=== PATIENT | female | born 2000 | race Caucasian/White ===

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

== ENCOUNTER 2018-06-10 15:15 | Emergency (ER) | payer OTHER, SELFPAY ==
[2018-06-10 15:15] VITALS: BP 123/67; PULSE 62; RESP 18; TEMP 36.6; O2SAT 98; BMI 26.4
--- NOTE | 2018-06-10 15:47 | ED.VISSUMM ---
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 she believes she strained her back at work. She indicates she has pain to the lumbar back that is worse when she moves turns twists or tries to tie her shoes. She denies bowel or bladder complaints she does report history of sciatica that is been stable she had no direct trauma to her back, she is on Mirena control she denies being she has had no fever no cough again no bowel or bladder incontinence or symptoms or paresthesias in the area. She is taking ninx-yiz-ofxxyod meds with minimal improvement she is try to avoid the work activity but went to work recently and exacerbated things. She did Physical Examination: [] She is resting in the bed in no distress blood pressure is 123/67 head neck chest unremarkable abdomen soft nontender upper lower extremities unremarkable abdomen soft and nontender she complains of vague pain to the low lumbar back there is no pain to palpation to the T-spine lumbar spine really more over the SI joint she is able to stand and walk without difficulty she can toe raise heel raise knee bend and walk with no abnormalities there is no neurologic findings and she denies perineal anesthesia no signs of cauda equina and no trauma Test Results: [] Emergency Department Course and Treatment: [] Have a long conversation with her she agreed and imaging is deferred she will be started on nonsteroidals Flexeril off work and she will follow with her family doctor the next few days return for change in symptoms we offered her IM Toradol and she declined it Treatment Plan: [] Disposition: [] Home stable Impression: [] Acute lumbar back pain strain This note was generated with [employer] dictation software. It may contain incorrect words, spelling, and punctuation that were not noted in review of the chart prior to signing ED Disposition - Plan for ED Patient: Chief Complaint: Back Referrals: Ewelina Jarvis MD [Primary Care Provider] -
--- NOTE | 2018-06-10 15:50 | ED.DCSUM_ITS ---
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 she believes she strained her back at work. She indicates she has pain to the lumbar back that is worse when she moves turns twists or tries to tie her shoes. She denies bowel or bladder complaints she does report history of sciatica that is been stable she had no direct trauma to her back, she is on Mirena control she denies being she has had no fever no cough again no bowel or bladder incontinence or symptoms or paresthesias in the area. She is taking aquz-dkr-pjnhtyy meds with minimal improvement she is try to avoid the work activity but went to work recently and exacerbated things. She did Physical Examination: [] She is resting in the bed in no distress blood pressure is 123/67 head neck chest unremarkable abdomen soft nontender upper lower extremities unremarkable abdomen soft and nontender she complains of vague pain to the low lumbar back there is no pain to palpation to the T-spine lumbar spine really more over the SI joint she is able to stand and walk without difficulty she can toe raise heel raise knee bend and walk with no abnormalities there is no neurologic findings and she denies perineal anesthesia no signs of cauda equina and no trauma Test Results: [] Emergency Department Course and Treatment: [] Have a long conversation with her she agreed and imaging is deferred she will be started on nonsteroidals Flexeril off work and she will follow with her family doctor the next few days return for change in symptoms we offered her IM Toradol and she declined it Treatment Plan: [] Disposition: [] Home stable Impression: [] Acute lumbar back pain strain This note was generated with [employer] dictation software. It may contain incorrect words, spelling, and punctuation that were not noted in review of the chart prior to signing ED Disposition - Plan for ED Patient: Chief Complaint: Back Referrals: Ewelina Jarvis MD [Primary Care Provider] -
--- NOTE | 2018-06-10 15:50 | ED.DEP ---
ED Disposition - Plan for ED Patient: Chief Complaint: Back Instructions: ED Spasm Back No Trauma Prescriptions: Naproxen [Naprosyn] 500 mg PO BID PRN #20 tab Cyclobenzaprine [Flexeril] 10 mg PO TID PRN #10 tab PRN Reason: Muscle Spasm Referrals: Ewelina Jarvis MD [Primary Care Provider] -
--- NOTE | 2018-06-10 16:05 | ED.RN ---
DISCHARGE INSTRUCTIONS GIVEN TO AND REVIEWED WITH PATIENT, PATIENT DENIES QUESTIONS OR CONCERNS AND VOICES UNDERSTANDING OF DISCHARGE INSTRUCTIONS. PT AMBULATES OUT OF ROOM WITH STEADY GAIT.
== END 2018-06-10 16:05 | disposition home or self-care (01) ==
LOC: ED 15:41
PROVIDERS: Emergency Provider Emergency Medicine; Family Provider Pediatrics; PCP Pediatrics
DX: S39.012A Strain of muscle, fascia and tendon of lower back, initial encounter (principal); X50.1XXA Overexertion from prolonged static or awkward postures, initial encounter; Y93.89 Activity, other specified; Y92.511 Restaurant or cafe as the place of occurrence of the external cause; Y99.0 Civilian activity done for income or pay
CPT/HCPCS: 99282

== ENCOUNTER → 2018-09-15 11:50 | Outpatient (CLI) | payer OTHER, SELFPAY ==
[2018-06-27 13:32] VITALS: BMI 26.4
--- NOTE | 2018-09-15 11:54 | RAD_ITS ---
STUDY: X-RAY CHEST REASON FOR EXAM: Female, 18 years old. One-month history of cough. TECHNIQUE: PA and lateral views of the chest. COMPARISON: Comparison is made with prior study dated February 11, 2016. FINDINGS: The lungs are clear and expanded. There is no demonstrated pleural abnormality. Normal size heart. Normal mediastinum and irwin. Normal visualized pulmonary arteries. Normal visualized aortic arch and descending thoracic aorta. Normal visualized thoracic spine. Normal visualized ribs, clavicles, and shoulders. There is no demonstrated abnormality of the visualized soft tissue structures of the upper abdomen. RAD/Chest PA and Lateral IMPRESSION: Normal x-ray examination of the chest. Electronically Signed: Jan Polanco MD at 12:46 EST , Service support ,
== END ==
LOC: MTRAD 11:53
PROVIDERS: Family Provider Pediatrics; PCP Pediatrics; Referring Provider Pediatrics; Visit Provider Pediatrics
DX: R05 Cough (principal)
CPT/HCPCS: 71046

== ENCOUNTER → 2018-10-09 13:15 | Outpatient (CLI) | payer OTHER, SELFPAY ==
[2018-10-04 13:35] VITALS: BMI 26.4
--- NOTE | 2018-10-09 13:19 | US_ITS ---
STUDY: ULTRASOUND TRANSVAGINAL CLINICAL: Female, 18 years old. Pelvic pain one month, IUD check. TECHNIQUE: Transvaginal (Transvaginal imaging erformed for enhanced visualization of uterus and endometrium, and posterior adnexal structures). COMPARISON: None. FINDINGS: Anteverted uterus 6.7 x 4.8 x 3.1 cm with normal myometrial echotexture. Endometrium 5 mm, normal echotexture. Intrauterine device positioned within the endometrial canal of the fundus, appropriate positioning without evidence of abnormal migration. Normal cervix. There is no cul-de-sac or adnexal free fluid. The right ovary measures 35 x 35 x 26 mm and the left ovary 28 x 31 x 16 mm. It exhibits appropriate vascularity. The left ovary contains several small physiologic follicles. The right ovary contains multiple follicles the largest measuring approximate 16 mm and 13 mm respectively. Some of the follicles are aligned in each ovary in a string of pearls pattern along the periphery of the ovary suggesting the possibility of polycystic ovary syndrome. There is no adnexal mass or suspicious cyst. US/Transvaginal Non- IMPRESSION: Appropriate position of the IUD. Multi-follicular appearance of the ovaries bilaterally greater on the right. Correlate clinically for any symptoms at its manifestation of polycystic ovary syndrome. Electronically Signed: Tom Clark MD at 17:36 EDT Tel , Service support ,
--- NOTE | 2018-10-09 13:19 | US_ITS ---
STUDY: ULTRASOUND TRANSVAGINAL CLINICAL: Female, 18 years old. Pelvic pain one month, IUD check. TECHNIQUE: Transvaginal (Transvaginal imaging erformed for enhanced visualization of uterus and endometrium, and posterior adnexal structures). COMPARISON: None. FINDINGS: Anteverted uterus 6.7 x 4.8 x 3.1 cm with normal myometrial echotexture. Endometrium 5 mm, normal echotexture. Intrauterine device positioned within the endometrial canal of the fundus, appropriate positioning without evidence of abnormal migration. Normal cervix. There is no cul-de-sac or adnexal free fluid. The right ovary measures 35 x 35 x 26 mm and the left ovary 28 x 31 x 16 mm. It exhibits appropriate vascularity. The left ovary contains several small physiologic follicles. The right ovary contains multiple follicles the largest measuring approximate 16 mm and 13 mm respectively. Some of the follicles are aligned in each ovary in a string of pearls pattern along the periphery of the ovary suggesting the possibility of polycystic ovary syndrome. There is no adnexal mass or suspicious cyst. US/Pelvic (Non ) IMPRESSION: Appropriate position of the IUD. Multi-follicular appearance of the ovaries bilaterally greater on the right. Correlate clinically for any symptoms at its manifestation of polycystic ovary syndrome. Electronically Signed: Tom Clark MD at 17:36 EDT Tel , Service support ,
== END ==
PROVIDERS: Family Provider Pediatrics; PCP Pediatrics; Referring Provider Nurse Practitioner Women's Health; Visit Provider Nurse Practitioner Women's Health
DX: R10.2 Pelvic and perineal pain (principal); Z30.431 Encounter for routine checking of intrauterine contraceptive device
CPT/HCPCS: 76830; 76856; 93976

== ENCOUNTER → 2019-11-22 | Outpatient (CLI) | payer OTHER, SELFPAY ==
[2019-11-22 09:53] VITALS: BMI 26.4
== END | disposition home or self-care (01) ==
LOC: LABSPEC 13:03
PROVIDERS: Referring Provider Nurse Practitioner Women's Health; Visit Provider Nurse Practitioner Women's Health
DX: N39.0 Urinary tract infection, site not specified (principal); N76.0 Acute vaginitis
CPT/HCPCS: 87070; 87077; 87086; 87205

== ENCOUNTER → 2021-01-29 16:21 | Outpatient (CLI) | payer OTHER, SELFPAY ==
[2020-02-13 09:17] VITALS: BMI 26.4
--- NOTE | 2021-01-29 16:23 | CT_ITS ---
STUDY: CTA CHEST REASON FOR EXAM: Female, 20 years old. CHEST PAIN RADIATION DOSAGE (If Supplied By Facility): CTDIvol = ( 3.98 ) mGy, DLP = ( 113.98 ) mGycm TECHNIQUE: The examination was performed with the intravenous administration of IV 100mL Isovue-370. Post-processing of the angiographic images was performed, with multiplanar reformation and 3D reconstruction. Individualized dose optimization techniques were used for this CT. COMPARISON: None. FINDINGS: Normal enhancement of the main pulmonary artery and right and left pulmonary arteries. Normal enhancement of the bilateral peripheral pulmonary arteries. There is no demonstrated pulmonary embolism. Normal thoracic aorta and visualized great vessels. There is no demonstrated aortic dissection. Normal heart and pericardium. Normal mediastinum. Normal hilar regions. Normal visualized trachea and bronchi. The lungs are well expanded. Normal pulmonary parenchyma. Normal pleura. Normal chest wall structures. Normal osseous structures. Normal visualized upper abdomen. CT/CTA Chest W/WO Contrast IMPRESSION: Normal CTA chest examination, without a demonstrated pulmonary embolism or arterial dissection. Electronically Signed: Tom Cherry MD at 17:17 EDT Tel , Service support ,
== END ==
PROVIDERS: PCP Nurse Practitioner; Referring Provider Nurse Practitioner; Visit Provider Nurse Practitioner
DX: R07.9 Chest pain, unspecified (principal)
CPT/HCPCS: 71275; Q9967

== ENCOUNTER 2023-06-13 10:58 | Emergency (ER) | payer OTHER, SELFPAY ==
[2023-06-13 10:59] VITALS: BP 121/106; PULSE 70; RESP 18; TEMP 36.4; O2SAT 96; BMI 23.6
--- NOTE | 2023-06-13 11:28 | CT_ITS ---
STUDY: CT ABDOMEN AND PELVIS WITH CONTRAST REASON FOR EXAM: Female, 23 years old. rlq pain with nausea and vomiting. RADIATION DOSAGE (If Supplied By Facility): CTDIvol = ( 13.08 ) mGy, DLP = ( 440.32 ) mGycm TECHNIQUE: Transaxial images were obtained from the dome of the diaphragm to the symphysis pubis without oral contrast. IV 100mL Isovue-370 was administered. Sagittal and coronal images were reconstructed. Individualized dose optimization techniques were used for this CT. COMPARISON: None. FINDINGS: The visualized lung bases are unremarkable. The visualized portions of the heart are within normal limits. Mild degree of the periportal edematous changes in the liver. Normal gallbladder and extrahepatic biliary system. Normal spleen. Normal pancreas. Normal bilateral adrenal glands. Normal right kidney. There is a 6.9 mm x 5 mm cyst in the lower pole of the left kidney. Normal visualized stomach. Normal small intestine. Normal colon. The appendix is visualized and appears normal. Normal abdominal aorta. Normal inferior vena cava. Normal retroperitoneum. Normal urinary bladder. There is a 3.3 cm x 2.3 some persistent the right ovary. Follicles are seen in the left ovary. Normal abdominal wall. Normal osseous structures. CT/Abdomen/Pelvis W IV Cont ONLY IMPRESSION: Mild degree of periportal edema in the liver. Small right ovarian cyst. Follicles are seen in the left ovary. Electronically Signed: Jan Polanco MD at 13:01 EST ,
--- NOTE | 2023-06-13 11:29 | EDS_ITS ---
HPI <EM Bautista - Last Filed: 06/13/23 14:05> History of Present Illness Chief Complaint: Nausea/Vomiting/Diarrhea Narrative Narrative: 23-year-old female with past medical history of PCOS developed upper abdominal pain and nausea and vomiting yesterday at 5 AM. Pain moved to the right upper and lower quadrant area. She feels nauseous with decreased appetite today but no vomiting. No fever or chills. No urinary symptoms. She has bowel movements every few days and states they were watery yesterday. No melena or hematochezia. She takes no medications and has no abdominal surgical history. PFSH <EM Bautista - Last Filed: 06/13/23 14:05> [facility] Medical History (Updated 06/13/23 @ 13:12 by EM Bautista) Depression with anxiety Physical exam, pre-employment Vasovagal syncope Home Medications norelgestromin 150 mcg-e.estradiol 35 mcg/24 hr weekly transderm patch (Xulane) 1 patch transdermal QWEEK #3 ea 10/19/21 [Rx Last Taken Unknown] naproxen 500 mg tablet (Naprosyn) 500 mg PO BID PRN pain #20 tabs 06/13/23 [Rx Last Taken Unknown] ondansetron 4 mg disintegrating tablet 4 mg PO Q8H PRN PRN Nausea #10 tabs 06/13/23 [Rx Last Taken Unknown] Allergy/AdvReac Type Severity Reaction Status Date / Time amoxicillin [Amoxicillin] Allergy Unknown Verified 06/13/23 10:59 Family History Grandfather Lung cancer Hypertension Heart disease Father Multiple sclerosis Prostate cancer Grandfather Parkinsons disease Other Cancer Social History Smoking Status: Current every day smoker tobacco type: e-cigarettes alcohol intake: current details: occasionally substance use type: does not use caffeine: Yes what type of physical activity do you participate in: running frequency: 1-2 times per week seatbelt use: never do you feel safe at home: Yes additional social history: Single ROS <EM Bautista - Last Filed: 06/13/23 14:05> ROS ED ROS Narrative Constitutional: Negative for fever, chills, malaise. CVS: Negative for palpitations, chest pain. Respiratory: Negative for shortness of breath, cough. GI: Positive for abdominal pain, nausea, vomiting, diarrhea. Negative for melena, hematochezia. : Negative for dysuria, hematuria or frequency. EXAM <ME Bautista - Last Filed: 06/13/23 14:05> Physical Exam Narrative Exam Narrative: CONST: Patient sitting in no acute distress. EYES: Normal inspection. NECK: Normal inspection. RESP: No respiratory distress, CTAB. CVS: Regular rate and rhythm, no murmur, no gallop. ABD: Soft with generalized tenderness maximal in RLQ, no guarding or rebound, nondistended, no hepatosplenomegaly. SKIN: Color normal, no rash, warm, dry, intact. EXTREMITIES: Normal appearance, no pedal edema. NEURO: Oriented x4. PSYCH: Normal affect. Const Vital Signs: 06/13/23 10:59 06/13/23 13:20 Temperature 97.6 F L 97.6 F L Temperature Source Temporal Pulse Rate 70 64 Respiratory Rate 18 14 Blood Pressure 121/106 H Blood Pressure Mean 111 Pulse Ox 96 Oxygen Delivery Method Room Air <Dr. Jacques Woodall MD - Last Filed: 06/13/23 11:36> Physical Exam Const Vital Signs: 06/13/23 10:59 06/13/23 13:20 Temperature 97.6 F L 97.6 F L Temperature Source Temporal Pulse Rate 70 64 Respiratory Rate 18 14 Blood Pressure 121/106 H Blood Pressure Mean 111 Pulse Ox 96 Oxygen Delivery Method Room Air MDM <EM Bautista - Last Filed: 06/13/23 14:05> [facility] Narrative Medical decision making narrative: Patient has nausea and vomiting and abdominal pain. Initially started higher now settled in right lower quadrant. She appears well nontoxic. Afebrile with normal vital signs. Normal cardiopulmonary exam. She has generalized tenderness maximal in the right lower quadrant with no peritoneal signs. Differential includes appendicitis, ovarian etiology, gastritis. CBC is within normal limits with white count of 7.5. CMP unremarkable. Urine test negative. CT was obtained and shows small right ovarian cyst. No evidence of appendicitis. Patient feels improved after analgesia and antiemetics. I do not suspect torsion or think she needs an emergent ultrasound. I prescribed naproxen and Zofran and recommended follow-up with her TERMITE CONTROL REPRESENTATIVE. She was discharged in stable condition. I have personally performed a face to face assessment of the patient and have reviewed the DORA Note. I performed a substantive portion of the visit including all aspects of the following. My parada findings include: History is a 23-year-old female history of PCOS. No prior history of abdominal surgery. Yesterday started having nausea and vomiting and diffuse abdominal pain that is now localized to her right lower quadrant. Denies any fever. No dysuria. Exam is [well-appearing 23-year-old female. Vital signs stable afebrile. HEENT exam unremarkable. Neck nontender no JVD. Lungs clear to auscultation bilaterally. Heart regular rhythm no murmur rate about 70. Abdomen soft nondistended normal bowel sounds. Tender in the right lower quadrant. Mild guarding. No rigidity. No distention. Right upper and both left upper and left lower quadrants are unremarkable. No hernia or mass. Extremities unremarkable. Back nontender. She is awake and alert.] Medical Decision Making [3-year-old female that I am seeing with our PA. We will out appendicitis versus viral illness versus polycystic ovarian syndrome versus other etiologies.] Other additions or changes: [None] Lab Data Labs: Laboratory Results - last 24 hr 06/13/23 06/13/23 11:40 12:04 WBC 7.5 RBC 4.24 Hgb 13.3 Hct 41.1 MCV 96.9 MCH 31.4 MCHC 32.4 RDW Std Deviation 41.7 RDW Coeff of Dell 11.8 Plt Count 340 MPV 9.5 Immature Gran % (Auto) 0.300 Neut % (Auto) 56.3 Lymph % (Auto) 33.3 [place] % (Auto) 8.3 Eos % (Auto) 1.1 Baso % (Auto) 0.7 Absolute Neuts (auto) 4.2 Absolute Lymphs (auto) 2.50 Nucleated RBC % 0 Sodium 140 Potassium 3.6 Chloride 105 Carbon Dioxide 25.0 Anion Gap 10 BUN 8 Creatinine 0.72 Estim Creat Clear Calc 85.80 Est GFR (MDRD) Af Amer 127 Est GFR (MDRD) Non-Af 105 BUN/Creatinine Ratio 11.1 Glucose 86 Calcium 9.1 Total Bilirubin 0.60 AST 8 L ALT 16 Alkaline Phosphatase 51 Total Protein 8.1 Albumin 4.5 Globulin 3.6 Albumin/Globulin Ratio 1.2 Serum , Qual NEGATIVE Radiography Diagnostic Testing: Clinical Impression(s) from Imaging Studies Abdomen/Pelvis CT 06/13/23 11:28 IMPRESSION: Mild degree of periportal edema in the liver. Small right ovarian cyst. Follicles are seen in the left ovary. Electronically Signed: Jan Polanco MD at 13:01 EST , <Dr. Jacques Woodall MD - Last Filed: 06/13/23 11:36> MDM MDM Narrative Medical decision making narrative: I have personally performed a face to face assessment of the patient and have reviewed the DORA Note. I performed a substantive portion of the visit including all aspects of the following. My parada findings include: History is a 23-year-old female history of PCOS. No prior history of abdominal surgery. Yesterday started having nausea and vomiting and diffuse abdominal pain that is now localized to her right lower quadrant. Denies any fever. No dysuria. Exam is [well-appearing 23-year-old female. Vital signs stable afebrile. HEENT exam unremarkable. Neck nontender no JVD. Lungs clear to auscultation bilaterally. Heart regular rhythm no murmur rate about 70. Abdomen soft nondistended normal bowel sounds. Tender in the right lower quadrant. Mild guarding. No rigidity. No distention. Right upper and both left upper and left lower quadrants are unremarkable. No hernia or mass. Extremities unremarkable. Back nontender. She is awake and alert.] Medical Decision Making [3-year-old female that I am seeing with our PA. We will out appendicitis versus viral illness versus polycystic ovarian syndrome versus other etiologies.] Other additions or changes: [None] History & Record Review Discussion w/independent historian: Patient and Family Additional record(s) reviewed:: Prior inpatient record, Prior outpatient record and Prior ED visit Lab Data Labs: Laboratory Results - last 24 hr 06/13/23 06/13/23 11:40 12:04 WBC 7.5 RBC 4.24 Hgb 13.3 Hct 41.1 MCV 96.9 MCH 31.4 MCHC 32.4 RDW Std Deviation 41.7 RDW Coeff of Dell 11.8 Plt Count 340 MPV 9.5 Immature Gran % (Auto) 0.300 Neut % (Auto) 56.3 Lymph % (Auto) 33.3 [place] % (Auto) 8.3 Eos % (Auto) 1.1 Baso % (Auto) 0.7 Absolute Neuts (auto) 4.2 Absolute Lymphs (auto) 2.50 Nucleated RBC % 0 Sodium 140 Potassium 3.6 Chloride 105 Carbon Dioxide 25.0 Anion Gap 10 BUN 8 Creatinine 0.72 Estim Creat Clear Calc 85.80 Est GFR (MDRD) Af Amer 127 Est GFR (MDRD) Non-Af 105 BUN/Creatinine Ratio 11.1 Glucose 86 Calcium 9.1 Total Bilirubin 0.60 AST 8 L ALT 16 Alkaline Phosphatase 51 Total Protein 8.1 Albumin 4.5 Globulin 3.6 Albumin/Globulin Ratio 1.2 Serum , Qual NEGATIVE Radiography Diagnostic Testing: Clinical Impression(s) from Imaging Studies Abdomen/Pelvis CT 06/13/23 11:28 IMPRESSION: Mild degree of periportal edema in the liver. Small right ovarian cyst. Follicles are seen in the left ovary. Electronically Signed: Jan Polanco MD at 13:01 EST , Discharge Plan Triage Chief Complaint: Nausea/Vomiting/Diarrhea ED Midlevel Provider: Ary Lewis ED Provider: Jacques Woodall Dx/Rx/DC Orders Clinical Impression: Ovarian cyst, right Instructions: ED Ovarian Cyst Prescriptions: New naproxen [Naprosyn] 500 mg tablet 500 mg PO BID PRN (Reason: pain) Qty: 20 0RF ondansetron 4 mg tablet,disintegrating 4 mg PO Q8H PRN PRN (Reason: Nausea) Qty: 10 0RF No Action Xulane 150-35 mcg/24 hr patch weekly 1 patch transdermal QWEEK Qty: 3 7RF Rx Instructions: apply once weekly for 3 weeks of a 4-week cycle Primary Care Provider: Claire Jeffries NP Referrals: Claire Jeffries BINITROTOLUENE OPERATOR, BINITROTOLUENE OPERATOR-C [Primary Care Provider] - Activity Restrictions/Additional Instructions: In addition to the prescribed medications you can take Tylenol 1000 mg every 6 hours. Follow-up with [facility]MITE CONTROL REPRESENTATIVE Disposition Disposition: Home, Self Care Discharge Date/Time: 06/13/23 13:21
[2023-06-13] MEDS: 0.9% Normal Saline (1000mL) 1,000 ML 999 ML IV (11:42)
[2023-06-13] MEDS: Morphine 4 MG/ML Syringe IV (11:43)
[2023-06-13] MEDS: Ondansetron 4 MG/2 ML Vial IV (11:43)
[2023-06-13 11:46] LABS: Absolute Neutrophil Count 4.2 X10^3/uL (2.0-7.7); Basophil# 0.05 X10^3/uL; Basophil% 0.7 % (0-1); Eosinophil# 0.08 X10^3/uL; Eosinophils% 1.1 % (0-5); Hematocrit 41.1 % (37-47); Hemoglobin 13.3 g/dL (12.0-15.0); Lymphocyte % 33.3 % (19-41); Mean Corp Hgb Conc 32.4 g/dL (32-36); Mean Corpuscular Hgb 31.4 pg (27.0-32.0); Mean Corpuscular Volume 96.9 fL (81-99); Mean Platelet Vol. 9.5 fl (6.2-12.0); Monocyte# 0.62 X10^3/uL; Monocyte% 8.3 % (0-10); NRBC Flagged by Analyzer 0 % (0-5); Neutrophil # 4.24 X10^3/uL (2.7-7.7); Neutrophil % 56.3 % (47-70); Platelet Count 340 K/mm3 (150-450); RBC Distribution Width CV 11.8 % (11.6-14.6); RBC Distribution Width SD 41.7 fl (35.1-43.9); Red Blood Count 4.24 M/mm3 (4.2-5.4); White Blood Count 7.5 K/mm3 (4.4-11.0)
[2023-06-13] MEDS: DiphenhydrAMINE 50 MG/ML Syringe 25 MG IV (11:59)
[2023-06-13 12:01] LABS: ALB/GLOB Ratio 1.2 RATIO (0.9-2.4); AST(SGOT) 8 U/L (15-37); Alanine Aminotransfer ALT/SGPT 16 U/L (13-56); Albumin, Serum 4.5 g/dL (3.2-5.0); Alkaline Phosphatase 51 U/L (45-117); Anion Gap 10 (5-15); BUN 8 mg/dL (7-18); BUN/Creat Ratio 11.1 RATIO (10-20); Calcium,Total 9.1 mg/dL (8.5-10.1); Chloride 105 mmol/L (98-107); Creatinine, Serum 0.72 mg/dL (0.55-1.02); EST Glomerular Filtration Rate 105 mL/min (>60); Est Glom Filt Rate - Afr Amer 127 mL/min (>60); Globulin 3.6 g/dL (2.2-4.2); Glucose 86 mg/dL (74-106); Potassium 3.6 mmol/L (3.5-5.1); Protein, Total 8.1 g/dL (6.4-8.2); Sodium Level 140 mmol/L (136-145)
[2023-06-13 13:02] LABS: Pregnancy, Serum, hCG Quali. NEGATIVE Negative (0-9 Nonpreg)
[2023-06-13] MEDS: proMETHazine 25 MG Tablet 12.5 MG PO (13:16)
[2023-06-13] MEDS: Ketorolac 15 MG/ML Vial IV (13:16)
[2023-06-13 13:20] VITALS: PULSE 64; RESP 14; TEMP 36.4
[2023-06-13 14:02] LABS: Internal QC Validated? YES +Cl - CLEAR BKGD
== END 2023-06-13 13:21 | disposition home or self-care (01) ==
PROVIDERS: Physician Assistant; Emergency Provider Emergency Medicine; PCP Nurse Practitioner; Visit Provider Emergency Medicine
DX: N83.201 Unspecified ovarian cyst, right side (principal); F17.290 Nicotine dependence, other tobacco product, uncomplicated
CPT/HCPCS: 74177; 80053; 84703; 85025; 96374; 96375; 99283; J7030; Q9967; A4216; J2405

== ENCOUNTER → 2023-11-29 | Outpatient (CLI) | payer OTHER, SELFPAY ==
[2023-11-29 18:20] LABS: Vitamin B12 276 pg/mL (211-911)
[2023-11-29 18:53] LABS: Thyroid Stim Hormone (TSH) 0.95 uIU/mL (0.358-3.74)
[2023-12-01 15:09] LABS: Endomysial Antibody IgA Negative (Negative); HEPATITIS B SURFACE AG Negative (Negative); Hep C Antibodies Non Reactive (Non Reactive); Hepatitis A IgM Antibody Negative (Negative); Hepatitis B Core AB IgM Negative (Negative); Immunoglobulin A 192 mg/dL (87-352); t-Transglutaminase IgA <2 U/mL (0-3)
== END | disposition home or self-care (01) ==
PROVIDERS: PCP Internal Medicine; Referring Provider Nurse Practitioner Family; Visit Provider Nurse Practitioner Family
DX: Z11.59 Encounter for screening for other viral diseases (principal); F41.9 Anxiety disorder, unspecified; E55.9 Vitamin D deficiency, unspecified; R10.84 Generalized abdominal pain
CPT/HCPCS: 36415; 80074; 82306; 82607; 82746; 82784; 83516; 84443; 86255

== ENCOUNTER → 2024-05-23 | Outpatient (CLI) | payer OTHER, SELFPAY ==
--- OUTSIDE RECORDS SUMMARY | 2024-05-23 19:21 | XMS RPT_ITS | CCD ---
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 Service: \plain\f0\fs20\hich\f0 \dbch\f0\loch\f0\cf4\f s20 \emdash\plain\f0\fs20\ hich\f0\dbch\f0\loch\f 0\fs20\cell \X0A\pard\intbl\sspar aaux0\s0\li80\ri80\sl2 4\ql\keepn\plain\f0\fs 24\plain\f0\fs20\hich\ f0\dbch\f0\loch\f0\cf3 \fs20 Author Type: \plain\f0\fs20\hich\f0 \dbch\f0\loch\f0\cf4\f s20 Registered Nurse\plain\f0\fs20\hi ch\f0\dbch\f0\loch\f0\ fs20\cell \X0A\intbl\row \X0A\pard\intbl\sspar aaux0\s0\sl24\ql\keepn \plain\f0\fs24\plain\f 0\fs20\hich\f0\dbch\f0 \loch\f0\fs20\cell \X0A\pard\intbl\sspar aaux0\s0\li80\ri80\sl2 4\ql\keepn\plain\f0\fs 24\plain\f0\fs20\hich\ f0\dbch\f0\loch\f0\cf3 \fs20 Filed: \plain\f0\fs20\hich\f0 \dbch\f0\loch\f0\cf4\f s20 05/31/2022 4:02 PM\plain\f0\fs20\hich\ f0\dbch\f0\loch\f0\fs2 0\cell \X0A\pard\intbl\sspar aaux0\s0\li80\ri80\sl2 4\ql\keepn\plain\f0\fs 24\earl (more content not included)... Normal [facility] .Auto Diffon 09-24-2021 Basophil, Absolute 0.10 10 3/mcL Normal 0.00-0.19 [facility] ([place]) Comment on above: Performed By: #### C BC, ADIFF, ANEU, LIP, CMP, GFR #### [address] [address] Basophils/100 WBC (Bld) 1.1 % Normal 0.0-2.5 [facility] ([place]) Comment on above: Performed By: #### C BC, ADIFF, ANEU, LIP, CMP, GFR #### [address] [address] Eosinophil, Absolute 0.10 10 3/mcL Normal 0.00-0.40 [facility] ([place]) Comment on above: Performed By: #### C BC, ADIFF, ANEU, LIP, CMP, GFR #### [address] [address] Eosinophils/100 WBC (Bld) 0.8 % Normal 0.0-7.0 [facility] ([place]) Comment on above: Performed By: #### C BC, ADIFF, ANEU, LIP, CMP, GFR #### [address] [place] [address] Lymphocyte, Absolute 3.50 10 3/mcL Normal 0.77-3.85 [facility] ([place]) Comment on above: Performed By: #### C BC, ADIFF, ANEU, LIP, CMP, GFR #### [address] [address] Lymphocytes/100 WBC (Bld) 34.2 % Normal 10.0-50.0 [facility] ([place]) Comment on above: Performed By: #### C BC, ADIFF, ANEU, LIP, CMP, GFR #### [address] [address] Monocyte, Absolute 1.00 10 3/mcL Normal 0.15-1.00 [facility] ([place]) Comment on above: Performed By: #### C BC, ADIFF, ANEU, LIP, CMP, GFR #### [address] [address] Monocytes/100 WBC (Bld) 9.6 % Normal 1.7-13.0 [facility] ([place]) Comment on above: Performed By: #### C BC, ADIFF, ANEU, LIP, CMP, GFR #### [address] [address] Neutrophils/100 WBC (Bld) 54.3 % Normal 37.0-80.0 [facility] ([place]) Comment on above: Performed By: #### C BC, ADIFF, ANEU, LIP, CMP, GFR #### [address] [address] .GFRon 09-24-2021 GFR 109 ml/min/1.73sqm Normal [facility] ([place]) Comment on above: Result Comment: GFR Population mean for , Non- Americans Ages 20-29 = 116 mL/min/1.73 sq.m. Ages 30-39 = 107 mL/min/1.73 sq.m. Ages 40-49 = 99 mL/min/1.73 sq.m. Ages 50-59 = 93 mL/min/1.73 sq.m. Ages 60-69 = 85 mL/min/1.73 sq.m. Ages 70+ = 75 mL/min/1.73 sq.m. Chronic Kidney Disease: Less than 60 mL/min/1.73 square meters End Stage Renal Disease: Less than 15 mL/min/1.73 square meters Performed By: #### C BC, ADIFF, ANEU, LIP, CMP, GFR #### [address] [address] GFR Non- 90 ml/min/1.73sqm Normal [facility] ([place]) Comment on above: Result Comment: GFR Population mean for , Non- Americans Ages 20-29 = 116 mL/min/1.73 sq.m. Ages 30-39 = 107 mL/min/1.73 sq.m. Ages 40-49 = 99 mL/min/1.73 sq.m. Ages 50-59 = 93 mL/min/1.73 sq.m. Ages 60-69 = 85 mL/min/1.73 sq.m. Ages 70+ = 75 mL/min/1.73 sq.m. Chronic Kidney Disease: Less than 60 mL/min/1.73 square meters End Stage Renal Disease: Less than 15 mL/min/1.73 square meters Performed By: #### C BC, ADIFF, ANEU, LIP, CMP, GFR #### [address] [address] .NEUABSon 09-24-2021 Neutrophil, Absolute 5.60 10 3/mcL Normal 2.85-6.16 [facility] ([place]) Comment on above: Performed By: #### C BC, ADIFF, ANEU, LIP, CMP, GFR #### [address] [address] CBCon 09-24-2021 Erythrocyte distribution width (RBC) [Ratio] 11.9 % Normal 11.5-14.5 [facility] ([place]) Comment on above: Performed By: #### C BC, ADIFF, ANEU, LIP, CMP, GFR #### [address] [address] Hematocrit (Bld) [Volume fraction] 36.9 % Low 37.0-47.0 [facility] ([place]) Comment on above: Performed By: #### C BC, ADIFF, ANEU, LIP, CMP, GFR #### [address] [address] Hgb 12.2 G/dL Normal 12.0-16.0 [facility] ([place]) Comment on above: Performed By: #### C BC, ADIFF, ANEU, LIP, CMP, GFR #### [address] [address] MCH (RBC) [Entitic mass] 31.7 pg High 27.0-31.2 [facility] ([place]) Comment on above: Performed By: #### C BC, ADIFF, ANEU, LIP, CMP, GFR #### [address] [address] MCHC 33.1 G/dL Normal 33.0-37.0 [facility] ([place]) Comment on above: Performed By: #### C BC, ADIFF, ANEU, LIP, CMP, GFR #### [address] [address] MCV (RBC) [Entitic vol] 95.7 fL High 80.0-94.0 [facility] ([place]) Comment on above: Performed By: #### C BC, ADIFF, ANEU, LIP, CMP, GFR #### [address] [address] Platelet 342 10 3/mcL Normal 130-400 [facility] ([place]) Comment on above: Performed By: #### C BC, ADIFF, ANEU, LIP, CMP, GFR #### [address] [address] Platelet mean volume (Bld) [Entitic vol] 7.9 fL Normal 7.4-10.4 [facility] ([place]) Comment on above: Performed By: #### C BC, ADIFF, ANEU, LIP, CMP, GFR #### [address] [address] RBC 3.86 10 6/mcL Low 4.20-5.40 [facility] ([place]) Comment on above: Performed By: #### C BC, ADIFF, ANEU, LIP, CMP, GFR #### [address] [address] WBC 10.30 10 3/mcL Normal 4.60-10.80 [facility] ([place]) Comment on above: Performed By: #### C BC, ADIFF, ANEU, LIP, CMP, GFR #### [address] [address] CMPon 09-24-2021 Albumin Level 4.2 G/dL Normal 3.5-5.0 [facility] ([place]) Comment on above: Performed By: #### C BC, ADIFF, ANEU, LIP, CMP, GFR #### [address] [address] Albumin/Globulin [Mass ratio] 1.8 {ratio} Normal 1.1-2.5 [facility] ([place]) Comment on above: Performed By: #### C BC, ADIFF, ANEU, LIP, CMP, GFR #### [address] [address] ALP [Catalytic activity/Vol] 46 U/L Normal 40-135 [facility] ([place]) Comment on above: Performed By: #### C BC, ADIFF, ANEU, LIP, CMP, GFR #### [address] [address] ALT [Catalytic activity/Vol] 16 U/L Normal 14-59 [facility] ([place]) Comment on above: Performed By: #### C BC, ADIFF, ANEU, LIP, CMP, GFR #### [address] [address] AST [Catalytic activity/Vol] 12 U/L Normal 10-40 [facility] ([place]) Comment on above: Performed By: #### C BC, ADIFF, ANEU, LIP, CMP, GFR #### [address] [address] Bili Total 0.7 mg/dL Normal 0.2-1.0 [facility] ([place]) Comment on above: Result Comment: Use of this assay is not recommended for patients undergoing treatment with eltrombopag due to the potential for falsely elevated results. Performed By: #### C BC, ADIFF, ANEU, LIP, CMP, GFR #### [address] [address] BUN/Creatinine Ratio 15 ratio Normal 7-27 [facility] ([place]) Comment on above: Performed By: #### C BC, ADIFF, ANEU, LIP, CMP, GFR #### [address] [address] Calcium [Mass/Vol] 8.5 mg/dL Normal 8.4-10.2 [facility] ([place]) Comment on above: Performed By: #### C BC, ADIFF, ANEU, LIP, CMP, GFR #### [address] [address] Chloride [Moles/Vol] 105 mmol/L Normal 98-107 [facility] ([place]) Comment on above: Performed By: #### C BC, ADIFF, ANEU, LIP, CMP, GFR #### [address] [address] CO2 [Moles/Vol] 24 mmol/L Normal 22-29 [facility] ([place]) Comment on above: Performed By: #### C BC, ADIFF, ANEU, LIP, CMP, GFR #### [address] [address] Creatinine [Mass/Vol] 0.79 mg/dL Normal 0.55-1.02 [facility] ([place]) Comment on above: Performed By: #### C BC, ADIFF, ANEU, LIP, CMP, GFR #### [address] [address] Electrolyte Balance 12.0 mEq/L Normal 4.0-15.0 [facility] ([place]) Comment on above: Performed By: #### C BC, ADIFF, ANEU, LIP, CMP, GFR #### [address] [address] Globulin 2.4 G/dL Normal [facility] ([place]) Comment on above: Performed By: #### C BC, ADIFF, ANEU, LIP, CMP, GFR #### [address] [address] Glucose [Mass/Vol] 93 mg/dL Normal 70-105 [facility] ([place]) Comment on above: Performed By: #### C BC, ADIFF, ANEU, LIP, CMP, GFR #### [address] [address] Potassium [Moles/Vol] 3.5 mmol/L Normal 3.5-5.1 [facility] ([place]) Comment on above: Performed By: #### C BC, ADIFF, ANEU, LIP, CMP, GFR #### [address] [address] Sodium [Moles/Vol] 141 mmol/L Normal 136-145 [facility] ([place]) Comment on above: Performed By: #### C BC, ADIFF, ANEU, LIP, CMP, GFR #### [address] [address] Total Protein 6.6 G/dL Normal 6.4-8.2 [facility]) Comment on above: Performed By: #### C BC, ADIFF, ANEU, LIP, CMP, GFR #### [address] [address] Urea nitrogen [Mass/Vol] 12 mg/dL Normal 7-18 [facility]) Comment on above: Performed By: #### C BC, ADIFF, ANEU, LIP, CMP, GFR #### [address] [address] [place] 09-24-2021 [facility] ANYI JENK[facility] ([id number]) 2000 F Date Time Provider Department 09/24/21 KASSIE CARMONA During your visit today, we recorded the following information about you: Lupe Annelise 09/24/2021 1:10 PM Signed ----- Message from Kassie Carmona APRN.BENCH PRESS OPERATOR sent at 09/24/2021 12:27 PM EST ----- Urine culture was normal. BV, yeast, and trichomonas test was negative. RY Conley 09/24/2021 1:11 PM Signed Patient given results and verbalized understanding of instructions given. Lupe Osborne Allergies As of Date: 09/24/2021 Noted Allergy Reaction AMOXICILLIN 02/12/2013 2 - Rash Date Reviewed: 09/22/2021 Reviewed by: Minh Durand APRN.BENCH PRESS OPERATOR - Fully Assessed Reason for Visit: Results [95] Prescriptions as of 09/24/2021 - benzonatate (TESSALON PERLE) 100 mg capsule Take 2 capsules by mouth three times daily as needed. - ondansetron orally disintegrating (ZOFRAN ODT) 4 mg disintegrating tablet Take 1 tablet by mouth every 6 hours as needed for Nausea/Vomiting. - albuterol HFA (PROAIR HFA) 90 mcg/actuation inhaler Inhale 2 Puffs as instructed every 4 hours as needed. Problem List As Of Date: 09/24/2021 (None) Encounter Status:Closed by LUPE OSBORNE on 09/24/21 Normal [facility] CT ABD/PELVIS W/ IV CONTRAST ONLYon 09-24-2021 CT ABD/PELVIS W/ IV CONTRAST ONLY ORIGINAL EXAMINATION: CT OF THE ABDOMEN AND PELVIS WITH CONTRAST 09/24/2021 8:15 am TECHNIQUE: CT of the abdomen and pelvis was performed with the administration of intravenous contrast. Multiplanar reformatted images are provided for review. Dose modulation, iterative reconstruction, and/or weight based adjustment of the mA/kV was utilized to reduce the radiation dose to as low as reasonably achievable. COMPARISON: None. HISTORY: ORDERING SYSTEM PROVIDED HISTORY: Reason for Exam: abdominal pain/flank pain Left flank pain FINDINGS: Lower Chest: Lung bases demonstrate mild atelectasis. Organs: Liver demonstrates patchy peripheral irregular enhancement and prominent distension of the intrahepatic portal veins. This appears as a edematous appearance adjacent to the patent vasculature. The spleen is mildly heterogeneous otherwise within normal limits. The adrenal glands and gallbladder appear within normal limits. The pancreas appears within limits. Left kidney demonstrates a subcentimeter hypodensity which is too small to accurately characterize statistically likely to represent cysts otherwise, the kidneys are within normal limits. GI/Bowel: Under distension of the stomach noted. The appendix is visualized in the right lower quadrant and appears within normal limits. No obstructive change of the bowel. Pelvis: Urinary bladder is mildly enlarged and otherwise within normal limits. Uterus is present with an IUD. Ovaries are present. Peritoneum/Retroperito neum: No free air or enlarged lymphadenopathy in the abdomen or pelvis. Trace free fluid in pelvis is likely physiologic. Bones/Soft Tissues: No acute or aggressive osseous abnormality. IMPRESSION: Mildly heterogeneous appearance of liver enhancement and prominent periportal edema. These findings are nonspecific but can be seen the setting of over-hydration or alternatively etiology such as hepatitis. Recommend correlation with flu status as well as laboratory values. Given fullness of the IVC, fluid status is considered slightly more likely. Interpreted by: Mal Lee Preliminary Report By: Mal Lee Electronically signed By Mal Lee Dictated Date: 09/24/2021 8:21:08 AM Prelim Date: 09/24/2021 8:28:26 AM Sign Date: 09/24/2021 8:28:26 AM Ordering Provider: ANDRE KING [facility]) HEPACon 09-24-2021 Hep A IgM Ab Non-Reactive Normal Non-Reactive [facility] ([place]) Comment on above: Performed By: #### H EPAC #### [address] [address] Hep A IgM Ab Int [facility] ([place]) Comment on above: Result Comment: No s erological evidence of a current Hepatitis A infection. See Interp Performed By: #### H EPAC #### [address] [address] Hep B Core IgM Ab Non-Reactive Normal Non-Reactive [facility]) Comment on above: Performed By: #### H EPAC #### [address] [address] Hep B Core IgM Ab Int Normal [facility] ([place]) Comment on above: Result Comment: Samp les with a value < 0.80 Index are considered nonreactive (negative) for IgM antibodies to hepatitis B core antigen. See Interp Performed By: #### H EPAC #### [place] [address] Hep B Surf Ag Non-Reactive Normal Non-Reactive [facility] ([place]) Comment on above: Performed By: #### H EPAC #### [place] [id number] Hep C Ab Non-Reactive Normal Non-Reactive [facility] ([place]) Comment on above: Performed By: #### H EPAC #### [place] [address] Hep C Ab Int [facility] ([place]) Comment on above: Result Comment: Nonr eactive: Samples with a value < 0.80 are considered nonreactive (negative) for antibodies to HCV. A negative test result does not exclude the possibility of exposure to or infection with HCV. HCV antibodies may be undetectable in some stages of the infection and in some clinical conditions. See Interp Performed By: #### H EPAC #### [address] [address] LIPon 09-24-2021 Lipase Level 75 U/L Normal 73-393 [facility] ([place]) Comment on above: Performed By: #### C BC, ADIFF, ANEU, LIP, CMP, GFR #### [place]te[address] [address] PREGUon 09-24-2021 HCG ( test) Ql (U) Negative Normal [facility] ([place]) Comment on above: Performed By: #### P REGU, UA #### [place] [address] [place], [place] [address] test (u) int Not detected Invalid Interpretation Code [facility] ([place]) Comment on above: Performed By: #### P REGU, UA #### [address] [address] UAon 09-24-2021 Color (U) Yellow Normal [facility] ([place]) Comment on above: Performed By: #### P REGU, UA #### [place] [address] Glucose (U) [Mass/Vol] Negative Normal Negative [facility] ([place]) Comment on above: Performed By: #### P REGU, UA #### [place] [address] Ketones Ql (U) Negative Normal Negative [facility] ([place]) Comment on above: Performed By: #### P REGU, UA #### [place] [address] UA Appear Clear Normal Clear [facility] ([place]) Comment on above: Performed By: #### P REGU, UA #### [place] [address] UA Blood Negative Normal Negative [facility] ([place]) Comment on above: Performed By: #### P REGU, UA #### [place] [address] UA Leuk Est Negative Normal Negative [facility] ([place]) Comment on above: Performed By: #### P REGU, UA #### [place] [id number] UA Nitrite Negative Normal Negative [facility] ([place]) Comment on above: Performed By: #### P REGU, UA #### [address] [address] UA pH 6.0 Normal 5.0 - 8.0 [facility] ([place]) Comment on above: Performed By: #### P REGU, UA #### [place] [id number] UA Protein Negative Normal Negative [facility] ([place]) Comment on above: Performed By: #### P REGU, UA #### [place] [address] UA Spec Grav 1.010 Abnormal 1.015-1.025 [facility] ([place]) Comment on above: Performed By: #### P REGU, UA #### [place] [address] [place], [place] [address] UA Specimen Type Clean Catch Normal [facility] ([place]) Comment on above: Performed By: #### P REGU, UA #### [place] [address] [place], [place] [address] UA Urobilinogen 0.2 E.U./dL Normal 0.2-1.0 [facility] ([place]) Comment on above: Performed By: #### P REGU, UA #### [place] [address] [place], [place] [address] Urobilinogen (U) [Mass/Vol] Negative Normal Negative [facility] ([place]) Comment on above: Performed By: #### P REGU, UA #### [address] [address] Bact Vag Amplificationon Bact Vag Amplification Negative Normal Negative for bacterial vaginosis [facility] Comment on above: Performed By: #### B VAMP #### [facility] [address] [place], [place] [address] CNOVon 09-22-2021 CNOV Office Visit ([facility] ) ANYI JENKINS ([id number]) 2000 F Date Time Provider Department 09/22/21 6:45 PM MINH DURAND [facility] During your visit today, we recorded the following information about you: Temperature Pulse Respiration Blood pressure 98.2 degrees 62/minute 16/minute 110/82 Weight 56.6 kg Minh Durand APRN.BENCH PRESS OPERATOR 09/22/2021 7:11 PM Signed Subjective HPI A nontoxic appearing female presents to urgent care with chief complaint of possible UTI. Duration of symptoms 4 days. Associated symptoms dysuria, frequency, and urgency. Patient has history of UTIs in past with similar signs and symptoms. Patient denies the use of any [id number] medications or home remedies for symptom management. Patient states pain is a 3/10. Patient denies any fevers, flank pain, abdominal pain, nausea, vomiting, vaginal discharge, chance of STDs, chance of , or urological abnormalities. Past medical history prescription medication use allergies reviewed. .Patient presents with: UTI: low back pain, pain with urination No past medical history on file. No past surgical history on file. ALLERGIES Amoxicillin MEDICATIONS benzonatate (TESSALON PERLE) 100 mg capsule Take 2 capsules by mouth three times daily as needed. ondansetron orally disintegrating (ZOFRAN ODT) 4 mg disintegrating tablet Take 1 tablet by mouth every 6 hours as needed for Nausea/Vomiting. albuterol HFA (PROAIR HFA) 90 mcg/actuation inhaler Inhale 2 Puffs as instructed every 4 hours as needed. No family history on file. Social History Tobacco Use - Smoking status: Never Smoker - Smokeless tobacco: Never Used Substance Use Topics - Alcohol use: Not on file - Drug use: Not on file BP 110/82 Pulse 62 Temp 36.8 ?C (98.2 ?F) Resp 16 Wt 56.6 kg (124 lb 12.8 oz) LMP 02/27/2016 SpO2 98% Review of Systems Constitutional: Negative for chills, fever and malaise/fatigue. HENT: Negative for congestion, ear discharge, ear pain, sinus pain and sore throat. Eyes: Negative for blurred vision, pain, discharge and redness. Respiratory: Negative for cough, hemoptysis, sputum production, shortness of breath, wheezing and stridor. Cardiovascular: Negative for chest pain. Gastrointestinal: Negative for abdominal pain, diarrhea, nausea and vomiting. Genitourinary: Positive for dysuria, frequency and urgency. Negative for flank pain and hematuria. Musculoskeletal: Negative for myalgias. Skin: Negative for itching and rash. Neurological: Negative for dizziness and headaches. Objective Physical Exam Constitutional: General: She is not in acute distress. Appearance: She is not diaphoretic. HENT: Head: Normocephalic. Mouth/Throat: Mouth: Mucous membranes are moist. Pharynx: Oropharynx is clear. No oropharyngeal exudate or posterior oropharyngeal erythema. Eyes: Conjunctiva/sclera: Conjunctivae normal. Pupils: Pupils are equal, round, and reactive to light. Cardiovascular: Rate and Rhythm: Normal rate and regular rhythm. Heart sounds: Normal heart sounds. Pulmonary: Effort: Pulmonary effort is normal. No tachypnea, accessory muscle usage or respiratory distress. Breath sounds: Normal breath sounds. No stridor. Abdominal: General: Bowel sounds are normal. Palpations: Abdomen is soft. Tenderness: There is no abdominal tenderness. There is no right CVA tenderness or left CVA tenderness. Musculoskeletal: Cervical back: Normal range of motion and neck supple. No rigidity or tenderness. Lymphadenopathy: Cervical: No cervical adenopathy. Skin: General: Skin is warm and dry. Neurological: Mental Status: She is alert and oriented to person, place, and time. ASSESSMENT/PLAN: 1. Pain with urination - ICD9: 788.1, ICD10: R30.9 - UA DIP, URINE (POC) - URINE CULTURE - KAROLINE / TRICHOMONAS AMPLIFICATION - BACTERIAL VAGINOSIS AMPLIFICATION Urine negative. Will not treat with antibiotics at this time. Urine culture pending. Will treat accordingly. Vaginal swabs obtained by patient. We will treat accordingly when reviewed. Patient was educated on supportive therapies. Patient will follow up with MEDICAL ASSISTANT in 2 to 3 days for reevaluation. Patient was instructed to immediately proceed to emergency room for any new, worsening, or symptoms lasting longer than anticipated. The patient's clinical presentation is otherwise unremarkable at this time. Based on exam and clinical finding, the patient is stable for discharge. Plan of care was discussed with patient. Patient verbalizes understanding and agrees to plan of care. This note was generated using Press-sense software. It may contain errors in wording, punctuation, or spelling. Minh Durand, BLAIR.BENCH PRESS OPERATOR Referring Provider: SELF [[id number]] Allergies As of Date: 09/22/2021 Noted Allergy Reaction AMOXICILLIN 02/12/2013 2 - Rash Date Reviewe (more content not included)... Normal [facility] Karoline Trich Amplon 022 Karoline glabrata RNA Negative Normal Negative [facility] Comment on above: Performed By: #### C MTV #### [facility] [address] [place] [address] Karoline sp group RNA Negative Normal Negative [facility] Comment on above: Performed By: #### C VTV #### [place] [id number] [place] [address] Trichomonas RNA Negative Normal [facility] Comment on above: Performed By: #### C VTV #### [place] [id number] [place] [address] Urine Cultureon 09-22-2021 Bacteria identified Cx Nom (U) Sp. Request/Comment: - Specimen received in preservative Culture Result - 10,000 - <50,000 CFU/ml Normal urogenital mathew Normal [facility] Comment on above: Performed By: #### U RCUL #### [facility] [address] [place] [address] CNOVon 06-17-2021 [facility] ANYI JENKINS ([id number]) 2000 F Date Time Provider Department 06/17/21 4:45 PM MINH DURAND [facility] During your visit today, we recorded the following information about you: Temperature Pulse Respiration Blood pressure 99 degrees 67/minute 16/minute 108/82 Weight 56.5 kg Minh Durand APRN.BENCH PRESS OPERATOR 06/18/2021 3:38 PM Signed Subjective HPI Nontoxic-appearing female presents to urgent care chief complaint abdominal pain. Duration of symptoms 1 week. Associated symptoms nausea vomiting abdominal pain fatigue bilateral lower back pain. Denies any known sick contacts. States she is feeling better than she did previously. Denies any significant discomfort currently. Denies any recent vomiting. There is no blood in vomit. No OTC medication use today. Denies any fever body aches chills cough chest pain shortness of breath pleuritic pain lateral anesthesia incontinence change in bowel or bladder habits. Past medical history prescription medication use allergies reviewed. .Patient presents with: Abdominal Pain: vomiting, fatigue, low back pain x1 week History reviewed. No pertinent past medical history. History reviewed. No pertinent surgical history. ALLERGIES Amoxicillin MEDICATIONS benzonatate (TESSALON PERLE) 100 mg capsule Take 2 capsules by mouth three times daily as needed. ondansetron orally disintegrating (ZOFRAN ODT) 4 mg disintegrating tablet Take 1 tablet by mouth every 6 hours as needed for Nausea/Vomiting. albuterol HFA (PROAIR HFA) 90 mcg/actuation inhaler Inhale 2 Puffs as instructed every 4 hours as needed. History reviewed. No pertinent family history. Social History Tobacco Use - Smoking status: Never Smoker - Smokeless tobacco: Never Used Substance Use Topics - Alcohol use: Not on file - Drug use: Not on file BP 108/82 Pulse 67 Temp 37.2 ?C (99 ?F) Resp 16 Wt 56.5 kg (124 lb 9.6 oz) LMP 02/27/2016 SpO2 99% Review of Systems Constitutional: Negative for chills, fever and malaise/fatigue. HENT: Negative for congestion, ear discharge, ear pain, sinus pain and sore throat. Eyes: Negative for blurred vision, pain, discharge and redness. Respiratory: Negative for cough, hemoptysis, sputum production, shortness of breath, wheezing and stridor. Cardiovascular: Negative for chest pain. Gastrointestinal: Positive for abdominal pain, nausea and vomiting. Negative for diarrhea. Genitourinary: Negative for dysuria, flank pain, frequency, hematuria and urgency. Musculoskeletal: Negative for myalgias. Skin: Negative for itching and rash. Neurological: Negative for dizziness and headaches. Objective Physical Exam Constitutional: General: She is not in acute distress. Appearance: She is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 JOSUE 03/05/2020 15:42 Technologist: YADI [facility] XR Pelvis 1-2 Viewson 2019 XR Pelvis 1 or 2 views EXAM: XR Pelvis 1-2 Views, XR Chest 1 View. DATE OF EXAM: 03/05/2020 2:43 PM. HISTORY: Trauma. COMPARISON: None. FINDINGS: Chest: Cardiomediastinal contours are within normal limits. Lungs are clear. Lung volumes normal. No pneumothorax or pleural effusion. Osseous structures appear intact. Pelvis: IUD projects over the pelvis. No acute fracture or dislocation. Hip joints and sacroiliac joints appear normal. Visualized bowel gas pattern is unremarkable. IMPRESSION: Chest: Negative for traumatic abnormality. Pelvis: Negative for traumatic abnormality. IUD in place. [place] thanks you for the opportunity to care for your patient. Workstation ID: [id number] - [id number] FINAL REPORT Dictated By: Amber Alvarez MD 03/05/2020 14:52 Assigned Physician: Amber Alvarez MD Reviewed and Electronically Signed By: Amber Alvarez MD 03/05/2020 14:54 Transcribed by: JOSUE 03/05/2020 14:52 Technologist: ,YADI [facility] C-Reactive Protein ([id number])Or dered By: Community Relations Specialist on 12-12-2019 CRP [Mass/Vol] 1 mg/L Normal 0-10 [facility] Work Phone: Comment on above: PATIENT NOT FASTINGP ERFORMED BY: PRIYANKA [facility] Exbqem09[address] RoadDublin [place] [id number] CALCIFEDIOL ([id number])Ordered B y: Community Relations Specialist on 12-12-2019 25-Hydroxyvitamin D2+25-Hydroxyvitami n D3 [Mass/Vol] 23.4 ng/mL Abnormal 30.0-100.0 [facility] Work Phone: Comment on above: Vitamin D deficiency has been defined by the [place] of[place] and an Endocrine Society practice guideline as alevel of serum 25-OH vitamin D less than 20 ng/mL (1,2).The Endocrine Society went on to further define vitamin Dinsufficiency as a level between 21 and 29 ng/mL (2).1. IOM ([place] of [employer]). 2010. Dietary reference intakes for calcium and D. [place]: The National Academies Press.2. Hailey MF, Ghanshyam NC, Nakul DOWNING, et al. Evaluation, treatment, and prevention of vitamin D deficiency: an Endocrine Society clinical practice guideline. JCEM. 2010; 96(7):1911-30. PATIENT NOT FASTINGP ERFORMED BY: PRIYANKA [facility] Eouptv81[address] RoadDublin [place] [id number]; REVIEW AT APPT CBC, Platelets & Auto Diff ( [id number])Ordered By: Community Relations Specialist on 12-12-2019 Basophils (Bld) [#/Vol] 0.0 {x10E3/uL} Normal 0.0-0.2 [facility] Work Phone: Comment on above: PATIENT NOT FASTINGP ERFORMED BY: CB [facility] Xrczel7[address]Dublin [place] [id number] Basophils (Bld) [#/Vol] 0.0 10*3/uL Normal 0.0-0.2 [facility]; [facility] Work Phone: Comment on above: PATIENT NOT FASTINGP ERFORMED BY: CB [facility] Eklknz4[address]Dublin [place] [id number] Basophils/100 WBC (Bld) 1 % Normal [facility] Work Phone: Comment on above: PATIENT NOT FASTINGP ERFORMED BY: CB [facility] Wagofs65[address]Dublin [place] [id number] Eosinophils (Bld) [#/Vol] 0.1 {x10E3/uL} Normal 0.0-0.4 [facility] Work Phone: Comment on above: PATIENT NOT FASTINGP ERFORMED BY: CB [facility] Dxfxpb4684 [address] RoadDublin [place] [id number] Eosinophils (Bld) [#/Vol] 0.1 10*3/uL Normal 0.0-0.4 [facility]; [facility] Work Phone: Comment on above: PATIENT NOT FASTINGP ERFORMED BY: CB [facility] Uovxbo[address] RoadFormerly [facility]in [place] [id number] Eosinophils/100 WBC (Bld) 2 % Normal [facility] Work Phone: Comment on above: PATIENT NOT FASTINGP ERFORMED BY: CB [facility] Lfwjen[address] [facility]in [place] [id number] Erythrocyte distribution width (RBC) [Ratio] 12.1 % Normal 11.7-15.4 [facility] Work Phone: Comment on above: PATIENT NOT FASTINGP ERFORMED BY: CB [facility] Msrolj8[address] RoadFormerly [facility]in [place] [id number] Hematocrit (Bld) [Volume fraction] 43.2 % Normal 34.0-46.6 [facility] Work Phone: Comment on above: PATIENT NOT FASTINGP ERFORMED BY: CB [facility] Lmhxnv[address] RoadFormerly [facility]in [place] [id number] Hemoglobin (Bld) [Mass/Vol] 13.9 g/dL Normal 11.1-15.9 [facility] Work Phone: Comment on above: PATIENT NOT FASTINGP ERFORMED BY: CB [facility] Ljclfi3790 [address] RoadDublin [place] [id number] Immature granulocytes (Bld) [#/Vol] 0.0 {x10E3/uL} Normal 0.0-0.1 [facility] Work Phone: Comment on above: PATIENT NOT FASTINGP ERFORMED BY: CB [facility] Sdcmcm7914 [address] RoadDublin [place] [id number] Immature granulocytes (Bld) [#/Vol] 0.0 10*3/uL Normal 0.0-0.1 [facility]; [facility] Work Phone: Comment on above: PATIENT NOT FASTINGP ERFORMED BY: CB [facility] Uwclhx27[address] RoadDublin [place] [id number] Immature granulocytes/100 WBC (Bld) 0 % Normal [facility] Work Phone: Comment on above: PATIENT NOT FASTINGP ERFORMED BY: CB [facility] Xnxsoz9039 [address] RoadD[address] [place] [id number] Lymphocytes (Bld) [#/Vol] 2.6 {x10E3/uL} Normal 0.7-3.1 [facility] Work Phone: Comment on above: PATIENT NOT FASTINGP ERFORMED BY: CB [facility] Bihuvl6036 [address] RoadDublin [place] [id number] Lymphocytes (Bld) [#/Vol] 2.6 10*3/uL Normal 0.7-3.1 [facility]; [facility] Work Phone: Comment on above: PATIENT NOT FASTINGP ERFORMED BY: CB [facility] Sotlsq81[address] [place] [id number] Lymphocytes/100 WBC (Bld) 42 % Normal [facility] Work Phone: Comment on above: PATIENT NOT FASTINGP ERFORMED BY: CB [facility] Snfgbh110[address] [place] [id number] MCH (RBC) [Entitic mass] 32.7 pg Normal 26.6-33.0 [facility] Work Phone: Comment on above: PATIENT NOT FASTINGP ERFORMED BY: CB [facility] Rfwhwu3026 [address] RoadD[address] [place] [id number] MCHC (RBC) [Mass/Vol] 32.2 g/dL Normal 31.5-35.7 [facility] Work Phone: Comment on above: PATIENT NOT FASTINGP ERFORMED BY: CB [facility] Rhrkko7[address] RoadDublin [place] [id number] MCV (RBC) [Entitic vol] 102 fL Abnormal 79-97 [facility] Work Phone: Comment on above: PATIENT NOT FASTINGP ERFORMED BY: CB [facility] Xunotq0466 [address] RoadDublin [place] [id number] Monocytes (Bld) [#/Vol] 0.4 {x10E3/uL} Normal 0.1-0.9 [facility] Work Phone: Comment on above: PATIENT NOT FASTINGP ERFORMED BY: CB [facility] Egcylo3952 [address] RoadD[address] [place] [id number] Monocytes (Bld) [#/Vol] 0.4 10*3/uL Normal 0.1-0.9 [facility]; [facility] Work Phone: Comment on above: PATIENT NOT FASTINGP ERFORMED BY: CB [facility] Swboht86[address] [place] [id number] Monocytes/100 WBC (Bld) 7 % Normal [facility] Work Phone: Comment on above: PATIENT NOT FASTINGP ERFORMED BY: CB [facility] Snzdti7097 [address] RoadDublin [place] [id number] Neutrophils (Bld) [#/Vol] 3.0 {x10E3/uL} Normal 1.4-7.0 [facility] Work Phone: Comment on above: PATIENT NOT FASTINGP ERFORMED BY: CB [facility] Ohafvw5362 [address] RoadD[address] [place] [id number] Neutrophils (Bld) [#/Vol] 3.0 10*3/uL Normal 1.4-7.0 [facility]; [facility] Work Phone: Comment on above: PATIENT NOT FASTINGP ERFORMED BY: CB [facility] Ujdpdy1463 [address] RoadD[address] [place] [id number] Neutrophils/100 WBC (Bld) 48 % Normal [facility] Work Phone: Comment on above: PATIENT NOT FASTINGP ERFORMED BY: CB [facility] Bkfvoj0676 [address] [place] [id number] Platelets (Bld) [#/Vol] 371 {x10E3/uL} Normal 150-450 [facility] Work Phone: Comment on above: PATIENT NOT FASTINGP ERFORMED BY: CB [facility] Xpwrrg3246 [address] RoadD[address] [place] [id number] Platelets (Bld) [#/Vol] 371 10*3/uL Normal 150-450 [facility]; [facility] Work Phone: Comment on above: PATIENT NOT FASTINGP ERFORMED BY: CB [facility] Dnhjix7502 [address] RoadD[address] [place] [id number] RBC (Bld) [#/Vol] 4.25 {x10E6/uL} Normal 3.77-5.28 [facility] Work Phone: Comment on above: PATIENT NOT FASTINGP ERFORMED BY: CB [facility] Pqrpsf1359 [address] RoadD[address] [place] [id number] RBC (Bld) [#/Vol] 4.25 10*6/uL Normal 3.77-5.28 [facility]; [facility] Work Phone: Comment on above: PATIENT NOT FASTINGP ERFORMED BY: CB [facility] Frofzf5433 [address] RoadDublin [place] [id number] WBC (Bld) [#/Vol] 6.2 {x10E3/uL} Normal 3.4-10.8 [facility] Internal [facility] Work Phone: Comment on above: PATIENT NOT FASTINGP ERFORMED BY: CB [facility] Xbvyxz7692 [address] RoadDublin [place] [id number] WBC (Bld) [#/Vol] 6.2 10*3/uL Normal 3.4-10.8 [facility]; [facility] Work Phone: Comment on above: PATIENT NOT FASTINGP ERFORMED BY: CB [facility] Tmjkov9323 [address] RoadD[address] [place] [id number] Metabolic Panel, Comprehensi ve ([id number])Ordered By: Community Relations Specialist on 12-12-2019 Albumin [Mass/Vol] 5.0 g/dL Normal 3.9-5.0 [facility] Work Phone: Comment on above: PATIENT NOT FASTINGP ERFORMED BY: CB [facility] Yoxoba4953 [address] RoadD[address] [place] [id number] Albumin/Globulin [Mass ratio] 2.2 {ratio} Normal 1.2-2.2 [facility] Work Phone: Comment on above: PATIENT NOT FASTINGP ERFORMED BY: CB [facility] Rmrkir7037 [address] RoadDublin [place] [id number] ALP [Catalytic activity/Vol] 54 [iU]/L Normal 39-117 [facility] Work Phone: Comment on above: PATIENT NOT FASTINGP ERFORMED BY: PRIYANKA [facility] Jcpewq1380 [address] RoadD[address] [place] [id number] ALP [Catalytic activity/Vol] 54 U/L Normal 39-117 [facility]; [facility] Work Phone: Comment on above: PATIENT NOT FASTINGP ERFORMED BY: PRIYANKA [facility] Dglvzu4785 [address] RoadD[address] [place] [id number] ALT [Catalytic activity/Vol] 13 [iU]/L Normal 0-32 [facility] Work Phone: Comment on above: PATIENT NOT FASTINGP ERFORMED BY: CB [facility] Oiwzlk5313 [address] RoadD[address] [place] [id number] ALT [Catalytic activity/Vol] 13 U/L Normal 0-32 [facility]; [facility] Work Phone: Comment on above: PATIENT NOT FASTINGP ERFORMED BY: CB [facility] Edibdy5854 [address] RoadD[address] [place] [id number] AST [Catalytic activity/Vol] 13 [iU]/L Normal 0-40 [facility] Work Phone: Comment on above: PATIENT NOT FASTINGP ERFORMED BY: CB [facility] Eoranr2926 [address] [place] [id number] AST [Catalytic activity/Vol] 13 U/L Normal 0-40 [facility]; [facility] Work Phone: Comment on above: PATIENT NOT FASTINGP ERFORMED BY: CB [facility] Oalxct7754 [address] [place] [id number] Bilirubin [Mass/Vol] 0.4 mg/dL Normal 0.0-1.2 [facility] Internal Medicine Work Phone: Comment on above: PATIENT NOT FASTINGP ERFORMED BY: CB [facility] Lttbui5560 [address] RoadD[address] [place] [id number] Calcium [Mass/Vol] 9.4 mg/dL Normal 8.7-10.2 [facility] Work Phone: Comment on above: PATIENT NOT FASTINGP ERFORMED BY: CB [facility] Wjwqlt0451 [address] RoadD[address] [place] [id number] Chloride [Moles/Vol] 102 mmol/L Normal 96-106 [facility] Work Phone: Comment on above: PATIENT NOT FASTINGP ERFORMED BY: CB [facility] Bvybsz2852 [address] [place] [id number] CO2 [Moles/Vol] 22 mmol/L Normal 20-29 [facility] Internal Medicine Work Phone: Comment on above: PATIENT NOT FASTINGP ERFORMED BY: CB [facility] Zzurbi8380 [address] [place] [id number] Creatinine [Mass/Vol] 0.74 mg/dL Normal 0.57-1.00 [facility] Internal Medicine Work Phone: Comment on above: PATIENT NOT FASTINGP ERFORMED BY: CB [facility] Ccfqtr2012 [address] [place] [id number] GFR/1.73 sq M predicted among blacks CKD-EPI (S/P/Bld) [Vol rate/Area] 134 mL/min/1.73 Normal [facility] Work Phone: Comment on above: PATIENT NOT FASTINGP ERFORMED BY: CB [facility] Qmjlgf3437 [address] RoadD[address] [place] [id number] GFR/1.73 sq M predicted among non-blacks CKD-EPI (S/P/Bld) [Vol rate/Area] 116 mL/min/1.73 Normal [facility] Work Phone: Comment on above: PATIENT NOT FASTINGP ERFORMED BY: CB [facility] Ybnejg7875 [address] RoadD[address] [place] [id number] Globulin (S) [Mass/Vol] 2.3 g/dL Normal 1.5-4.5 [facility] Work Phone: Comment on above: PATIENT NOT FASTINGP ERFORMED BY: CB [facility] Rfcyii0548 [address] RoadD[address] [place] [id number] Glucose [Mass/Vol] 89 mg/dL Normal 65-99 [facility] Internal Medicine Work Phone: Comment on above: PATIENT NOT FASTINGP ERFORMED BY: PRIYANKA [facility] Ubdekm3815 [address] [place] [id number] Potassium [Moles/Vol] 4.3 mmol/L Normal 3.5-5.2 [facility] Work Phone: Comment on above: PATIENT NOT FASTINGP ERFORMED BY: CB [facility] Otjguz3496 [address] [place] [id number] Protein [Mass/Vol] 7.3 g/dL Normal 6.0-8.5 [facility] Work Phone: Comment on above: PATIENT NOT FASTINGP ERFORMED BY: CB [facility] Qvzluk0098 [address] [place] [id number] Sodium [Moles/Vol] 139 mmol/L Normal 134-144 [facility] Internal [facility] Work Phone: Comment on above: PATIENT NOT FASTINGP ERFORMED BY: CB [facility] Xbtrqu1227 [address] [place] [id number] Urea nitrogen [Mass/Vol] 10 mg/dL Normal 6-20 [facility] Work Phone: Comment on above: PATIENT NOT FASTINGP ERFORMED BY: CB [facility] Uulvpu8551 [address] [place] [id number] Urea nitrogen/Creatinine [Mass ratio] 14 mg/mg Normal 9-23 [facility] Work Phone: Comment on above: PATIENT NOT FASTINGP ERFORMED BY: CB [facility] Zqfilw1679 [address] [place] [id number] RPR (RAPID PLASMA REAGIN) ([id number])Ordered By: Community Relations Specialist on 12-12-2019 Reagin Ab RPR Ql (S) Non Reactive Normal [facility] Work Phone: Comment on above: PATIENT NOT FASTINGP ERFORMED BY: CB [facility] Yesjcc5801 [address] [place] [id number] Reagin Ab RPR Ql (S) Non-Reactive Normal [facility]; [facility] Work Phone: Comment on above: PATIENT NOT FASTINGP ERFORMED BY: CB [facility] Hdavjw6757 [address] RoadDublin [place] [id number] SED RATE ERYTHROCYTE ([id number]) Ordered By: Community Relations Specialist on 12-12-2019 ESR (Bld) [Velocity] 2 mm/h Normal 0-32 [facility] Work Phone: Comment on above: PATIENT NOT FASTINGP ERFORMED BY: CB [facility] Zmnaeg5378 [address] RoadD[address] [place] [id number] TSH (THYROID STIMULATING HOR NATY) ([id number])Ordered By: Community Relations Specialist on 12-12-2019 TSH Qn 1.440 {uIU/mL} Normal 0.450-4.500 [facility] Internal [facility] Work Phone: Comment on above: PATIENT NOT FASTINGP ERFORMED BY: [facility] Hvoxtv1581 [address] RoadD[address] [place] [id number]; NOTHING URGENT __ REVIEW ALL AT NOVEMBER APPT Progress Noteon 11-21-2018 Systems Integration Manager Authentication Interface Message Text Patient ID: Anyi Jenkins is a 18 y.o. female. Her chief complaint(s) include: Abdominal Pain (bloating, has had pain since Tuesday) Assessment 1. Bilateral back pain, unspecified back location, unspecified chronicity 2. Urinary tract infection without hematuria, site unspecified 3. Constipation, unspecified constipation type Plan Anyi was seen today for abdominal pain. Diagnoses and all orders for this visit: Bilateral back pain, unspecified back location, unspecified chronicity - POCT urinalysis dipstick Urinary tract infection without hematuria, site unspecified - Urine culture (Clinic Collect) - Cephalexin (KEFLEX) 500 MG tablet; Take 2 Tabs (1,000 mg) by mouth 2 times daily for 10 days Constipation, unspecified constipation type Suggested Miralax 1 cap q day Return if symptoms worsen or fail to improve. Subjective HPI Comments: SA started 5 days ago, got worse the next day, but then improved some Tuesday Feels boated. Reports firmer stools last week, today looser thin stools. Abdominal Pain The onset has been acute. The duration has been 5 days. The course is improving. The location of the pain is in the right upper quadrant and entire abdomen. The pain radiates to the back, left flank and right flank. Associated symptoms include bloating and nausea. Associated symptoms do not include fever. (Early satiation ). The patient's diet consists of adequate fluid intake and a well balanced diet. She cannot remember last (has an implant, no menses) menstrual period. The patient has a significant other. Typically, she uses implant as her current contraceptive method. There have been no previous evaluations.. She is unaccompanied. Primary Care Review of Systems Objective Vital Signs 11/21/18 1051 Temp: 36.5 C (97.7 F) TempSrc: Temporal Weight: 61.1 kg There is no height or weight on file to calculate BMI. Physical Exam Constitutional: She appears well. She is active. No distress. HENT: Head: Atraumatic. Right Ear: Tympanic membrane normal. Left Ear: Tympanic membrane normal. Mouth/Throat: Mucous membranes are moist. Eyes: Conjunctivae are normal. Cardiovascular: Normal rate and regular rhythm. Heart murmur not heard. Pulmonary/Chest: Breath sounds normal. There is normal air entry. Abdominal: Soft. Bowel sounds are decreased. There is tenderness in the suprapubic area and left upper quadrant. There is right sided CVA tenderness and left sided CVA tenderness. Neurological: She is alert. Vitals reviewed: Temperature 36.5 C (97.7 F), temperature source Temporal, weight 61.1 kg, last menstrual period 09/01/2018. Last Result POCT urinalysis dipstick Collection Time: 11/21/18 11:31 AM Result Value Ref Range POCT, Leukocytes, Urine 2+ (Moderate) (A) Negative POCT Nitrite, Urine Negative Negative POCT Protein, Urine Negative Negative - Trace mg/dl POCT Urine pH 7.0 5.0 - 7.5 pH POCT Blood, Urine Moderate Non-Hemolyzed (A) Negative POCT Urine Specific Dovray 1.010 (A) 1.030 - 1.035 POCT Ketones, Urine Negative Negative mg/dl POCT Glucose, Urine Negative Negative mg/dl Normal [facility] Urine Cultureon 11-21-2018 Bacteria identified Cx Nom (U) Is this specimen being sent to an external lab?->No Urine Culture: Beta hemolytic Strep Group B Source: URNBL Collected: 11/21/18 11:42 Site: Urine Received : 11/21/18 23:15 Urine Culture FINAL 11/23/18 08:54 10,000 - 50,000 CFU/ml of Normal Skin/urogenital mathew present <10,000 CFU/ml Beta hemolytic Strep Group B For further workup, call Microbiology within three days. Normal [facility] Comment on above: Performed By: #### U RINE #### [place] [address] Bordetella pertussis/paraper tussis PCRon 09-15-2018 Bordetella pertussis/parapertu ssis PCR Is this specimen being sent to an external lab?->No Bordetella pertussis/parapertussi s PCR: - Source: NPH Collected: 09/15/18 11:49 Site: Nose Received : 09/15/18 16:41 Bordetella pertussis/parapertussi s PFINAL 09/16/18 12:48 - NEGATIVE: B. pertussis target nucleic acid is NOT DETECTED. NEGATIVE: B. parapertussis target nuc. acid is NOT DETECTED. - Method: Real-time polymerase chain reaction (PCR) based qualitative in-vitro diagnostic test for the direct detection and identification of the promoter toxin gene (ptxA) for Bordetella pertussis and the insertion sequence [id number] of Bordetella parapertussis on the MARY analyzer. Normal [facility] Comment on above: Performed By: #### B PPT #### [place] [address] Progress Noteon 09-15-2018 Systems Integration Manager Authentication Interface Message Text Patient ID: Anyi Jenkins is a 18 y.o. female. Her chief complaint(s) include: Upper Respiratory Infection ( diagnosed with bronchitis 2 weeks ago, not better) Assessment 1. Cough Plan Anyi was seen today for upper respiratory infection. Diagnoses and all orders for this visit: Cough - Pertussis PCR (Clinic Collect) - albuterol 108 (90 Base) MCG/ACT inhaler; Inhale 2 Puffs into the lungs every 4 hours as needed for Wheezing or Cough Use with spacer. The CXR was neg. Pertussis test pending. Will try the alb MDI, q4h, over the weekend. No follow-ups on file. Subjective HPI Comments: Here for cough for a month. Has EIA. Has not tried an MDI. Took Zmax, did not help much; 2 weeks ago. She is unaccompanied. Upper Respiratory Infection The duration has been 1 month. The patient's symptoms have included fatigue (tired sometimes), congestion (lots of D/C), rhinorrhea, cough (bad; day and night; ; prod), nausea and vomiting (from the cougha few times). The patient's symptoms have included no fever. (Dizzy with spells of cough; sweating alot). The patient has been exposed to no sick contacts Primary Care Review of Systems Objective Vital Signs 09/15/18 1057 Temp: 36.6 C (97.8 F) TempSrc: Temporal Weight: 58.7 kg There is no height or weight on file to calculate BMI. Physical Exam Constitutional: She is active. No distress. HENT: Head: Atraumatic. Right Ear: Tympanic membrane normal. Left Ear: Tympanic membrane normal. Nose: No nasal discharge. Mouth/Throat: Mucous membranes are moist. No pharynx erythema. Oropharynx is clear. Eyes: Conjunctivae are normal. Neck: No neck adenopathy. Cardiovascular: Normal rate and regular rhythm. Heart murmur not heard. Pulmonary/Chest: There is normal air entry. No respiratory distress. She has no wheezes. She has rhonchi (mild, on the right side, fromt and back, ). She has no rales. Exhibits no retraction. occ coughing in the office Neurological: She is alert. Normal [facility] Progress Noteon 08-31-2018 Systems Integration Manager Authentication Interface Message Text Patient ID: Anyi Jenkins is a 18 y.o. female. Her chief complaint(s) include: Cold Symptoms (runny nose, congestion, cough, fatique, fevers off & on, abdominal pain x 2 weeks) Assessment 1. Bronchitis Plan Anyi was seen today for cold symptoms. Diagnoses and all orders for this visit: Bronchitis - azithromycin (ZITHROMAX) 250 MG tablet; Take 2 tabs (500 mg) by mouth day 1, then 1 tab (250 mg) days 2-5 No follow-ups on file. Subjective HPI Comments: Has been on tessalon, and not helping much. She is unaccompanied. Cold Symptoms The onset has been gradual. The duration has been 2 weeks. The patient's symptoms have included malaise, fever (low grade, off and on), congestion, rhinorrhea, sore throat (for a few days), cough (more in the evening; waking her too; productive), headaches (mild), nausea and diarrhea (mild). (Neck pain for a few days). The patient has been exposed to sick contacts with similar symptoms at home (Several members) Primary Care Review of Systems Objective Vital Signs 08/31/18 1056 Temp: 36.4 C (97.5 F) TempSrc: Temporal Weight: 61.4 kg There is no height or weight on file to calculate BMI. Physical Exam Constitutional: She appears well. She is active. No distress. HENT: Head: Atraumatic. Right Ear: Tympanic membrane normal. Left Ear: Tympanic membrane normal. Nose: No nasal discharge. Mouth/Throat: Mucous membranes are moist. No pharynx erythema. Eyes: Conjunctivae are normal. Neck: No neck adenopathy. Cardiovascular: Normal rate and regular rhythm. Heart murmur not heard. Pulmonary/Chest: Breath sounds normal. There is normal air entry. She has no wheezes. She has no rhonchi. She has no rales. Harsh productive cough several times in the office Neurological: She is alert. Normal [facility] Vital Signs Date Time Vital Sign Value Performing Clinician Facility 12-21-2022 10:17040 Body temperature 98.01 [degF] Krislyn Aberegg PA Work Phone: [facility] 12-21-2022 10:170400 Body weight 57.06 kg Krislyn Aberegg PA Work Phone: [facility] 12-21-2022 10:17-0400 Diastolic blood pressure 74 mm[Hg] Krislyn Aberegg PA Work Phone: [facility] 12-21-2022 10:170400 Heart rate 70 /min Krislyn Aberegg PA Work Phone: [facility] 12-21-2022 10:17040 Respiratory rate 18 /min Krislyn Aberegg PA Work Phone: [facility] 12-21-2022 10:170400 SaO2% (BldA) [Mass fraction] 98 % Krislyn Aberegg PA Work Phone: [facility] 12-21-2022 10:170400 Systolic blood pressure 104 mm[Hg] Krislyn Aberegg PA Work Phone: [facility] 11-01-2022 11:12-0400 Body height 153.03 cm Cassidy Slarb [facility]AL [facility] Work Phone: 11-01-2022 11:12-0400 Body mass index (BMI) [Ratio] 23.82 kg/m2 Cassidy Slarb [employer] PATTERN[employer] [facility] Work Phone: 11-01-2022 11:12-0400 Body surface area Derived from formula 1.52 m2 Cassidy Slarb [employer]AL PATTERNMA[employer] [facility] Work Phone: 11-01-2022 11:12-0400 Body temperature 98.3 [degF] Cassidy Slarb [employer] PATTERN[employer] [facility] Work Phone: Comment on above: Method: Temporal 11-01-2022 11:12-0400 Body weight 55.79 kg Cassidy Slarb [employer] PAT[employer] [facility] Work Phone: 11-01-2022 11:12-0400 Diastolic blood pressure 68 mm[Hg] Cassidy Slarb [employer]AL PATTERNMA[employer] [facility] Work Phone: Comment on above: Patient Position: Sitting; Cuff Location : Left Arm; Cuff Size: Standard 11-01-2022 11:12-0400 Heart rate 65 /min Cassidy Slarb [employer]AL PATTERN[employer] [facility] Work Phone: Comment on above: Pattern: Regular 11-01-2022 11:12-0400 Respiratory rate 17 /min Cassidy Slarb [employer] PATTERN[employer] [facility] Work Phone: Comment on above: Pattern: Unlabored 11-01-2022 11:12-0400 SaO2% (BldA) [Mass fraction] 99 % Cassidy Slarb [employer]AL PATTERN[employer] [facility] Work Phone: Comment on above: Room air 11-01-2022 11:12-0400 Systolic blood pressure 122 mm[Hg] Cassidy Slarb [employer]AL PATTERNMA[employer] [facility] Work Phone: Comment on above: Patient Position: Sitting; Cuff Location : Left Arm; Cuff Size: Standard 09-28-2022 11:17-0500 Body height 153.03 cm Cassidy Slarb [employer]AL PATTERN[employer] [facility] Work Phone: 09-28-2022 11:17-0500 Body mass index (BMI) [Ratio] 23.44 kg/m2 Cassidy Slarb [employer] PATTERN[employer] [facility] Work Phone: 09-28-2022 11:17-0500 Body surface area Derived from formula 1.51 m2 Cassidy Slarb [employer]AL PATTERN[employer] [facility] Work Phone: 09-28-2022 11:17-0500 Body temperature 98.3 [degF] Cassidy Slarb [employer]AL PATTERNMAK[employer] [facility] Work Phone: Comment on above: Method: Temporal 09-28-2022 11:17-0500 Body weight 54.89 kg Cassidy Slarb [employer]AL PATTERN[employer] [facility] Work Phone: 09-28-2022 11:17-0500 Diastolic blood pressure 62 mm[Hg] Cassidy Slarb [employer]AL PATTERNMAK[employer] [facility] Work Phone: Comment on above: Patient Position: Sitting; Cuff Location : Left Arm; Cuff Size: Standard 09-28-2022 11:17-0500 Heart rate 65 /min Cassidy Slarb [employer]AL PATTERNMAK[employer] [facility] Work Phone: Comment on above: Pattern: Regular 09-28-2022 11:17-0500 Respiratory rate 16 /min Cassidy Slarb [employer]AL PATTERNMAK[employer] [facility] Work Phone: Comment on above: Pattern: Unlabored 09-28-2022 11:17-0500 SaO2% (BldA) [Mass fraction] 99 % Cassidy Slarb [employer]AL PATTERNMAK[employer] [facility] Work Phone: Comment on above: Room air 09-28-2022 11:17-0500 Systolic blood pressure 114 mm[Hg] Cassidy Slarb METAL PATTERNMAK[employer] [facility] Work Phone: Comment on above: Patient Position: Sitting; Cuff Location : Left Arm; Cuff Size: Standard 01-27-2022 09:20-0400 Body height 153.03 cm Cassidy Slarb [employer]AL PATTERNMAK[employer] [facility] Work Phone: 01-27-2022 09:20-0400 Body mass index (BMI) [Ratio] 22.85 kg/m2 Cassidy Slarb [employer]AL PATTERN[employer] [facility] Work Phone: 01-27-2022 09:20-0400 Body surface area Derived from formula 1.5 m2 Cassidy Slarb [employer]AL PATTERNMAK[employer] [facility] Work Phone: 01-27-2022 09:20-0400 Body temperature 97.1 [degF] Cassidy Slarb METAL PATTERNMAK[employer] [facility] Work Phone: 01-27-2022 09:20-0400 Body weight 53.52 kg Cassidy Slarb [employer]AL PATTERNMA[employer] [facility] Work Phone: 01-27-2022 09:20-0400 Diastolic blood pressure 72 mm[Hg] Cassidy Slarb [employer]AL PATTERNMAK[employer] [facility] Work Phone: Comment on above: Patient Position: Sitting; Cuff Location : Left Arm; Cuff Size: Standard 01-27-2022 09:20-0400 Heart rate 71 /min Cassidy Slarb [employer]AL PATTERNMAK[employer] [facility] Work Phone: Comment on above: Pattern: Regular 01-27-2022 09:20-0400 Respiratory rate 16 /min Cassidy Slarb [employer]AL PATTERNMA[employer] [facility] Work Phone: Comment on above: Pattern: Unlabored 01-27-2022 09:20-0400 SaO2% (BldA) [Mass fraction] 99 % Cassidy Slarb [employer]AL PATTERNMAK[employer] [facility] Work Phone: Comment on above: Room air 01-27-2022 09:20-0400 Systolic blood pressure 116 mm[Hg] Cassidy Slarb METAL PATTERNMAK[employer] [facility] Work Phone: Comment on above: Patient Position: Sitting; Cuff Location : Left Arm; Cuff Size: Standard 01-29-2021 14:13-0400 Body height 153.03 cm Casi Birdon DO Work Phone: [facility] Work Phone: 01-29-2021 14:13-0400 Body mass index (BMI) [Ratio] 23.06 kg/m2 Casi Laly DO Work Phone: [facility] Work Phone: 01-29-2021 14:13-0400 Body surface area Derived from formula 1.5 m2 Casi Laly DO Work Phone: [facility] Work Phone: 01-29-2021 14:13-0400 Body temperature 97.3 [degF] Casi Laly DO Work Phone: [facility]; [facility] Work Phone: Comment on above: Method: Infrared 01-29-2021 14:13-0400 Body weight 54 kg Casi Laly DO Work Phone: [facility] Work Phone: 01-29-2021 14:13-0400 Diastolic blood pressure 70 mm[Hg] Casi Laly DO Work Phone: [facility]; [facility] Work Phone: Comment on above: Patient Position: Sitting; Cuff Location : Left Arm; Cuff Size: Standard 01-29-2021 14:13-0400 Heart rate 57 /min Casi Laly DO Work Phone: [facility]; [facility] Work Phone: Comment on above: Pattern: Regular 01-29-2021 14:13-0400 Respiratory rate 18 /min Casi Laly DO Work Phone: [facility]; [facility] Work Phone: Comment on above: Pattern: Unlabored 01-29-2021 14:13-0400 SaO2% (BldA) [Mass fraction] 94 % Casi Laly DO Work Phone: [facility]; [facility] Work Phone: Comment on above: Room air 01-29-2021 14:13-0400 Systolic blood pressure 122 mm[Hg] Casi Laly DO Work Phone: [facility]; [facility] Work Phone: Comment on above: Patient Position: Sitting; Cuff Location : Left Arm; Cuff Size: Standard 03-18-2020 08:20-0400 BMI (Body Mass Index) 26.15 kg/m2 Claire Anhtellonadeen [facility] Work Phone: 03-18-2020 08:20-0400 Body weight 61.25 kg Claire Jeffries [facility] Work Phone: 03-18-2020 08:20-0400 BSA (Body Surface Area) 1.58 m2 Claire Jeffries [facility] Work Phone: 03-18-2020 08:20-0400 Height 153.03 cm Claire Jeffries [facility] Work Phone: 03-14-2020 07:29-0400 BMI (Body Mass Index) 26.15 kg/m2 Nimo Narvaez [facility] Work Phone: 03-14-2020 07:29-0400 Body Temperature 97.1 [degF] Nimo Narvaez CMA [facility] Work Phone: Comment on above: Method: Temporal 03-14-2020 07:29-0400 Body weight 61.25 kg Nimo Narvaez [facility] Work Phone: 03-14-2020 07:29-0400 BP Diastolic 68 mm[Hg] Nimo Narvaez [facility] Work Phone: Comment on above: Patient Position: Sitting; Cuff Location : Left Arm; Cuff Size: Standard 03-14-2020 07:29-0400 BP Systolic 107 mm[Hg] Nimo Narvaez [facility] Work Phone: Comment on above: Patient Position: Sitting; Cuff Location : Left Arm; Cuff Size: Standard 03-14-2020 07:29-0400 BSA (Body Surface Area) 1.58 m2 Nimo Narvaez [facility] Work Phone: 03-14-2020 07:29-0400 Height 153.03 cm Nimo Narvaez [facility] Work Phone: 03-14-2020 07:29-0400 Pulse (Heart Rate) 66 /min Nimo Narvaez CMA Comprehens [facility] Work Phone: Comment on above: Pattern: Regular 03-14-2020 07:29-0400 Pulse Oximetry 99 % Claire Jeffries [facility] Work Phone: Comment on above: Room air 03-14-2020 07:29-0400 Respiratory Rate 16 /min Nimo Narvaez [facility] Work Phone: Comment on above: Pattern: Unlabored 03-14-2020 07:29-0400 SaO2% (BldA) [Mass fraction] 99 % Nimo Narvaez [facility] Work Phone: Comment on above: Room air 12-18-2019 08:42-0400 BMI (Body Mass Index) 26.15 kg/m2 Eber Enriquez LPN [facility] Work Phone: 12-18-2019 08:42-0400 Body Temperature 97.3 [degF] Eber Enriquez LPN [facility] Work Phone: Comment on above: Method: Temporal 12-18-2019 08:42-0400 Body weight 61.25 kg Eber Enriquez LPN [facility] Work Phone: 12-18-2019 08:42-0400 BP Diastolic 82 mm[Hg] Eber Enriquez LPN [facility] Work Phone: Comment on above: Patient Position: Sitting; Cuff Location : Left Arm; Cuff Size: Standard 12-18-2019 08:42-0400 BP Systolic 110 mm[Hg] Eber Enriquez LPN [facility] Work Phone: Comment on above: Patient Position: Sitting; Cuff Location : Left Arm; Cuff Size: Standard 12-18-2019 08:42-0400 BSA (Body Surface Area) 1.58 m2 Eber Enriquez LPN [facility] Work Phone: 12-18-2019 08:42-0400 Height 153.03 cm Eber Enriquez LPN [facility] Work Phone: 12-18-2019 08:42-0400 Pulse (Heart Rate) 73 /min Eber Enriquez LPN [facility] Work Phone: Comment on above: Pattern: Regular 12-18-2019 08:42-0400 Pulse Oximetry 98 % Claire Jeffries [facility] Work Phone: Comment on above: Room air 12-18-2019 08:42-0400 Respiratory Rate 16 /min Eber Enriquez LPN [facility] Work Phone: Comment on above: Pattern: Unlabored 12-18-2019 08:42-0400 SaO2% (BldA) [Mass fraction] 98 % Eber Enriquez LPN [facility] Work Phone: Comment on above: Room air 12-12-2019 09:31-0400 BMI (Body Mass Index) 25.19 kg/m2 Eber Enriquez LPN [facility] Work Phone: 12-12-2019 09:31-0400 Body Temperature 97.6 [degF] Eber Enriquez LPN [facility] Work Phone: Comment on above: Method: Temporal 12-12-2019 09:31-0400 Body weight 58.99 kg Eber Enriquez LPN [facility] Work Phone: 12-12-2019 09:31-0400 BP Diastolic 82 mm[Hg] Eber Enriquez LPN [facility] Work Phone: Comment on above: Patient Position: Sitting; Cuff Location : Left Arm; Cuff Size: Standard 12-12-2019 09:31-0400 BP Systolic 110 mm[Hg] Eber Enriquez LPN [facility] Work Phone: Comment on above: Patient Position: Sitting; Cuff Location : Left Arm; Cuff Size: Standard 12-12-2019 09:31-0400 BSA (Body Surface Area) 1.56 m2 Eber Enriquez LPN [facility] Work Phone: 12-12-2019 09:31-0400 Height 153.03 cm Eber Enriquez LPN [facility] Work Phone: 12-12-2019 09:31-0400 Pulse (Heart Rate) 99 /min Eber Enriquez LPN [facility] Work Phone: Comment on above: Pattern: Regular 12-12-2019 09:31-0400 Pulse Oximetry 98 % Claire Jeffries [facility] Work Phone: Comment on above: Room air 12-12-2019 09:31-0400 Respiratory Rate 16 /min Eber Enriquez LPN [facility] Work Phone: Comment on above: Pattern: Unlabored 12-12-2019 09:31-0400 SaO2% (BldA) [Mass fraction] 98 % Eber Enriquez LPN [facility] Work Phone: Comment on above: Room air Encounters Encounter Date Encounter Type Care Provider Facility Start: 12-21-2022 End: 12-21-2022 Patient encounter procedure Joe STRICKLAND Work Phone: [facility] Comment on above: Acute conjunctivitis of both eyes, unspecified acute conjunctivitis type (Primary Dx) Start: 11-01-2022 ambulatory Radha Stoddard CNP [facility] Start: 11-01-2022 End: 11-08-2022 Office outpatient visit 15 minutes Radha Stoddard CNP Work Phone: [facility] Start: 11-01-2022 Review Radha Stoddard CNP Work Phone: [facility] Start: 10-19-2022 End: 10-19-2022 ambulatory [facility] Start: 10-12-2022 End: 10-12-2022 Annotation/Addendum Radha Stoddard CNP Work Phone: [facility] Start: 10-04-2022 Telephone encounter Chris oquendo MD Work Phone: [facility] Comment on above: Missed Appointment ( R/s 09/21) Start: 09-28-2022 End: 09-28-2022 Office outpatient visit 15 minutes Radha Stoddard CNP Work Phone: [facility] Start: 09-28-2022 Review Radha Stoddard CNP Work Phone: [facility] Start: 06-15-2022 End: 06-15-2022 ambulatory [facility] Start: 06-09-2022 End: 06-09-2022 ambulatory LAUREL PIERCE [facility] Start: 06-04-2022 End: 06-04-2022 ambulatory [facility] Start: 05-31-2022 End: 06-01-2022 ambulatory CHRIS BRADY [facility] Start: 01-27-2022 End: 01-27-2022 Office outpatient visit 10 minutes Claire Espinoza [facility] Start: 01-29-2021 End: 01-29-2021 Office outpatient visit 25 minutes Claire Jeffries [employer] Work Phone: [facility] Start: 03-18-2020 Review Claire pascual [facility] Start: 03-14-2020 End: 03-14-2020 Phone Encounter Claire Espinoza Mechanical Cad Designer al [facility] Start: 03-14-2020 End: 03-14-2020 Office outpatient visit 15 minutes Claire Espinoza [facility] Start: 12-18-2019 End: 12-18-2019 Office outpatient visit 25 minutes Claire Espinoza [facility] Start: 12-12-2019 End: 12-12-2019 Office outpatient new 45 minutes Claire Espinoza [facility] Start: 11-21-2018 End: 11-21-2018 Patient encounter procedure KARLI YOUSSEF [facility] Start: 09-15-2018 End: 09-15-2018 Patient encounter procedure [facility] Start: 08-31-2018 End: 08-31-2018 Patient encounter procedure [facility] Procedures Date Procedure Procedure Detail Performing Clinician Start: 10-19-2022 Follow-up visit Follow-up CHRIS BRADY Start: 10-19-2021 End: 10-19-2021 Clothes Separator Office Visit Report Comments: See Note; NOTES: [facility] [address] [place] [address] OFFICE VISIT Date of Service: 10/19/21 MR#: [id number] Acct: [id number] Name: ANYI JENKINS Rep #: [id number] : 2000 Provider: MELVA rain Age/Sex: 21/F Location: [facility] Status: Signed Intake Vital Signs 10/19/21 13:21 Height 5 ft Weight: 119 lb 4 oz BMI 23.3 BP 100/60 Intake Visit Reasons: IUD REMOVAL Allergies amoxicillin [Amoxicillin] Allergy (Verified 10/19/21 13:21) Unknown Medications norelgestromin 150 mcg-e.estradiol 35 mcg/24 hr weekly transderm patch 1 patch TRANSDERMAL QWEEK #3 ea 10/19/21 [Rx Confirmed 10/19/21] Is last menstrual period known: No Nurse's Note: pt had lower abdominal/back pain earlier this month. was to [facility], testing showed no concerns PFSH PFSH Medical History (Updated 10/19/21 @ 13:41 by Roma Sullivan CHIEF POWER DISPATCHER, CHIEF POWER DISPATCHER-C) Depression with anxiety Vasovagal syncope Family History Grandfather Lung cancer Hypertension Heart disease Father Multiple sclerosis Prostate cancer Grandfather Parkinsons disease Other Cancer Social History Smoking Status: Current every day smoker alcohol intake: current details: occasionally substance use type: does not use caffeine: Yes what type of physical activity do you participate in: running frequency: 1-2 times per week seatbelt use: never do you feel safe at home: Yes additional social history: Single Pregancy History 0 Elective abortions Hx Para Spontaneous abortions Hx # Term Pregnancies Ectopic pregnancies Hx # Pregnancies Multiple births # of living children HPI IUD REMOVAL Details: ANYI JENKINS is a 21 year old who presents for IUD removal due to pain. Wants to try another contraception. Has had mirena since 2018. and denies STD concerns ROS Const Constitutional: Denies fatigue, weight gain or weight loss Cardio Card: Denies chest pain Resp Resp: Denies cough or dyspnea on exertion GI GI: Denies abdominal pain, bloating, change in stool character, constipation or vomiting : Reports as per HPI; Denies difficulty voiding, pelvic pain, urinary frequency, urinary incontinence, urinary urgency, vaginal discharge or vaginal pruritus Exam Const General: cooperative and no acute distress Nutritional Appearance: well nourished Orientation: oriented x3 General: bladder normal to palpation External Female Exam: normal external appearance and normal appearance of the urethra Urethra: normal appearance of the urethra Speculum Exam - Vagina: normal appearance of the vagina, normal vaginal discharge, no lesions and nontender Speculum Exam - Cervix: normal appearance of the cervix and other (smooth, nonfriable) Bimanual Exam- Vagina Uterus: normal bimanual exam, uterine size normal, bladder normal to palpation, uterine shape normal, uterine mobility normal and non-tender Bimanual Exam- Adnexa, other: normal adnexae, no masses and non-tender Office Procedures IUD Removal IUD Removal Details: Sign out documentation: Completed Procedure: Speculum placed in vagina, IUD string visualized and grasped with ring forceps. IUD easily removed in its entirety and patient tolerated well. Coding Level of Care Code Attention Gene Diagnoses Pelvic pain R10.2 Encounter for IUD removal Z30.432 Assessment and Plan Assessment and Plan (1) Pelvic pain: Status: Acute (2) Encounter for IUD removal: Orders: Orders: IUD Removal Today Z30.432 Plan - Roma Sullivan NP, CHIEF POWER DISPATCHER-C: Discussed use, benefits, risks and side effects of xulane patch. Does not think she will remember to take pill daily and declines other contraceptive options. Condom use reviewed. Written i nformation given. RTO 3 month med check and annual pap exam Plan Details Other Medications: New: norelgestromin-ethin.estra diol 150-35 mcg/24 hr (Xulane) apply once weekly for 3 weeks of a 4-week cycle 1 patch transdermal QWEEK 3 ea 7RF 10/19/21 1343 <Electronically signed by Roma Sullivan NP CHIEF POWER DISPATCHER-C> Date Roma Sullivan NP CHIEF POWER DISPATCHER-C Cosigner Signature: Date (if applicable) CC: Claire Jeffries Start: 05-19-2021 End: 05-27-2021 Clothes Separator Office Visit Report Comments: See Note; NOTES: [facility] [address] [place], [place] [address]. [address] [place] [address] OFFICE VISIT Date of Service: 05/19/21 MR#: [id number] Acct: [id number] Name: ANYI JENKINS Rep #: [id number] : 2000 Provider: MELVA rain Age/Sex: 21/F Location: [facility] [place] Status: Signed Intake Vital Signs 05/19/21 13:18 Height 5 ft Weight: 125 lb 8 oz BMI 24.5 BP 100/60 Intake Visit Reasons: discuss heavy/painful periods Allergies amoxicillin [Amoxicillin] Allergy (Verified 05/19/21 13:17) Unknown Medications levonorgestrel 20 mcg/24 hours (6 yrs) 52 mg intrauterine device 1 insert INTRAUTERINE ONCE 06/27/18 [History Confirmed 05/19/21] Is last menstrual period known: Yes Last Menstral Period: 05/12/21 Nurse's Note: heavy, painful menses x past 2, nausea and lightheaded. wants to check mirena placement PFS Medical History (Updated 05/19/21 @ 13:31 by Roma Sullivan NP, MARYC) Depression with anxiety Vasovagal syncope Family History (Updated 05/19/21 @ 13:18 by Bharati Tse) Grandfather Lung cancer Hypertension Heart disease Father Multiple sclerosis Prostate cancer Grandfather Parkinsons disease Other Cancer Social History Smoking Status: Current every day smoker alcohol intake: current details: occasionally substance use type: does not use caffeine: Yes what type of physical activity do you participate in: running frequency: 1-2 times per week seatbelt use: never do you feel safe at home: Yes additional social history: Single HPI discuss heavy/painful periods Details: ANYI JENKINS is a 21 year old who presents for noting menses are occurring every month last couple of months, dark in color and noting more off and on cramping. Wants to confirm IUD inplace. in March. Declines STD evaluation Female Reproductive History Last Menstral Period: 05/12/21 Pregancy History 0 Elective abortions Hx Para Spontaneous abortions Hx # Term Pregnancies Ectopic pregnancies Hx # Pregnancies Multiple births # of living children ROS Const Constitutional: Reports system reviewed and no additional complaints, except as documented Eyes Eyes: Reports system reviewed and no additional complaints, except as documented GI GI: Denies abdominal pain or change in bowel habits : Reports as per HPI Exam Const General: cooperative and no acute distress Nutritional Appearance: well nourished Orientation: oriented x3 General: bladder normal to palpation External Female Exam: normal external appearance and normal appearance of the urethra Urethra: normal appearance of the urethra Speculum Exam - Vagina: normal appearance of the vagina, normal vaginal discharge, no lesions and nontender Speculum Exam - Cervix: normal appearance of the cervix (strings at os) and other (smooth, nonfriable) Bimanual Exam- Vagina Uterus: normal bimanual exam, uterine size normal, bladder normal to palpation, uterine shape normal, uterine mobility normal and non-tender Bimanual Exam- Adnexa, other: normal adnexae, no masses and non-tender Coding Level of Care Code Off vis,est,level 3 Diagnoses Pelvic pain R10.2 IUD check up Z30.431 Assessment and Plan Assessment and Plan (1) Pelvic pain: Status: Acute Comment: US ordered (2) IUD check up: Plan - Roma Sullivan NP, CHIEF POWER DISPATCHER-C: Ultrasound to check IUD placement Considering change in contraception. 05/19/21 1332 <Electronically signed by Roma Sullivan NP CHIEF POWER DISPATCHER-C> Date Roma Sullivan NP CHIEF POWER DISPATCHER-C Cosigner Signature: Date (if applicable) CC: Claire Jeffries BENCH PRESS OPERATOR Work Phone: Start: 01-29-2021 End: 01-29-2021 CTA Chest W/WO Contrast Comments: See Note; NOTES: [facility] Imaging Services [address] [place] [address] CTA Chest W/WO Contrast MR#: [id number] Acct: [id number] Name: ANYI JENKINS Rep #: [id number] : 2000 F 20 From: Tom Cherry MD PCP: Claire Ciesa, CHIEF POWER DISPATCHER-C Status: REG CLI Study: CTA Chest W/WO Contrast Date of Exam: 01/29/21 Exam# [id number] Ordering Dr: Claire Jeffries NP CHIEF POWER DISPATCHER-C STUDY: CTA CHEST REASON FOR EXAM: Female, 20 years old. CHEST PAIN RADIATION DOSAGE (If Supplied By Facility): CTDIvol = ( 3.98 ) mGy, DLP = ( 113.98 ) mGycm TECHNIQUE: The examination was performed with the intravenous administration of IV 100mL Isovue-370. Post-processing of the angiographic images was performed, with multiplanar reformation and 3D reconstruction. Individualized dose optimization techniques were used for this CT. COMPARISON: None. FINDINGS: Normal enhancement of the main pulmonary artery and right and left pulmonary arteries. Normal enhancement of the bilateral peripheral pulmonary arteries. There is no demonstrated pulmonary embolism. Normal thoracic aorta and visualized great vessels. There is no demonstrated aortic dissection. Normal heart and pericardium. Normal mediastinum. Normal hilar regions. Normal visualized trachea and bronchi. The lungs are well expanded. Normal pulmonary parenchyma. Normal pleura. Normal chest wall structures. Normal osseous structures. Normal visualized upper abdomen. CT/CTA Chest W/WO Contrast IMPRESSION: Normal CTA chest examination, without a demonstrated pulmonary embolism or arterial dissection. Electronically Signed: Tom Cherry MD at 17:17 EDT Tel , Service support , CC: CHIEF POWER DISPATCHER-C Claire Jeffries Plug Sorter: Signed Claire Jeffries BENCH PRESS OPERATOR Work Phone: Start: 02-13-2020 End: 02-13-2020 Clothes Separator Office Visit Report Comments: See Note; NOTES: [facility] 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 Required: No Accompanied by: Self Is patient in pain?: Yes (L breast) Pain scale (1-10): 4 Allergies amoxicillin [Amoxicillin] Allergy (Verified 02/13/20 09:02) Unknown Medications levonorgestrel 20 mcg/24 hours (5 yrs) 52 mg intrauterine device 1 insert INTRAUTERINE ONCE 06/27/18 [History Confirmed 02/13/20] Is last menstrual period known: Yes Last Menstral Period: 01/17/20 Post menopausal: No Patient : No : No PFSH Medical History Depression with anxiety (Acute) Vasovagal syncope (Acute) Family History Grandfather Lung cancer Hypertension Heart disease Father Multiple sclerosis Grandfather Parkinsons disease Other Cancer Social History (Updated 02/13/20 @ 09:20 by MELVA Pozo) Smoking Status: Current every day smoker alcohol intake: current details: occasionally substance use type: does not use caffeine: Yes what type of physical activity do you participate in: running frequency: 1-2 times per week seatbelt use: never do you feel safe at home: Yes additional social history: Single HPI Lump on left breast : Details: ANYI JENKINS is a 19 year old who presents for left breast lump X 3 months that has enlarged and now more painful. Supportive bra is helpful in reducing discomfort. Denies daily caffeine intake Female Reproductive History Last Menstral Period: 01/17/20 Pregancy History 0 Elective abortions Hx Para Spontaneous abortions Hx # Term Pregnancies Ectopic pregnancies Hx # Pregnancies Multiple births # of living children ROS Const Constitutional: Reports system reviewed and no additional complaints, except as docu GI GI: Denies abdominal pain or change in bowel habits Skin Skin/Breast: Reports as per HPI Exam Const General: cooperative, no acute distress Nutritional Appearance: well nourished Orientation: oriented x3 Chest Breast inspection: normal inspection of the breasts Breast palpation: normal palpation of the breasts (right), abnormal palpation of the breast (left breast-soft mobile mass, ropelike, cystic) Assessment Plan Problems 1. Left breast mass N63.20 ultrasound Plan Ultrasound Supportive bra, rotate Vit E oral Avoid caffeine. Orders Orders: Breast Complete Unilateral Today N63.20 Coding Level of Care Code Off vis,est,level 3 Diagnoses Left breast mass N63.20 02/13/20 0920 <Electronically signed by Roma FRYE> Date Roma FRYE Cosigner Signature: Date (if applicable) CC: Claire Jeffries Start: 12-12-2019 End: 12-12-2019 No Known Past Surgical History Nimo Narvaez Plan of Treatment Date Care Activity Detail Author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 oriented to person, place, and time. ASSESSMENT/PLAN: 1. Abdominal pain, unspecified abdominal location - ICD9: 789.00, ICD10: R10.9 - HCG QUAL UR B/O - UA DIP, URINE (POC) - CBC + DIFF - COMP METABOLIC PANEL - C-REACTIVE PROTEIN (CRP) test negative. Large amount of blood noted on urinalysis. Patient states started menstrual cycle today. Patient states symptoms are gradually improving. Symptoms were worse on Tuesday. Have improved since Tuesday. Lab tests obtained. Results pending. Alternative diagnosis discussed. Will follow up with PCP 2 to 3 days if symptoms are not improving. Red flags for in person evaluation discussed with patient. Patient was educated on supportive therapies. Patient was instructed to immediately proceed to emergency room for any new, worsening, or symptoms lasting longer than anticipated. The patient's clinical presentation is otherwise unremarkable at this time. Based on exam and clinical finding, the patient is stable for discharge. Plan of care was discussed with patient. Patient verbalizes understanding and agrees to plan of care. This not (more content not included)... [facility] 04-08-2021 Note HNO ID: [id number] Author: Minh Durand APRN.BENCH PRESS OPERATOR Service: ? Author Type: Nurse Practitioner Type: Progress Notes Filed: 04/08/2021 3:47 PM Note Text: Subjective HPI A nontoxic appearing female presents to urgent care with chief complaint of possible UTI. Duration of symptoms 3 days. Associated symptoms dysuria, frequency, and urgency. Patient states she has noticed increased vaginal discharge and itching. Patient has history of UTIs in past with similar signs and symptoms. Patient denies the use of any rkli-bqf-srfeijg medications or home remedies for symptom management. Patient states pain is a 4/10. Patient denies any fevers, flank pain, abdominal pain, nausea, vomiting, chance of STDs, chance of , or urological abnormalities. Past medical history prescription medication use allergies reviewed. .Patient presents with: Urinary Urgency: urgency, burning and back pain x 3 days History reviewed. No pertinent past medical history. History reviewed. No pertinent surgical history. ALLERGIES Amoxicillin MEDICATIONS albuterol HFA (PROAIR HFA) 90 mcg/actuation inhaler Inhale 2 Puffs as instructed every 4 hours as needed. benzonatate (TESSALON PERLE) 100 mg capsule Take 2 capsules by mouth three times daily as needed. ondansetron orally disintegrating (ZOFRAN ODT) 4 mg disintegrating tablet Take 1 tablet by mouth every 6 hours as needed for Nausea/Vomiting. History reviewed. No pertinent family history. Social History Tobacco Use - Smoking status: Never Smoker - Smokeless tobacco: Never Used Substance Use Topics - Alcohol use: Not on file - Drug use: Not on file BP 118/78 Pulse 69 Temp 36.6 ?C (97.8 ?F) (Tympanic) Resp 18 Wt 56.9 kg (125 lb 6.4 oz) LMP 02/27/2016 SpO2 99% Review of Systems Constitutional: Negative for chills, fever and malaise/fatigue. HENT: Negative for congestion, ear discharge, ear pain, sinus pain and sore throat. Eyes: Negative for blurred vision, pain, discharge and redness. Respiratory: Negative for cough, sputum production, shortness of breath, wheezing and stridor. Cardiovascular: Negative for chest pain. Gastrointestinal: Negative for abdominal pain, diarrhea, nausea and vomiting. Genitourinary: Positive for dysuria, frequency and urgency. Negative for flank pain and hematuria. Musculoskeletal: Negative for myalgias. Skin: Negative for itching and rash. Neurological: Negative for headaches. Objective Physical Exam Constitutional: General: She is not in acute distress. Appearance: She is not diaphoretic. HENT: Head: Normocephalic. Mouth/Throat: Mouth: Mucous membranes are moist. Pharynx: Oropharynx is clear. No oropharyngeal exudate or posterior oropharyngeal erythema. Eyes: Conjunctiva/sclera: Conjunctivae normal. Pupils: Pupils are equal, round, and reactive to light. Cardiovascular: Rate and Rhythm: Normal rate and regular rhythm. Heart sounds: Normal heart sounds. Pulmonary: Effort: Pulmonary effort is normal. No tachypnea, accessory muscle usage or respiratory distress. Breath sounds: Normal breath sounds. Abdominal: General: Bowel sounds are normal. Palpations: Abdomen is soft. Tenderness: There is abdominal tenderness in the suprapubic area. There is no right CVA tenderness or left CVA tenderness. Musculoskeletal: Cervical back: Normal range of motion and neck supple. Skin: General: Skin is warm and dry. Neurological: Mental Status: She is alert and oriented to person, place, and time. ASSESSMENT/PLAN: 1. Urgency of urination - ICD9: 788.63, ICD10: R39.15 - UA DIP, URINE (POC) - URINE CULTURE - VAGINAL PATHOGENS DNA PROBES Trace amount of leukocytes and and blood noted on urinalysis. With patient's suprapubic tenderness patient will be started on Macrobid. With patient's vaginal discharge and itching self vaginal swab will be obtained. Patient is not concerned about STDs. Patient was educated on supportive therapies. Patient will follow up with primary care provider as needed. Patient was instructed to immediately proceed to emergency room for any new, worsening, or symptoms lasting longer than anticipated. The patient's clinical presentation is otherwise unremarkable at this time. Based on exam and clinical finding, the patient is stable for discharge. Plan of care was discussed with patient. Patient verbalizes understanding and agrees to plan of care. This note was generated using Press-sense software. It may contain errors in wording, punctuation, or spelling. Minh Durand APRN.BENCH PRESS OPERATOR [facility] Evaluation note Diagnosis Acute conjunctivitis of both eyes, unspecified acute conjunctivitis type- [facility] Name Dates Details Patient Instructions Indication:BMI 23.0-23.9, adult Start:29-Jan-2021 Instruction Type:Provider Instructions for Treatment How to Access Health Informa tion Online using Patient Portal and 3rd [employer] Apps Indication:BMI 23.0-23.9, adult Start:29-Jan-2021 Instruction Type:Patient Education How to access health informa tion online Indication:Smoker Start:14-Mar-2020 Instruction Type:Patient Education How to access health informa tion online - Detail Indication:Smoker Start:14-Mar-2020 Instruction Type:Patient Education Patient Instructions Indication:Smoker Start:14-Mar-2020 Instruction Type:Provider Instructions for Treatment How to access health informa tion online Indication:BMI 26.0-26.9,adult Start:18-Dec-2019 Instruction Type:Patient Education How to access health informa tion online - Detail Indication:BMI 26.0-26.9,adult Start:18-Dec-2019 Instruction Type:Patient Education Patient Instructions Indication:BMI 26.0-26.9,adult Start:18-Dec-2019 Instruction Type:Provider Instructions for Treatment How to access health informa tion online Indication:Anxiety and depression Start:12-Dec-2019 Instruction Type:Patient Education How to access health informa tion online - Detail Indication:Anxiety and depression Start:12-Dec-2019 Instruction Type:Patient Education Patient Instructions Indication:Anxiety and depression Start:12-Dec-2019 Instruction Type:Provider Instructions for Treatment [facility]; [facility] Work Phone: Instructions* Name Dates Details How to Access Health Informa tion Online using Patient Portal and 3rd [employer] Apps Indication:Smoker Start:27-Jan-2022 Instruction Type:Patient Education Patient Instructions Indication:Smoker Start:27-Jan-2022 Instruction Type:Provider Instructions for Treatment Patient Instructions Indication:BMI 23.0-23.9, adult Start:29-Jan-2021 Instruction Type:Provider Instructions for Treatment How to Access Health Informa tion Online using Patient Portal and 3rd [employer] Apps Indication:BMI 23.0-23.9, adult Start:29-Jan-2021 Instruction Type:Patient Education How to access health informa tion online Indication:Smoker Start:14-Mar-2020 Instruction Type:Patient Education How to access health informa tion online - Detail Indication:Smoker Start:14-Mar-2020 Instruction Type:Patient Education Patient Instructions Indication:Smoker Start:14-Mar-2020 Instruction Type:Provider Instructions for Treatment How to access health informa tion online Indication:BMI 26.0-26.9,adult Start:18-Dec-2019 Instruction Type:Patient Education How to access health informa tion online - Detail Indication:BMI 26.0-26.9,adult Start:18-Dec-2019 Instruction Type:Patient Education Patient Instructions Indication:BMI 26.0-26.9,adult Start:18-Dec-2019 Instruction Type:Provider Instructions for Treatment How to access health informa tion online Indication:Anxiety and depression Start:12-Dec-2019 Instruction Type:Patient Education How to access health informa tion online - Detail Indication:Anxiety and depression Start:12-Dec-2019 Instruction Type:Patient Education Patient Instructions Indication:Anxiety and depression Start:12-Dec-2019 Instruction Type:Provider Instructions for Treatment [facility]; [facility] Work Phone: Instructions* Name Dates Details Patient Instructions Indication:Smoker Start:28-Sep-2022 Instruction Type:Provider Instructions for Treatment How to Access Health Informa tion Online using Patient Portal and 3rd [employer] Apps Indication:Smoker Start:28-Sep-2022 Instruction Type:Patient Education How to Access Health Informa tion Online using Patient Portal and 3rd [employer] Apps Indication:Smoker Start:27-Jan-2022 Instruction Type:Patient Education Patient Instructions Indication:Smoker Start:27-Jan-2022 Instruction Type:Provider Instructions for Treatment Patient Instructions Indication:BMI 23.0-23.9, adult Start:29-Jan-2021 Instruction Type:Provider Instructions for Treatment How to Access Health Informa tion Online using Patient Portal and 3rd [employer] Apps Indication:BMI 23.0-23.9, adult Start:29-Jan-2021 Instruction Type:Patient Education How to access health informa tion online Indication:Smoker Start:14-Mar-2020 Instruction Type:Patient Education How to access health informa tion online - Detail Indication:Smoker Start:14-Mar-2020 Instruction Type:Patient Education Patient Instructions Indication:Smoker Start:14-Mar-2020 Instruction Type:Provider Instructions for Treatment How to access health informa tion online Indication:BMI 26.0-26.9,adult Start:18-Dec-2019 Instruction Type:Patient Education How to access health informa tion online - Detail Indication:BMI 26.0-26.9,adult Start:18-Dec-2019 Instruction Type:Patient Education Patient Instructions Indication:BMI 26.0-26.9,adult Start:18-Dec-2019 Instruction Type:Provider Instructions for Treatment How to access health informa tion online Indication:Anxiety and depression Start:12-Dec-2019 Instruction Type:Patient Education How to access health informa tion online - Detail Indication:Anxiety and depression Start:12-Dec-2019 Instruction Type:Patient Education Patient Instructions Indication:Anxiety and depression Start:12-Dec-2019 Instruction Type:Provider Instructions for Treatment [facility]; [facility] Work Phone: [facility]* Name Dates Details Patient Instructions Indication:Smoker Start:28-Sep-2022 Instruction Type:Provider Instructions for Treatment How to Access Health Informa tion Online using Patient Portal and 3rd [employer] Apps Indication:Smoker Start:28-Sep-2022 Instruction Type:Patient Education How to Access Health Informa tion Online using Patient Portal and 3rd [employer] Apps Indication:Smoker Start:27-Jan-2022 Instruction Type:Patient Education Patient Instructions Indication:Smoker Start:27-Jan-2022 Instruction Type:Provider Instructions for Treatment Patient Instructions Indication:BMI 23.0-23.9, adult Start:29-Jan-2021 Instruction Type:Provider Instructions for Treatment How to Access Health Informa tion Online using Patient Portal and 3rd [employer] Apps Indication:BMI 23.0-23.9, adult Start:29-Jan-2021 Instruction Type:Patient Education How to access health informa tion online Indication:Smoker Start:14-Mar-2020 Instruction Type:Patient Education How to access health informa tion online - Detail Indication:Smoker Start:14-Mar-2020 Instruction Type:Patient Education Patient Instructions Indication:Smoker Start:14-Mar-2020 Instruction Type:Provider Instructions for Treatment How to access health informa tion online Indication:BMI 26.0-26.9,adult Start:18-Dec-2019 Instruction Type:Patient Education How to access health informa tion online - Detail Indication:BMI 26.0-26.9,adult Start:18-Dec-2019 Instruction Type:Patient Education Patient Instructions Indication:BMI 26.0-26.9,adult Start:18-Dec-2019 Instruction Type:Provider Instructions for Treatment How to access health informa tion online Indication:Anxiety and depression Start:12-Dec-2019 Instruction Type:Patient Education How to access health informa tion online - Detail Indication:Anxiety and depression Start:12-Dec-2019 Instruction Type:Patient Education Patient Instructions Indication:Anxiety and depression Start:12-Dec-2019 Instruction Type:Provider Instructions for Treatment [facility]; [facility] Work Phone: Instructions* Name Dates Details Patient Instructions Indication:Smoker Start:28-Sep-2022 Instruction Type:Provider Instructions for Treatment How to Access Health Informa tion Online using Patient Portal and 3rd [employer] Apps Indication:Smoker Start:28-Sep-2022 Instruction Type:Patient Education How to Access Health Informa tion Online using Patient Portal and 3rd [employer] Apps Indication:Smoker Start:27-Jan-2022 Instruction Type:Patient Education Patient Instructions Indication:Smoker Start:27-Jan-2022 Instruction Type:Provider Instructions for Treatment Patient Instructions Indication:BMI 23.0-23.9, adult Start:29-Jan-2021 Instruction Type:Provider Instructions for Treatment How to Access Health Informa tion Online using Patient Portal and 3rd [employer] Apps Indication:BMI 23.0-23.9, adult Start:29-Jan-2021 Instruction Type:Patient Education How to access health informa tion online Indication:Smoker Start:14-Mar-2020 Instruction Type:Patient Education How to access health informa tion online - Detail Indication:Smoker Start:14-Mar-2020 Instruction Type:Patient Education Patient Instructions Indication:Smoker Start:14-Mar-2020 Instruction Type:Provider Instructions for Treatment How to access health informa tion online Indication:BMI 26.0-26.9,adult Start:18-Dec-2019 Instruction Type:Patient Education How to access health informa tion online - Detail Indication:BMI 26.0-26.9,adult Start:18-Dec-2019 Instruction Type:Patient Education Patient Instructions Indication:BMI 26.0-26.9,adult Start:18-Dec-2019 Instruction Type:Provider Instructions for Treatment How to access health informa tion online Indication:Anxiety and depression Start:12-Dec-2019 Instruction Type:Patient Education How to access health informa tion online - Detail Indication:Anxiety and depression Start:12-Dec-2019 Instruction Type:Patient Education Patient Instructions Indication:Anxiety and depression Start:12-Dec-2019 Instruction Type:Provider Instructions for Treatment [facility] Work Phone: Instructions* Name Dates Details Patient Instructions Indication:Anxiety and depression Start:01-Nov-2022 Instruction Type:Provider Instructions for Treatment How to Access Health Informa tion Online using Patient Portal and 3rd [employer] Apps Indication:Anxiety and depression Start:01-Nov-2022 Instruction Type:Patient Education Patient Instructions Indication:Smoker Start:28-Sep-2022 Instruction Type:Provider Instructions for Treatment How to Access Health Informa tion Online using Patient Portal and 3rd [employer] Apps Indication:Smoker Start:28-Sep-2022 Instruction Type:Patient Education How to Access Health Informa tion Online using Patient Portal and 3rd [employer] Apps Indication:Smoker Start:27-Jan-2022 Instruction Type:Patient Education Patient Instructions Indication:Smoker Start:27-Jan-2022 Instruction Type:Provider Instructions for Treatment Patient Instructions Indication:BMI 23.0-23.9, adult Start:29-Jan-2021 Instruction Type:Provider Instructions for Treatment How to Access Health Informa tion Online using Patient Portal and 3rd [employer] Apps Indication:BMI 23.0-23.9, adult Start:29-Jan-2021 Instruction Type:Patient Education How to access health informa tion online Indication:Smoker Start:14-Mar-2020 Instruction Type:Patient Education How to access health informa tion online - Detail Indication:Smoker Start:14-Mar-2020 Instruction Type:Patient Education Patient Instructions Indication:Smoker Start:14-Mar-2020 Instruction Type:Provider Instructions for Treatment How to access health informa tion online Indication:BMI 26.0-26.9,adult Start:18-Dec-2019 Instruction Type:Patient Education How to access health informa tion online - Detail Indication:BMI 26.0-26.9,adult Start:18-Dec-2019 Instruction Type:Patient Education Patient Instructions Indication:BMI 26.0-26.9,adult Start:18-Dec-2019 Instruction Type:Provider Instructions for Treatment How to access health informa tion online Indication:Anxiety and depression Start:12-Dec-2019 Instruction Type:Patient Education How to access health informa tion online - Detail Indication:Anxiety and depression Start:12-Dec-2019 Instruction Type:Patient Education Patient Instructions Indication:Anxiety and depression Start:12-Dec-2019 Instruction Type:Provider Instructions for Treatment [facility] Work Phone: Instructions* Name Dates Details Patient Instructions Indication:Anxiety and depression Start:01-Nov-2022 Instruction Type:Provider Instructions for Treatment How to Access Health Informa tion Online using Patient Portal and [employer]rd [employer] Apps Indication:Anxiety and depression Start:01-Nov-2022 Instruction Type:Patient Education Patient Instructions Indication:Smoker Start:28-Sep-2022 Instruction Type:Provider Instructions for Treatment How to Access Health Informa tion Online using Patient Portal and [employer]rd [employer] Apps Indication:Smoker Start:28-Sep-2022 Instruction Type:Patient Education How to Access Health Informa tion Online using Patient Portal and [employer]rd [employer] Apps Indication:Smoker Start:27-Jan-2022 Instruction Type:Patient Education Patient Instructions Indication:Smoker Start:27-Jan-2022 Instruction Type:Provider Instructions for Treatment Patient Instructions Indication:BMI 23.0-23.9, adult Start:29-Jan-2021 Instruction Type:Provider Instructions for Treatment How to Access Health Informa tion Online using Patient Portal and 3rd [employer] Apps Indication:BMI 23.0-23.9, adult Start:29-Jan-2021 Instruction Type:Patient Education How to access health informa tion online Indication:Smoker Start:14-Mar-2020 Instruction Type:Patient Education How to access health informa tion online - Detail Indication:Smoker Start:14-Mar-2020 Instruction Type:Patient Education Patient Instructions Indication:Smoker Start:14-Mar-2020 Instruction Type:Provider Instructions for Treatment How to access health informa tion online Indication:BMI 26.0-26.9,adult Start:18-Dec-2019 Instruction Type:Patient Education How to access health informa tion online - Detail Indication:BMI 26.0-26.9,adult Start:18-Dec-2019 Instruction Type:Patient Education Patient Instructions Indication:BMI 26.0-26.9,adult Start:18-Dec-2019 Instruction Type:Provider Instructions for Treatment How to access health informa tion online Indication:Anxiety and depression Start:12-Dec-2019 Instruction Type:Patient Education How to access health informa tion online - Detail Indication:Anxiety and depression Start:12-Dec-2019 Instruction Type:Patient Education Patient Instructions Indication:Anxiety and depression Start:12-Dec-2019 Instruction Type:Provider Instructions for Treatment [facility] Work Phone: Instructions* Name Dates Details Patient Instructions Indication:Anxiety and depression Start:01-Nov-2022 Instruction Type:Provider Instructions for Treatment How to Access Health Informa tion Online using Patient Portal and [employer]rd [employer] Apps Indication:Anxiety and depression Start:01-Nov-2022 Instruction Type:Patient Education Patient Instructions Indication:Smoker Start:28-Sep-2022 Instruction Type:Provider Instructions for Treatment How to Access Health Informa tion Online using Patient Portal and 3rd [employer] Apps Indication:Smoker Start:28-Sep-2022 Instruction Type:Patient Education How to Access Health Informa tion Online using Patient Portal and [employer]rd [employer] Apps Indication:Smoker Start:27-Jan-2022 Instruction Type:Patient Education Patient Instructions Indication:Smoker Start:27-Jan-2022 Instruction Type:Provider Instructions for Treatment Patient Instructions Indication:BMI 23.0-23.9, adult Start:29-Jan-2021 Instruction Type:Provider Instructions for Treatment How to Access Health Informa tion Online using Patient Portal and 3rd [employer] Apps Indication:BMI 23.0-23.9, adult Start:29-Jan-2021 Instruction Type:Patient Education How to access health informa tion online Indication:Smoker Start:14-Mar-2020 Instruction Type:Patient Education How to access health informa tion online - Detail Indication:Smoker Start:14-Mar-2020 Instruction Type:Patient Education Patient Instructions Indication:Smoker Start:14-Mar-2020 Instruction Type:Provider Instructions for Treatment How to access health informa tion online Indication:BMI 26.0-26.9,adult Start:18-Dec-2019 Instruction Type:Patient Education How to access health informa tion online - Detail Indication:BMI 26.0-26.9,adult Start:18-Dec-2019 Instruction Type:Patient Education Patient Instructions Indication:BMI 26.0-26.9,adult Start:18-Dec-2019 Instruction Type:Provider Instructions for Treatment How to access health informa tion online Indication:Anxiety and depression Start:12-Dec-2019 Instruction Type:Patient Education How to access health informa tion online - Detail Indication:Anxiety and depression Start:12-Dec-2019 Instruction Type:Patient Education Patient Instructions Indication:Anxiety and depression Start:12-Dec-2019 Instruction Type:Provider Instructions for Treatment [facility] Work Phone: Summary Purpose Family History Unknown Family Member Name Dates Details Father Comments:MS Status:Active Maternal Grandfather Comments:Parkinsonism. HTN, cancer thinks lung Status:Active Maternal Grandmother Comments:HTN Status:Active Unknown Family Member Name Dates Details Father Comments:MS Status:Active Maternal Grandfather Comments:Parkinsonism. HTN, cancer thinks lung Status:Active Maternal Grandmother Comments:HTN Status:Active Unknown Family Member Name Dates Details Father Comments:MS Status:Active Maternal Grandfather Comments:Parkinsonism. HTN, cancer thinks lung Status:Active Maternal Grandmother Comments:HTN Status:Active Unknown Family Member Name Dates Details Father Comments:MS Status:Active Maternal Grandfather Comments:Parkinsonism. HTN, cancer thinks lung Status:Active Maternal Grandmother Comments:HTN Status:Active Unknown Family Member Name Dates Details Father Comments:MS Status:Active Maternal Grandfather Comments:Parkinsonism. HTN, cancer thinks lung Status:Active Maternal Grandmother Comments:HTN Status:Active Unknown Family Member Name Dates Details Father Comments:MS Status:Active Maternal Grandfather Comments:Parkinsonism. HTN, cancer thinks lung Status:Active Maternal Grandmother Comments:HTN Status:Active Unknown Family Member Name Dates Details Father Comments:MS Status:Active Maternal Grandfather Comments:Parkinsonism. HTN, cancer thinks lung Status:Active Maternal Grandmother Comments:HTN Status:Active Unknown Family Member Name Dates Details Father Comments:MS Status:Active Maternal Grandfather Comments:Parkinsonism. HTN, cancer thinks lung Status:Active Maternal Grandmother Comments:HTN Status:Active Unknown Family Member Name Dates Details Father Comments:MS Status:Active Maternal Grandfather Comments:Parkinsonism. HTN, cancer thinks lung Status:Active Maternal Grandmother Comments:HTN Status:Active Unknown Family Member Name Dates Details Father Comments:MS Status:Active Maternal Grandfather Comments:Parkinsonism. HTN, cancer thinks lung Status:Active Maternal Grandmother Comments:HTN Status:Active Advance Directives Latest Code Status on File Code Status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
[2024-06-04 11:12] LABS: HPV Reflexed? NOT INDICATED
== END | disposition home or self-care (01) ==
LOC: LABSPEC 15:53
PROVIDERS: PCP Internal Medicine; Referring Provider Nurse Practitioner Women's Health; Visit Provider Nurse Practitioner Women's Health
DX: Z12.4 Encounter for screening for malignant neoplasm of cervix (principal)
CPT/HCPCS: 88175; G0145

== ENCOUNTER → 2025-06-19 | Outpatient (CLI) | payer OTHER, SELFPAY ==
--- OUTSIDE RECORDS SUMMARY | 2025-06-19 12:22 | XMS RPT_ITS | CCD ---
Author Organization [facility] Care Team Providers Care Clinical Liaison Name Role Phone KARLI YOUSSEF Attending Unavailable REFERRED, SELF Referring Unavailable FOZIA, EWELINA O Primary Care Unavailable FOZIA, EWELINA O Attending Unavailable REFERRED, SELF Referring Unavailable FOZIA, EWELINA O Primary Care Unavailable FOZIA, EWELINA O Attending Unavailable REFERRED, SELF Referring Unavailable FOZIA, EWELINA O Primary Care Unavailable Ciesa, Renee Unavailable [place] Unavailable Gravius, Nimo Unavailable Unavailable Laly, Casi Unavailable Unavailable Unavailable Laurel Holliday Unavailable Unavailable Ciesa HEALTH INSPECTOR FOOD, Renee Unavailable Gravius PROFILING MACHINE OPERATOR, Nimo Unavailable Unavailable Laly DO, Casi Unavailable Unavailable Unavailable Ciesa, Claire Unavailable Unavailable Ciesa, Claire Unavailable Slarb POSTBED STITCHER, Cassidy Unavailable Unavailable Radha Stoddard CNP Unavailable Radha Stoddard CNP Unavailable [phone] Unavailable Unavailable Priscilla Lennon Unavailable Lo Cole Unavailable CHRIS BRADY Attending Unavailable CHRIS BRADY Attending Unavailable NO, PCP Primary Care Unavailable LAUREL PIERCE Attending Unavailable CHRIS BRADY Admitting Unavailable CHRIS BRADY Attending Unavailable Radha Stoddard CNP Attending Unavailable Radha Stoddard CNP Referring Unavailable Radha Stoddard CNP Consulting Unavailable [facility] Primary Care Provider Unav ailable Unavailable Primary Care Provider Unavailabl e Nesha ACADEMIC AFFAIRS SPECIALIST, ACADEMIC AFFAIRS SPECIALIST-C Claire Primary Care Provider Nesha ACADEMIC AFFAIRS SPECIALIST, ACADEMIC AFFAIRS SPECIALIST-C Claire Referring Provider EM Tompkins Attending Provider No, Pcp Primary Care Provider Unavailabl e Unavailable Primary Care Provider Unavailabl e PHYSICIAN, NOT RECORDED Primary Care Physician U navailable MINH DURAND Attending Unavailable MINH DURAND Referring Unavailable URSULA MCCARTHY, DR HOWARD Attending Unavailab le PHYSICIAN, NOT RECORDED Primary Care Unavaila Casi Green Primary Care Unavailable Jessi Raines Attending Unavailabl e LalyCasi pruitt Referring Unavailable Casi Ruffin Primary Care Unavailable Vandana Reyna Referring Unavailable Nate Morrison Attending Unavailable Laly, Casi Primary Care Unavailable Roma Sullivan NP Attending Unavailable LalyCasi pruitt Referring Unavailable Allergies Allergy Classification Reported Allergen(s) Allergy Type Date of Onset Reaction(s) Facility (11 sources) Amoxicillin; Translations: [AMOXICILLIN] Drug Allergy 3 [facility] Repository (13 sources) Amoxicillin / Clavulanate; Translations: [Amoxicillin-Pot Clavulanate ER *PENICILLINS*] Drug Allergy [facility] Work Phone: Comment on above: hives (1 source) hydrOXYzine; Translations: [hydroxyzine] Drug Allergy [facility] (1 source) hydrOXYzine Drug Allergy 5 [facility] Repository Medications Current Medications Medication Drug Class(es) Dates Sig (Normalized) Sig (Original) [id number] 200 actuat albuterol 0.09 mg/actuat metered dose inhaler (4 sources) beta2-Adrenergic Agonist take 2 puff(s) by inhalation every four hours as needed albuterol HFA (PROVENTIL HFA, VENTOLIN HFA) 90 mcg/actuation inhaler Inhale 2 Puffs as instructed every 4 hours as needed. Active Comment on above: Inhale 2 Puffs as in structed every 4 hours as needed. azithromycin 250 mg oral tablet (2 sources) Macrolide Antimicrobial Start: 10-24-2023 Azithromycin Active 250 MG PO .COMPLEX October 24, 2023 12:00am 2 tablets (500 mg) on day 1, then 1 tablet daily on days 2 through 11 Start: 10-31-2017 End: 12-01-2017 take 1000 mg by mouth once Azithromycin Discontinued 1 000 MG PO ONCE 2 October 31, 2017 12:00am December 01, 2017 11:00am benzonatate 100 mg oral capsule (4 sources) Non-narcotic Antitussive Start: 08-18-2018 take 2 capsules by mouth three times daily as needed benzonatate (TESSALON PERLE) 100 mg capsule Indications: Viral syndrome Take 2 capsules by mouth three times daily as needed. 30 capsule 08/18/2018 Active Comment on above: Take 2 capsules by m outh three times daily as needed. 168 hr ethinyl estradiol 0.05982 mg/hr / norelgestromin 0.10943 mg/hr transdermal system (2 sources) Progestin, Estrogen Start: 10-19-2021 norelgestromin-et hinyl estradiol (Ortho-Evra) 150-35 MCG/24HR Place 1 patch on the skin. 0 10/19/2021 Active Start: 10-19-2021 Norelgestromin -Ethin.Estradiol (Xulane) 150-35 mcg/24 hr patch weekly Active 1 PATCH TD EVERY WEEK October 19, 2021 12:00am apply once weekly for 3 weeks of a 4-week cycle naproxen 500 mg oral tablet (2 sources) Nonsteroidal Anti-inflammatory Drug Start: 06-13-2023 take 1 tablet by mouth twice daily Naproxen (Naprosyn) 500 mg tablet Active 500 MG PO TWICE A DAY June 13, 2023 1:00am Start: 06-10-2018 End: 06-27-2018 take 500 mg by mouth twice daily as needed Naproxen Discontinued 500 MG PO TWICE DAILY NEEDED June 10, 2018 1:00am June 27, 2018 2:31pm polymyxin b 68120 unt/ml / trimethoprim 1 mg/ml ophthalmic solution (1 source) Dihydrofolate Reductase Inhibitor Antibacterial, Polymyxin-class Antibacterial Start: 12-21-2022 End: 12-28-2022 take 1 drop(s) into the eye(s) every four hours trimethoprim-polymyxin (POLYTRIM) 10,000 unit- 1 mg/mL ophthalmic solution Use 1 Drop in both eyes every 4 hours for 7 days. 10 mL 0 12/21/2022 12/28/2022 Active Comment on above: Use 1 Drop in both eyes every 4 hours fo r 7 days. predniSONE 50 mg oral tablet (1 source) Start: 01-24-2025 End: 01-31-2025 predniSONE 50 mg oral tablet Dose : 50 mg = 1 tab(s), PO, Daily, X 7 day(s), # 7 tab(s), 0 Refill(s), 01/31/25 4:58:00 PM EDT Start Date: 01/24/25 Stop Date: 01/31/25 Status: Ordered Quantity: 7.0 Unit: tab(s) Repeat number: 1 tiZANidine 2 mg oral tablet (1 source) Central alpha-2 Adrenergic Agonist Start: 01-24-2025 tiZANidine 2 mg oral tablet Dose : 2 mg = 1 tab(s), Oral, q8h, # 20 tab(s), 0 Refill(s) Start Date: 01/24/25 Status: Ordered Quantity: 20.0 Unit: tab(s) Repeat number: 1 Completed/Discontinued Medications Medication Drug Class(es) Dates Sig (Normalized) Sig (Original) clindamycin 300 mg oral capsule (1 source) Lincosamide Antibacterial End: 10-19-2022 clindamycin (Cleocin) 300 MG capsule Take 300 mg by mouth in the morning and 300 mg at noon and 300 mg before bedtime. 0 10/19/2022 Discontinued cyclobenzaprine hydrochloride 10 mg oral tablet (1 source) Muscle Relaxant Start: 06-10-2018 End: 06-27-2018 take 10 mg by mouth three times daily Cyclobenzaprine Discontinued 10 MG PO THREE TIMES A DAY June 10, 2018 1:00am June 27, 2018 2:31pm doxycycline monohydrate 100 mg oral capsule (13 [...] Active Start: 11-01-2022 take 1 capsule by [facility] once daily Cymbalta 20 mg oral capsule,delayed release (enteric coated) 1 Capsule daily for 0 days Quantity: 30 {Capsule} Refills: 3 Ordered: 01-Nov-2022 Radha Stoddard CNP Start : 01-Nov-2022 Active ergocalciferol 1.25 mg oral capsule (13 sources) Provitamin D2 Compound Start: 12-18-2019 End: 03-17-2020 take 1 capsule by mouth two times weekly Ergocalciferol 1.25 MG (88729 UT) Oral Capsule 1 (one) Capsule twice [...] Start : 28-Sep-2022 End : 01-Nov-2022 Inactive fluconazole 150 mg oral tablet (1 source) Azole Antifungal Start: 11-22-2019 End: 02-13-2020 Fluconazole Discontinued 150 MG PO .COMPLEX 2 November 22, 2019 12:00am February 13, 2020 9:02am 150 mg PO take one po now and repeat in 3 days hydrOXYzine hydrochloride 25 mg oral tablet (7 sources) Antihistamine Start: 09-28-2022 End: 11-01-2022 hydrOXYzine HCL 25 mg oral tablet 1 (one) tablet 1 tab at bedtime as needed for sleep for 0 days Quantity: 30 {Tablet} Refills: 3 Ordered: 01-Nov-2022 Slasolomon MARINA Cassidy Start : 28-Sep-2022 End : 01-Nov-2022 Inactive Comments: Medication taken as needed. Comment on above: Medication taken as needed. levonorgestrel 0.628284 mg/hr intrauterine system (1 source) Progestin, Progestin-containin g Intrauterine Device Start: 06-27-2018 End: 10-19-2021 Levonorgestrel (Mirena) 20 mcg/24 hr (5 years) intrauterine device Discontinued 1 INSERT INTRA-UTER ONCE June 27, 2018 1:00am October 19, 2021 1:21pm ondansetron 4 mg disintegrating oral tablet (12 sources) Serotonin-3 Receptor Antagonist Start: 06-13-2023 End: 10-24-2023 take 4 mg by mouth every eight hours as needed Ondansetron Discontinued 4 MG PO EVERY 8 HOURS NEEDED June 13, 2023 1:00am October 24, 2023 12:45pm Start: 09-28-2022 End: 11-01-2022 take 1 tablet by mouth four times daily ondansetron HCL 4 mg oral tablet 1 Tablet 4 times per day;nausea and vomiting for 0 days Quantity: 30 {Tablet} Refills: 1 Ordered: 01-Nov-2022 Cassidy Butcher LPN Start : 28-Sep-2022 End : 01-Nov-2022 Inactive Start: 08-18-2018 take 1 tablet by jennifer th every six hours as needed for nausea ondansetron orally disintegrating (ZOFRAN ODT) 4 mg disintegrating tablet Indications: Viral syndrome Take 1 tablet by mouth every 6 hours as needed for Nausea/Vomiting. 10 tablet 08/18/2018 Active Comment on above: Take 1 tablet by jennifer th every 6 hours as needed for [...] Active Start: 11-01-2022 take 1 tablet by jennifer th once daily at bedtime traZODone 50 [...] Problem Classification Problem Date Documented Date Episodic/Chronic Abdominal pain (1 source) Pain in pelvis; Translations: [Pelvic and perineal pain] 10-19-2021 Episodic Administrative/social admission (1 source) Patient encounter status; Translations: [Encounter for pre-employment examination] 11-29-2022 Episodic Anxiety disorders (20 sources) Mixed anxiety and depressive disorder; Translations: [Anxiety and depression] 03-14-2020 Chronic Comment on above: [place] med in [place] has been on med in [place] but has been long time--we will try escitalopram for anx/depression. prn hydroxyzine 25mg qhs insomnia, may also help with the anxiety--has seen counselor at [facility] in the past. Priscilla Lennon. We will send referralsuspect physical symptoms including jerky movements r/t probable panic attacks, high stress, untreated anx/depression. --she stopped escita lopram on own. prn hydroxyzine gave her rash.--has seen counselor at [facility] in the past. Priscilla Lennon. Waiting to get in (November 2022)-try SNRI - cymbalta, start low, titrate as neededsuspect physical symptoms including jerky movements r/t probable panic attacks, high stress, untreated anx/depression.--has been on med in past but has been long time --she stopped escita lopram on own. prn hydroxyzine gave her rash.--referred back to [facility] Priscilla Lennon. Waiting to get in (November 2022)-try SNRI - cymbalta, start low, titrate as needed. f/u 6 wks, make med adjustments as indicated. 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 ([employer])suspect physical symptoms including jerky movements r/t probable panic attacks, high stress, untreated anx/depression.--has been on med in past but has been long time Attention-deficit, conduct, and disruptive behavior disorders (1 source) Attention-deficit hyperactivity disorder, unspecified type; Translations: [Attention-deficit hyperactivity disorder, unspecified type] Onset: 10-15-2024 Chronic Conditions associated with dizziness or vertigo (18 sources) Vertigo; Translations: [Vertigo] 01-29-2021 Episodic Genitourinary symptoms and ill-defined conditions (2 sources) Dysuria; Translations: [Dysuria] Onset: 01-24-2025 01-24-2025 Episodic Headache; including migraine (15 sources) Pain [...] IBS with intermittent diarrhea. Nonspecific chest pain (20 sources) Chest pain; Translations: [Chest pain] Onset: 01-24-2025 01-29-2021 Episodic Nutritional deficiencies (20 sources) Vitamin [...] ; Translations: [Scar of face] 01-27-2022 Episodic Ovarian cyst (1 source) Cyst of ovary; Translations: [Unspecified ovarian cyst, right side] 06-21-2023 Episodic Residual codes; unclassified (20 sources) Body mass index 20-24 - normal; Translations: [BMI 23.0-23.9, adult] Resolved: 09-28-2022 01-29-2021 Episodic Residual codes; unclassified (16 sources) Uses contraception; Translations: [Uses control] 01-29-2021 Episodic Comment on above: jody solis s Residual codes; unclassified (17 sources) Insomnia; Translations: [Insomnia] 09-28-2022 Episodic Comment on above: working on sleep hyg iene, wants to try med now since more routine schedule Spondylosis; intervertebral disc disorders; other back problems (2 sources) Cervical radiculopathy; Translations: [Radiculopathy, cervical region] Onset: 01-24-2025 Episodic Substance-related disorders (20 sources) Smoker; Translations: [Smoker] 03-14-2020 Chronic Comment on above: stoped smoking recen tly but uses VAPE pen instead. stopped smoking ut u ses VAPE pen, caution with that as well. Syncope (20 sources) Vasovagal syncope; Translations: [Vasovagal syncope] 03-14-2020 Episodic Comment on above: blacks out, gets diz zin and sob, disoriented and blacks out, 4-5 years, worked up at [facility], saw senior environmental technician at [facility], no follow up with cardio, to eat [...] injuries and conditions due to external causes (2 sources) Motion sickness; Translations: [Motion sickness, initial encounter] Onset: 05-31-2022 05-31-2022 Episodic Residual codes; unclassified (2 sources) Other specified postprocedural states; Translations: [Other specified postprocedural states] Onset: 06-15-2022 Episodic Superficial injury; contusion (1 source) Foreign body of skin of forehead; Translations: [Superficial foreign body of other part of head, initial encounter] Episodic Unclassified (6 sources) Closed head injury with concussion Unclassified (12 sources) Rash Unclassified (6 sources) Flat wart Unclassified (6 sources) BMI 25.0-25.9,adult Unclassified (10 sources) Uses control; Translations: [Uses contraception] 03-14-2020 Comment on above: jody solis Hasrashawn s Unclassified (6 sources) Elevated MCV Unclassified (12 sources) BMI 26.0-26.9,adult Unclassified (6 sources) Visit for suture removal Unclassified (2 sources) BMI 23.0-23.9, adult Unclassified (2 sources) Orthostasis Unclassified (1 source) BMI 22.0-22.9, adult Unclassified (1 source) Forehead pain NEGATED: Highlighted row has been ruled out!Unclassified (13 sources) Problem Onset: 12-12-2019 03-14-2020 Results Test Name Value Interpretation Reference Range Facility Office Visit Reporton 2024 Office Visit Report [facility] [address] [place] [address] OFFICE VISIT Date of Service: 06/04/25 MR#: [id number] Acct: [id number] Patient: ANYI LOPEZ Rep #: [id number] : 2000 Provider: Dr. Jessi Casillas DO Age/Sex: 25/F Location: [facility] Status: Signed Intake Vital Signs 10/15/24 15:10 06/04/25 10:38 Height 5 ft 5 ft Weight: 131 lb 125 lb 1 oz BMI 25.5 24.4 BP 114/77 102/60 Blood Pressure Location Lt brachial Position Sitting Respiration 16 Pulse 51 L Pulse Source Monitor Intake Visit Reasons: PNOB Vitals Education Chief Complaint: in person PNOB Allergies hydroxyzine Allergy (Mild, Verified 06/04/25 09:12) Hives amoxicillin (Amoxicillin) Allergy (Verified 06/04/25 09:12) Unknown Medications ???Medication ???Instructions ???Recorded ???Confirmed ???Type docosahexaenoic acid 200 mg mg PO 06/04/25 06/04/25 History capsule ( DHA) Is last menstrual period known: Yes Post menopausal: No Patient : Yes Have you fallen in the past year?: No Nurse's Note: Pt here for secondary amenorrhea. Vitals WNL. PNOB questions completed. Problem list, allergies, and medications updated. First trimester ACOG education completed. Assessment and Plan Assessment and Plan Orders: Orders CBC W/Diff, Automated 06/04/25 O09.90 - Supervision of high risk , unspecified, unspecified trimester Type Screen 06/04/25 O09.90 - Supervision of high risk , unspecified, unspecified trimester Rubella IgG 06/04/25 O09.90 - Supervision of high risk , unspecified, unspecified trimester Hepatitis C Antibody 06/04/25 O09.90 - Supervision of high risk , unspecified, unspecified trimester Hepatitis B Surface Antigen 06/04/25 O09.90 - Supervision of high risk , unspecified, unspecified trimester Culture, Urine 06/04/25 O09.90 - Supervision of high risk , unspecified, unspecified trimester Syphilis Antibodies 06/04/25 O09.90 - Supervision of high risk , unspecified, unspecified trimester Chlamydia/GC ABY aptima 06/04/25 O09.90 - Supervision of high risk , unspecified, unspecified trimester HIV 06/04/25 O09.90 - Supervision of high risk , unspecified, unspecified trimester Urine Drug Screen 06/04/25 F12.90 - Cannabis use, unspecified, uncomplicated, O09.90 - Supervision of high risk , unspecified, unspecified trimester Clinical Quality Measures Falls Risk Screening/Assistive Devices Have you fallen in the past year?: No 06/08/25 0940 Date Jessi Summers Signature: Date (if applicable) [facility] Visit (UCTR ) ANYI SALOMON ([id number]) 2000 F Date Time Provider Department 01/24/25 2:00 PM MINH DURAND RUST During your visit today, we recorded the following information about you: Temperature Pulse Respiration Blood pressure 98 degrees 56/minute 20/minute 132/84 Last Period 01/14/25 Minh Durand APRN.HEALTH INSPECTOR FOOD 01/24/2025 6:23 PM Signed Subjective HPI Nontoxic-appearing 24-year-old female presents urgent care chief complaint left shoulder pain. Duration of symptoms today. Associated symptoms worsening left back shoulder and chest pain. Unknown of injury. Rates pain 7 out of 10. Nonreproducible with movements. Analgesics with no relief today. No fevers. Does have some abdominal pain that is more severe than baseline. No change in bowel or bladder habits. Past medical history prescription medications allergies reviewed .Patient presents with: Pain: Left shoulder, side down into ribs, x this am unsure of issue No past medical history on file. No past surgical history on file. ALLERGIES Amoxicillin MEDICATIONS benzonatate (TESSALON PERLE) 100 mg capsule Take 2 capsules by mouth three times daily as needed. (Patient not taking: Reported on 06/22/2019) ondansetron orally disintegrating (ZOFRAN ODT) 4 mg disintegrating tablet Take 1 tablet by mouth every 6 hours as needed for Nausea/Vomiting. (Patient not taking: Reported on 06/22/2019) albuterol HFA (PROVENTIL HFA, VENTOLIN HFA) 90 mcg/actuation inhaler Inhale 2 Puffs as instructed every 4 hours as needed. (Patient not taking: Reported on 01/24/2025) No family history on file. Social History Tobacco Use Smoking status: Never Smokeless tobacco: Never BP 132/84 Pulse (!) 56 Temp 36.7 ?C (98 ?F) Resp 20 LMP 01/14/2025 (Exact Date) SpO2 100% Review of Systems Constitutional: Negative for chills, fever and malaise/fatigue. HENT: Negative for congestion, ear discharge, ear pain, sinus pain and sore throat. Eyes: Negative for blurred vision, pain, discharge and redness. Respiratory: Negative for cough, hemoptysis, sputum production, shortness of breath, wheezing and stridor. Cardiovascular: Positive for chest pain. Gastrointestinal: Positive for nausea. Negative for abdominal pain, diarrhea and vomiting. Musculoskeletal: Positive for back pain. Negative for myalgias. Skin: Negative for itching and rash. Neurological: Negative for dizziness and headaches. Objective Physical Exam Constitutional: General: She is not in acute distress. Appearance: She is not toxic-appearing. HENT: Head: Normocephalic. Nose: Nose normal. Eyes: Pupils: Pupils are equal, round, and reactive to light. Cardiovascular: Rate and Rhythm: Normal rate. Pulmonary: Effort: Pulmonary effort is normal. No respiratory distress. Musculoskeletal: Cervical back: Normal range of motion. Skin: General: Skin is warm and dry. Comments: Pain to highlighted area. Pain is not reproducible. No erythema edema. No rashes. Neurological: General: No focal deficit present. Mental Status: She is alert. ASSESSMENT/PLAN: 1. Dysuria - ICD9: 788.1, ICD10: R30.0 (primary diagnosis) - HCG QUAL UR B/O 2. Chest pain, unspecified type - ICD9: 786.50, ICD10: R07.9 - XR CHEST 2V FRONTAL/LAT hCG negative. No acute findings on chest x-ray. Referred to ED for further evaluation at this time there is no clear etiology for back/chest discomfort. Minh Durand APRN.HEALTH INSPECTOR FOOD Allergies As of Date: 01/24/2025 Noted Allergy Reaction AMOXICILLIN 02/12/2013 2 - Rash Date Reviewed: 01/24/2025 Reviewed by: Minh Durand APRN.HEALTH INSPECTOR FOOD - Fully Assessed Reason for Visit: Pain [78] Cmt: Left shoulder, side down into ribs, x this am unsure of issue Primary Visit Diagnosis:Dysuria [R30.0] Other Visit Diagnosis:Chest pain, unspecified type [R07.9] Order(s):HCG QUAL UR B/O [[id number]] Order #: [id number] UA DIP,URINE HCG (POC) [[id number]] Order #: [id number]. #:[id number] XR CHEST 2V FRONTAL/LAT [[id number]] Order #: [id number] FUTURE Prescriptions as of 01/24/2025 - benzonatate (TESSALON PERLE) 100 mg capsule Take 2 capsules by mouth three times daily as needed. - ondansetron orally disintegrating (ZOFRAN ODT) 4 mg disintegrating tablet Take 1 tablet by mouth every 6 hours as needed for Nausea/Vomiting. - albuterol HFA (PROVENTIL HFA, VENTOLIN HFA) 90 mcg/actuation inhaler Inhale 2 Puffs as instructed every 4 hours as needed. Problem List As Of Date: 01/24/2025 (None) Level of Service: OFFICE/OUTPATIENT ESTABLISHED LOW MDM 20 MIN [16075] Encounter Status:Closed by MINH DURAND on 01/24/25 Normal [facility] UA DIP,URINE HCG (POC)on Beta HCG ( test) Ql (U) Negative Negative [facility] Comment on above: Location:[facility] [place], [address], [place], [address] [employer] (POCT) Internal QC [place] [facility] [address], [place], [address] [facility] POINT OF CARE [facility] XR CHEST 2V FRONTAL/LATon XR CHEST 2V FRONTAL/LAT * * *Final Report* * * DATE OF EXAM: Jan 24 2025 2:58PM WOX [id number] - XR CHEST 2V FRONTAL/LAT / PROCEDURE REASON: Chest pain, unspecified type * * * * Physician Interpretation * * * * EXAMINATION: CHEST RADIOGRAPH (2 VIEW FRONTAL and LATERAL) CLINICAL HISTORY: Chest pain, unspecified type MQ: XC2_6 EXAM DATE/TIME: 01/24/2025 2:58 PM COMPARISON: No relevant prior studies available. RESULT: Lines, tubes, and devices: None. Lungs and pleura: No consolidation. No lung mass. No pleural effusion. No pneumothorax. Cardiomediastinal silhouette: Normal cardiomediastinal silhouette. Bones and soft tissues: Unremarkable. IMPRESSION: No acute radiographic abnormality. Medical Staff Physician: KAMALA Transcribe Date/Time: Jan 24 2025 3:10P Dictated by : VIKTOR DIAZ MD This examination was interpreted and the report reviewed and electronically signed by: VIKTOR DIAZ MD on Jan 24 2025 3:10PM EST [id number] Normal [facility] XR Chest PA and Lateralon IMPRESSION: No acute radiographic abnormality. Medical Staff Physician: PSCB Transcribe Date/Time: Jan 24 2025 3:10P Dictated by : VIKTOR DIAZ MD This examination was interpreted and the report reviewed and electronically signed by: VIKTOR DIAZ MD on Jan 24 2025 3:10PM EST DIVISION OF RADIOLOGY * * *Final Report* * * DATE OF EXAM: Jan 24 2025 2:58PM WOX [id number] - XR CHEST 2V FRONTAL/LAT / PROCEDURE REASON: Chest pain, unspecified type * * * * Physician Interpretation * * * * EXAMINATION: CHEST RADIOGRAPH (2 VIEW FRONTAL & LATERAL) CLINICAL HISTORY: Chest pain, unspecified type MQ: XC2_6 EXAM DATE/TIME: 01/24/2025 2:58 PM COMPARISON: No relevant prior studies available. RESULT: Lines, tubes, and devices: None. Lungs and pleura: No consolidation. No lung mass. No pleural effusion. No pneumothorax. Cardiomediastinal silhouette: Normal cardiomediastinal silhouette. Bones and soft tissues: Unremarkable. DIVISION OF RADIOLOGY Provider, Kurt Lopez - 01/24/2025 * * *Final Report* * * DATE OF EXAM: Jan 24 2025 2:58PM WOX 5291 - XR CHEST 2V FRONTAL/LAT / PROCEDURE REASON: Chest pain, unspecified type * * * * Physician Interpretation * * * * EXAMINATION: CHEST RADIOGRAPH (2 VIEW FRONTAL & LATERAL) CLINICAL HISTORY: Chest pain, unspecified type MQ: [id number] EXAM DATE/TIME: 01/24/2025 2:58 PM COMPARISON: No relevant prior studies available. RESULT: Lines, tubes, and devices: None. Lungs and pleura: No consolidation. No lung mass. No pleural effusion. No pneumothorax. Cardiomediastinal silhouette: Normal cardiomediastinal silhouette. Bones and soft tissues: Unremarkable. IMPRESSION IMPRESSION: No acute radiographic abnormality. Medical Staff Physician: PSCB Transcribe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 RoadDublin [place] [id number] Hemoglobin (Bld) [Mass/Vol] 13.9 g/dL Normal 11.1-15.9 [facility] Work Phone: Comment on above: PATIENT NOT FASTINGP ERFORMED BY: CB [facility] Yvbymh7435 [address] RoadDublin [place] [id number] Immature granulocytes (Bld) [#/Vol] 0.0 {x10E3/uL} Normal 0.0-0.1 [facility] Work Phone: Comment on above: PATIENT NOT FASTINGP ERFORMED BY: CB [facility] Dkzcmc1707 [address] RoadDublin [place] [id number] Immature granulocytes (Bld) [#/Vol] 0.0 10*3/uL Normal 0.0-0.1 [facility]; [facility] Work Phone: Comment on above: PATIENT NOT FASTINGP ERFORMED BY: CB [facility] Plwfhn4838 [address] RoadDublin [place] [id number] Immature granulocytes/100 WBC (Bld) 0 % Normal [facility] Work Phone: Comment on above: PATIENT NOT FASTINGP ERFORMED BY: CB [facility] Hzvhrs7991 [address] RoadDublin [place] [id number] Lymphocytes (Bld) [#/Vol] 2.6 {x10E3/uL} Normal 0.7-3.1 [facility] Work Phone: Comment on above: PATIENT NOT FASTINGP ERFORMED BY: CB [facility] Ppljda2798 [address] RoadDublin [place] [id number] Lymphocytes (Bld) [#/Vol] 2.6 10*3/uL Normal 0.7-3.1 [facility]; [facility] Work Phone: Comment on above: PATIENT NOT FASTINGP ERFORMED BY: CB [facility] Gzvlxn9781 [address] RoadDublin [place] [id number] Lymphocytes/100 WBC (Bld) 42 % Normal [facility] Work Phone: Comment on above: PATIENT NOT FASTINGP ERFORMED BY: CB [facility] Oozmvd8420 [address] RoadDublin [place] [id number] MCH (RBC) [Entitic mass] 32.7 pg Normal 26.6-33.0 [facility] Work Phone: Comment on above: PATIENT NOT FASTINGP ERFORMED BY: CB [facility] Iclmiu8771 [address] RoadDublin [place] [id number] MCHC (RBC) [Mass/Vol] 32.2 g/dL Normal 31.5-35.7 Com prehensive Internal Medicine Work Phone: Comment on above: PATIENT NOT FASTINGP ERFORMED BY: CB [facility] Jzsgmr1270 [address] RoadDublin [place] [id number] MCV (RBC) [Entitic vol] 102 fL Abnormal 79-97 [facility] Work Phone: Comment on above: PATIENT NOT FASTINGP ERFORMED BY: CB [facility] Vutfcz7198 [address] RoadD[address] [place] [id number] Monocytes (Bld) [#/Vol] 0.4 {x10E3/uL} Normal 0.1-0.9 [facility] Work Phone: Comment on above: PATIENT NOT FASTINGP ERFORMED BY: CB [facility] Femypt29[address] [place] [id number] Monocytes (Bld) [#/Vol] 0.4 10*3/uL Normal 0.1-0.9 [facility]; [facility] Work Phone: Comment on above: PATIENT NOT FASTINGP ERFORMED BY: CB [facility] Owjbne1036 [address] RoadDublin [place] [id number] Monocytes/100 WBC (Bld) 7 % Normal [facility] Work Phone: Comment on above: PATIENT NOT FASTINGP ERFORMED BY: CB [facility] Vylnib6619 [address] RoadD[address] [place] [id number] Neutrophils (Bld) [#/Vol] 3.0 {x10E3/uL} Normal 1.4-7.0 [facility] Work Phone: Comment on above: PATIENT NOT FASTINGP ERFORMED BY: CB [facility] Uwjqxb4[address] RoadD[address] [place] [id number] Neutrophils (Bld) [#/Vol] 3.0 10*3/uL Normal 1.4-7.0 [facility]; [facility] Work Phone: Comment on above: PATIENT NOT FASTINGP ERFORMED BY: CB [facility] Ebfsqj0771 [address] RoadD[address] [place] [id number] Neutrophils/100 WBC (Bld) 48 % Normal [facility] Work Phone: Comment on above: PATIENT NOT FASTINGP ERFORMED BY: CB [facility] Fejtxv9862 [address] RoadD[address] [place] [id number] Platelets (Bld) [#/Vol] 371 {x10E3/uL} Normal 150-450 [facility] Work Phone: Comment on above: PATIENT NOT FASTINGP ERFORMED BY: CB [facility] Jguhes9274 [address] RoadDublin [place] [id number] Platelets (Bld) [#/Vol] 371 10*3/uL Normal 150-450 [facility]; [facility] Work Phone: Comment on above: PATIENT NOT FASTINGP ERFORMED BY: CB [facility] Hludci5679 [address] RoadDublin [place] [id number] RBC (Bld) [#/Vol] 4.25 {x10E6/uL} Normal 3.77-5.28 [facility] Internal Medicine Work Phone: Comment on above: PATIENT NOT FASTINGP ERFORMED BY: CB [facility] Kpfyrb3640 [address] RoadDublin [place] [id number] RBC (Bld) [#/Vol] 4.25 10*6/uL Normal 3.77-5.28 [facility]; [facility] Work Phone: Comment on above: PATIENT NOT FASTINGP ERFORMED BY: CB [facility] Quxzyr9336 [address] RoadDublin [place] [id number] WBC (Bld) [#/Vol] 6.2 {x10E3/uL} Normal 3.4-10.8 [facility] Work Phone: Comment on above: PATIENT NOT FASTINGP ERFORMED BY: CB [facility] Lyokcg7367 [address] RoadDublin [place] [id number] WBC (Bld) [#/Vol] 6.2 10*3/uL Normal 3.4-10.8 [facility]; [facility] Work Phone: Comment on above: PATIENT NOT FASTINGP ERFORMED BY: CB [facility] Ivmzvn5706 [address] RoadD[address] [place] [id number] Metabolic Panel, Comprehensi ve ([id number])Ordered By: Medical Examiner on 12-12-2019 Albumin [Mass/Vol] 5.0 g/dL Normal 3.9-5.0 [facility] Work Phone: Comment on above: PATIENT NOT FASTINGP ERFORMED BY: CB [facility] Hleepq3863 [address] RoadDublin [place] [id number] Albumin/Globulin [Mass ratio] 2.2 {ratio} Normal 1.2-2.2 [facility] Work Phone: Comment on above: PATIENT NOT FASTINGP ERFORMED BY: CB [facility] Kzsksq7901 [address] RoadD[address] [place] [id number] ALP [Catalytic activity/Vol] 54 [iU]/L Normal 39-117 [facility] Work Phone: Comment on above: PATIENT NOT FASTINGP ERFORMED BY: CB [facility] Eioekj6[address] RoadD[address] [place] [id number] ALP [Catalytic activity/Vol] 54 U/L Normal 39-117 [facility]; [facility] Work Phone: Comment on above: PATIENT NOT FASTINGP ERFORMED BY: CB [facility] Gawlls3196 [address] RoadDublin [place] [id number] ALT [Catalytic activity/Vol] 13 [iU]/L Normal 0-32 [facility] Work Phone: Comment on above: PATIENT NOT FASTINGP ERFORMED BY: CB [facility] Fuzoco7964 [address] RoadDublin [place] [id number] ALT [Catalytic activity/Vol] 13 U/L Normal 0-32 [facility]; [facility] Work Phone: Comment on above: PATIENT NOT FASTINGP ERFORMED BY: CB [facility] Nnblcm6983 [address] RoadDublin [place] [id number] AST [Catalytic activity/Vol] 13 [iU]/L Normal 0-40 [facility] Work Phone: Comment on above: PATIENT NOT FASTINGP ERFORMED BY: CB [facility] Ifjwzf8172 [address] RoadD[address] [place] [id number] AST [Catalytic activity/Vol] 13 U/L Normal 0-40 [facility]; [facility] Work Phone: Comment on above: PATIENT NOT FASTINGP ERFORMED BY: CB [facility] Scfodh3886 [address] RoadD[address] [place] [id number] Bilirubin [Mass/Vol] 0.4 mg/dL Normal 0.0-1.2 [facility] Work Phone: Comment on above: PATIENT NOT FASTINGP ERFORMED BY: CB [facility] Rukclw7314 [address] RoadD[address] [place] [id number] Calcium [Mass/Vol] 9.4 mg/dL Normal 8.7-10.2 [facility] Internal [facility] Work Phone: Comment on above: PATIENT NOT FASTINGP ERFORMED BY: CB [facility] Mkygge4568 [address] RoadD[address] [place] [id number] Chloride [Moles/Vol] 102 mmol/L Normal 96-106 [facility]erens[facility] Work Phone: Comment on above: PATIENT NOT FASTINGP ERFORMED BY: CB [facility] Skbvxc8368 [address] RoadD[address] [place] [id number] CO2 [Moles/Vol] 22 mmol/L Normal 20-29 [facility] Internal Medicine Work Phone: Comment on above: PATIENT NOT FASTINGP ERFORMED BY: CB [facility] Vssgzp1312 [address] RoadD[address] [place] [id number] Creatinine [Mass/Vol] 0.74 mg/dL Normal 0.57-1.00 [facility] Internal Medicine Work Phone: Comment on above: PATIENT NOT FASTINGP ERFORMED BY: CB [facility] Ibpstn4039 [address] RoadD[address] [place] [id number] GFR/1.73 sq M predicted among blacks CKD-EPI (S/P/Bld) [Vol rate/Area] 134 mL/min/1.73 Normal [facility] Internal Medicine Work Phone: Comment on above: PATIENT NOT FASTINGP ERFORMED BY: CB [facility] Ffecim7719 [address] RoadD[address] [place] [id number] GFR/1.73 sq M predicted among non-blacks CKD-EPI (S/P/Bld) [Vol rate/Area] 116 mL/min/1.73 Normal [facility] Internal Medicine Work Phone: Comment on above: PATIENT NOT FASTINGP ERFORMED BY: PRIYANKA [facility] Fegdzk8379 [address] [facility] [id number] Globulin (S) [Mass/Vol] 2.3 g/dL Normal 1.5-4.5 [facility] Internal Medicine Work Phone: Comment on above: PATIENT NOT FASTINGP ERFORMED BY: CB [facility] Cbbsaz6174 [address] RoadAt[facility] Health Cabarrus [id number] Glucose [Mass/Vol] 89 mg/dL Normal 65-99 [facility] Internal Medicine Work Phone: Comment on above: PATIENT NOT FASTINGP ERFORMED BY: PRIYANKA [facility] Wcpwdf[address] [facility] [id number] Potassium [Moles/Vol] 4.3 mmol/L Normal 3.5-5.2 [facility] Work Phone: Comment on above: PATIENT NOT FASTINGP ERFORMED BY: PRIYANKA [facility] Sqkcxt[address] [facility] [id number] Protein [Mass/Vol] 7.3 g/dL Normal 6.0-8.5 [facility] Internal Medicine Work Phone: Comment on above: PATIENT NOT FASTINGP ERFORMED BY: CB [facility] Ztasgg[address]19 [address] [facility]in [place] [id number] Sodium [Moles/Vol] 139 mmol/L Normal 134-144 [facility] Internal Medicine Work Phone: Comment on above: PATIENT NOT FASTINGP ERFORMED BY: PRIYANKA [facility] Buquch[address] [facility]in [place] [id number] Urea nitrogen [Mass/Vol] 10 mg/dL Normal 6-20 [facility] Internal Medicine Work Phone: Comment on above: PATIENT NOT FASTINGP ERFORMED BY: PRIYANKA [facility] Qjcahh7385 [address] [facility]in [place] [id number] Urea nitrogen/Creatinine [Mass ratio] 14 mg/mg Normal 9-23 [facility] Work Phone: Comment on above: PATIENT NOT FASTINGP ERFORMED BY: [facility] Wluekn[address] [facility] [place] [id number] RPR (RAPID PLASMA REAGIN) ([id number])Ordered By: Medical Examiner on 12-12-2019 Reagin Ab RPR Ql (S) Non Reactive Normal [facility] Internal Medicine Work Phone: Comment on above: PATIENT NOT FASTINGP ERFORMED BY: CB [facility] Dgfdqf[address] [facility] [place] [id number] Reagin Ab RPR Ql (S) Non-Reactive Normal [facility]; [facility] Internal Medicine Work Phone: Comment on above: PATIENT NOT FASTINGP ERFORMED BY: [facility] Aqpzos4905 [facility] [id number] SED RATE ERYTHROCYTE ([id number]) Ordered By: Medical Examiner on 12-12-2019 ESR (Bld) [Velocity] 2 mm/h Normal 0-32 Comp [facility] Internal Medicine Work Phone: Comment on above: PATIENT NOT FASTINGP ERFORMED BY: CB [facility] Wzgpvf0790 [address] [facility]bl[facility] [place] [id number] TSH (THYROID STIMULATING HOR NATY) ([id number])Ordered By: Medical Examiner on 12-12-2019 TSH Qn 1.440 {uIU/mL} Normal 0.450-4.500 [facility] Internal Medicine Work Phone: Comment on above: PATIENT NOT FASTINGP ERFORMED BY: CB [facility] Brwuau[address] [facility]in [place] [id number]; NOTHING URGENT __ REVIEW ALL AT NOVEMBER APPT Progress Noteon 11-21-2018 Charge Out Clerk Authentication Interface Message Text Patient ID: Anyi Salomon is a 18 y.o. female. Her chief [...] Moderate Non-Hemolyzed (A) Negative POCT Urine Specific [place] 1.010 (A) 1.030 - 1.035 POCT Ketones, Urine Negative Negative mg/dl POCT Glucose, Urine Negative Negative mg/dl Normal [facility] Urine Cultureon 11-21-2018 Bacteria identified Cx [...] workup, call Microbiology within three days. Normal [facility] Comment on above: Performed By: #### U CAYETANO #### [facility] [place] [address] Bordetella pertussis/paraper tussis PCRon 09-15-2018 Bordetella pertussis/parapertuss is PCR Is this specimen being sent to [...] for Bordetella pertussis and the insertion sequence [id number] of Bordetella parapertussis on the [employer] analyzer. Normal [facility] Comment on above: Performed By: #### B PPT #### [facility] [address] [address] Progress Noteon 09-15-2018 Charge Out Clerk Authentication Interface Message Text Patient ID: Anyi Salomon is a 18 y.o. female. Her chief [...] the office Neurological: She is alert. Normal [facility] Progress Noteon 08-31-2018 Charge Out Clerk Authentication Interface Message Text Patient ID: Anyi Salomon is a 18 y.o. female. Her chief [...] the office Neurological: She is alert. Normal [facility] Vital Signs Date Time Vital Sign Value Performing Clinician Facility 01-24-2025 14:10-0400 Body temperature 98.01 [degF] Minh Pendlebury OVERHEAD WORKER.HEALTH INSPECTOR FOOD Work Phone: [facility] 01-24-2025 14:10-0400 Diastolic blood pressure 84 mm[Hg] Minh Pendlebury OVERHEAD WORKER.HEALTH INSPECTOR FOOD Work Phone: [facility] 01-24-2025 14:10-0400 Heart rate 56 /min [facility] OVERHEAD WORKER.HEALTH INSPECTOR FOOD Work Phone: [facility] 01-24-2025 14:10-0400 Respiratory rate 20 /min [facility] OVERHEAD WORKER.HEALTH INSPECTOR FOOD Work Phone: [facility] 01-24-2025 14:10-0400 SaO2% (BldA) [Mass fraction] 100 % [facility] OVERHEAD WORKER.HEALTH INSPECTOR FOOD Work Phone: [facility] 01-24-2025 14:10-0400 Systolic blood pressure 132 mm[Hg] Minh Pendlebury OVERHEAD WORKER.HEALTH INSPECTOR FOOD Work Phone: [facility] 10-24-2023 12:44-0400 Body temperature 98 [degF] ACADEMIC AFFAIRS SPECIALIST-C Claire Jeffries ACADEMIC AFFAIRS SPECIALIST Work Phone: [facility] 10-24-2023 12:44-0400 Diastolic blood pressure 60 mm[Hg] ACADEMIC AFFAIRS SPECIALIST-C Claire Kua ACADEMIC AFFAIRS SPECIALIST Work Phone: [facility] 10-24-2023 12:44-0400 Heart rate 61 /min ACADEMIC AFFAIRS SPECIALIST-C Claire Kua ACADEMIC AFFAIRS SPECIALIST Work Phone: [facility] 10-24-2023 12:44-0400 Respiratory rate 16 /min ACADEMIC AFFAIRS SPECIALIST-C Claire Kua ACADEMIC AFFAIRS SPECIALIST Work Phone: [facility] 10-24-2023 12:44-0400 SaO2% (BldA) [Mass fraction] 100 % ACADEMIC AFFAIRS SPECIALIST-C Claire Kua ACADEMIC AFFAIRS SPECIALIST Work Phone: [facility] 10-24-2023 12:44-0400 Systolic blood pressure 112 mm[Hg] ACADEMIC AFFAIRS SPECIALIST-C Claire Nesha ACADEMIC AFFAIRS SPECIALIST Work Phone: [facility] 12-21-2022 10:17040 Body temperature 98.01 [degF] Krislyn Aberegg PA Work Phone: [facility] 12-21-2022 10:17-040 Body weight 57.06 kg Krislyn Aberegg PA Work Phone: [facility] 12-21-2022 10:17-0400 Diastolic blood pressure 74 mm[Hg] Krislyn Aberegg PA Work Phone: [facility] 12-21-2022 10:17-0400 Heart rate 70 /min Krislyn Aberegg PA Work Phone: [facility] 12-21-2022 10:17-0400 Respiratory rate 18 /min Krislyn Aberegg PA Work Phone: [facility] 12-21-2022 10:17-0400 SaO2% (BldA) [Mass fraction] 98 % Krislyn Aberegg PA Work Phone: [facility] 12-21-2022 10:17-0400 Systolic blood pressure 104 mm[Hg] Krislyn Aberegg PA Work Phone: [facility] 11-01-2022 11:12-0400 Body height 153.03 cm Cassidy Butcher LPN [facility]; [facility] Work Phone: 11-01-2022 11:12-0400 Body mass index (BMI) [Ratio] 23.82 kg/m2 Cassidy Shirleyrb POSTBED STITCHER [facility]; [facility] Work Phone: 11-01-2022 11:12-0400 Body surface area Derived from formula 1.52 m2 Cassidy Guadalupe POSTBED STITCHER [facility]; [facility] Work Phone: 11-01-2022 11:12-0400 Body temperature 98.3 [degF] Cassidy Slarb POSTBED STITCHER [facility]; [facility] Work Phone: Comment on above: Method: Temporal 11-01-2022 11:12-0400 Body weight 55.79 kg Cassidy Slarb POSTBED STITCHER [facility]; [facility] Work Phone: 11-01-2022 11:12-0400 Diastolic blood pressure 68 mm[Hg] Cassidy Slarb POSTBED STITCHER [facility]; [facility] Work Phone: Comment on above: Patient Position: Sitting; Cuff Location : Left Arm; Cuff Size: Standard 11-01-2022 11:12-0400 Heart rate 65 /min Cassidy Slarb POSTBED STITCHER [facility]; [facility] Work Phone: Comment on above: Pattern: Regular 11-01-2022 11:12-0400 Respiratory rate 17 /min Cassidy Slarb POSTBED STITCHER [facility]; [facility] Work Phone: Comment on above: Pattern: Unlabored 11-01-2022 11:12-0400 SaO2% (BldA) [Mass fraction] 99 % Cassidy Slarb POSTBED STITCHER [facility]; [facility] Work Phone: Comment on above: Room air 11-01-2022 11:12-0400 Systolic blood pressure 122 mm[Hg] Cassidy Slarb POSTBED STITCHER [facility]; [facility] Work Phone: Comment on above: Patient Position: Sitting; Cuff Location : Left Arm; Cuff Size: Standard 09-28-2022 11:17-0500 Body height 153.03 cm Cassidy Slarb POSTBED STITCHER [facility]; [facility] Work Phone: 09-28-2022 11:17-0500 Body mass index (BMI) [Ratio] 23.44 kg/m2 Cassidy Slarb POSTBED STITCHER [facility]; [facility] Work Phone: 09-28-2022 11:17-0500 Body surface area Derived from formula 1.51 m2 Cassidy Slarb POSTBED STITCHER [facility]; [facility] Work Phone: 09-28-2022 11:17-0500 Body temperature 98.3 [degF] Cassidy Shirleyrb POSTBED STITCHER [facility]; [facility] Work Phone: Comment on above: Method: Temporal 09-28-2022 11:17-0500 Body weight 54.89 kg Cassidy Watsonrb POSTBED STITCHER [facility]; [facility] Work Phone: 09-28-2022 11:17-0500 Diastolic blood pressure 62 mm[Hg] Cassidy Slarb POSTBED STITCHER [facility]; [facility] Work Phone: Comment on above: Patient Position: Sitting; Cuff Location : Left Arm; Cuff Size: Standard 09-28-2022 11:17-0500 Heart rate 65 /min Cassidy Slarb POSTBED STITCHER [facility]; [facility] Work Phone: Comment on above: Pattern: Regular 09-28-2022 11:17-0500 Respiratory rate 16 /min Cassidy Slarb POSTBED STITCHER [facility]; [facility] Work Phone: Comment on above: Pattern: Unlabored 09-28-2022 11:17-0500 SaO2% (BldA) [Mass fraction] 99 % Cassidy Slarb POSTBED STITCHER [facility]; [facility] Work Phone: Comment on above: Room air 09-28-2022 11:17-0500 Systolic blood pressure 114 mm[Hg] Cassidy Slarb POSTBED STITCHER [facility]; [facility] Work Phone: Comment on above: Patient Position: Sitting; Cuff Location : Left Arm; Cuff Size: Standard 01-27-2022 09:20-0400 Body height 153.03 cm Cassidy Slarb POSTBED STITCHER [facility]; [facility] Work Phone: 01-27-2022 09:20-0400 Body mass index (BMI) [Ratio] 22.85 kg/m2 Cassidy Slarb POSTBED STITCHER [facility]; [facility] Work Phone: 01-27-2022 09:20-0400 Body surface area Derived from formula 1.5 m2 Cassidy Slarb POSTBED STITCHER [facility]; [facility] Work Phone: 01-27-2022 09:20-0400 Body temperature 97.1 [degF] Cassidy Slarb POSTBED STITCHER [facility]; [facility] Work Phone: 01-27-2022 09:20-0400 Body weight 53.52 kg Cassidy Watsonrb POSTBED STITCHER [facility]; [facility] Work Phone: 01-27-2022 09:20-0400 Diastolic blood pressure 72 mm[Hg] Cassidy Slarb POSTBED STITCHER [facility] Work Phone: Comment on above: Patient Position: Sitting; Cuff Location : Left Arm; Cuff Size: Standard 01-27-2022 09:20-0400 Heart rate 71 /min Cassidy Slarb POSTBED STITCHER [facility] Work Phone: Comment on above: Pattern: Regular 01-27-2022 09:20-0400 Respiratory rate 16 /min Cassidy Slarb POSTBED STITCHER [facility] Work Phone: Comment on above: Pattern: Unlabored 01-27-2022 09:20-0400 SaO2% (BldA) [Mass fraction] 99 % Cassidy Slarb POSTBED STITCHER [facility] Work Phone: Comment on above: Room air 01-27-2022 09:20-0400 Systolic blood pressure 116 mm[Hg] Cassidy Slarb POSTBED STITCHER [facility] Work Phone: Comment on above: Patient Position: Sitting; Cuff Location : Left Arm; Cuff Size: Standard 01-29-2021 14:13-0400 Body height 153.03 cm Casi Laly DO Work Phone: [facility] Work Phone: 01-29-2021 14:13-0400 Body mass index (BMI) [Ratio] 23.06 kg/m2 Casi Laly DO Work Phone: [facility] Work Phone: 01-29-2021 14:13-0400 Body surface area Derived from formula 1.5 m2 Casi Ruffin DO Work Phone: [facility] Work Phone: 01-29-2021 14:13-0400 Body temperature 97.3 [degF] Casi Ruffin DO Work Phone: [facility]; [facility] Work Phone: Comment on above: Method: Infrared 01-29-2021 14:13-0400 Body weight 54 kg Casi Ruffin DO Work Phone: [facility] Work Phone: 01-29-2021 14:13-0400 Diastolic blood pressure 70 mm[Hg] Casi Ruffin DO Work Phone: [facility]; [facility] Work Phone: Comment on above: Patient Position: Sitting; Cuff Location : Left Arm; Cuff Size: Standard 01-29-2021 14:13-0400 Heart rate 57 /min Casi Ruffin DO Work Phone: [facility] Work Phone: Comment on above: Pattern: Regular 01-29-2021 14:13-0400 Respiratory rate 18 /min Casi Ruffin DO Work Phone: [facility]; [facility] Work Phone: Comment on above: Pattern: Unlabored 01-29-2021 14:13-0400 SaO2% (BldA) [Mass fraction] 94 % Casi Ruffin DO Work Phone: [facility]; [facility] Work Phone: Comment on above: Room air 01-29-2021 14:13-0400 Systolic blood pressure 122 mm[Hg] Casi Ruffin DO Work Phone: [facility]; [facility] Work Phone: Comment on above: Patient Position: Sitting; Cuff Location : Left Arm; Cuff Size: Standard 03-18-2020 08:20-0400 BMI (Body Mass Index) 26.15 kg/m2 Claire Jeffries [facility] Work Phone: 03-18-2020 08:20-0400 Body weight 61.25 kg Claire Jeffries [facility] Work Phone: 03-18-2020 08:20-0400 BSA (Body Surface Area) 1.58 m2 Claire [facility] Medicine Work Phone: 03-18-2020 08:20-0400 Height 153.03 cm Claire Jeffries [facility] Work Phone: 03-14-2020 07:29-0400 BMI (Body Mass Index) 26.15 kg/m2 Nimo Narvaez [facility] Medicine Work Phone: 03-14-2020 07:29-0400 Body Temperature 97.1 [degF] Nimo Narvaez PROFILING MACHINE OPERATOR [facility] Work Phone: Comment on above: Method: Temporal 03-14-2020 07:29-0400 Body weight 61.25 kg Nimo Narvaez [facility] Work Phone: 03-14-2020 07:29-0400 BP Diastolic 68 mm[Hg] Nimo Narvaez [facility] Work Phone: Comment on above: Patient Position: Sitting; Cuff Location : Left Arm; Cuff Size: Standard 03-14-2020 07:29-0400 BP Systolic 107 mm[Hg] Nimo Narvaez [facility] Work Phone: Comment on above: Patient Position: Sitting; Cuff Location : Left Arm; Cuff Size: Standard 03-14-2020 07:29-0400 BSA (Body Surface Area) 1.58 m2 Nimo Narvaez PROFILING MACHINE OPERATOR [facility] Work Phone: 03-14-2020 07:29-0400 Height 153.03 cm Nimo Narvaez PROFILING MACHINE OPERATOR [facility] Work Phone: 03-14-2020 07:29-0400 Pulse (Heart Rate) 66 /min Nimo Narvaez PROFILING MACHINE OPERATOR Comprehens [facility] Internal Medicine Work Phone: Comment on above: Pattern: Regular 03-14-2020 07:29-0400 Pulse Oximetry 99 % Claire Jeffries [facility] Work Phone: Comment on above: Room air 03-14-2020 07:29-0400 Respiratory Rate 16 /min Nimo Narvaez CMA [facility] Work Phone: Comment on above: Pattern: Unlabored 03-14-2020 07:29-0400 SaO2% (BldA) [Mass fraction] 99 % Nimo Narvaez [facility] Work Phone: Comment on above: Room air 12-18-2019 08:42-0400 BMI (Body Mass Index) 26.15 kg/m2 Eber Enriquez [facility] Internal Medicine Work Phone: 12-18-2019 08:42-0400 Body Temperature 97.3 [degF] Eber Enriquez [facility] Internal Medicine Work Phone: Comment on above: Method: Temporal 12-18-2019 08:42-0400 Body weight 61.25 kg Eber Enriquez POSTBED STITCHER [facility] Internal Medicine Work Phone: 12-18-2019 08:42-0400 BP Diastolic 82 mm[Hg] Eber Enriquez [facility] Internal Medicine Work Phone: Comment on above: Patient Position: Sitting; Cuff Location : Left Arm; Cuff Size: Standard 12-18-2019 08:42-0400 BP Systolic 110 mm[Hg] Eber Enriquez [facility] Internal Medicine Work Phone: Comment on above: Patient Position: Sitting; Cuff Location : Left Arm; Cuff Size: Standard 12-18-2019 08:42-0400 BSA (Body Surface Area) 1.58 m2 Eber Enriquez POSTBED STITCHER [facility] Internal Medicine Work Phone: 12-18-2019 08:42-0400 Height 153.03 cm Eber Enriquez [facility] Internal Medicine Work Phone: 12-18-2019 08:42-0400 Pulse (Heart Rate) 73 /min Eber Enriquez LPN [facility] Work Phone: Comment on above: Pattern: Regular 12-18-2019 08:42-0400 Pulse Oximetry 98 % Claire Nesha [facility] Internal Medicine Work Phone: Comment on above: Room air 12-18-2019 08:42-0400 Respiratory Rate 16 /min Eber Enriquez LPN [facility] Internal Medicine Work Phone: Comment on above: Pattern: Unlabored 12-18-2019 08:42-0400 SaO2% (BldA) [Mass fraction] 98 % Eber Enriquez LPN [facility]; [facility] Work Phone: Comment on above: Room air 12-12-2019 09:31-0400 BMI (Body Mass Index) 25.19 kg/m2 Eber Enriquez LPN [facility] Internal Medicine Work Phone: 12-12-2019 09:31-0400 Body Temperature 97.6 [degF] Eber Enriquez LPN [facility] Internal Medicine Work Phone: Comment on above: Method: Temporal 12-12-2019 09:31-0400 Body weight 58.99 kg Eber Enriquez LPN [facility] Internal Medicine Work Phone: 12-12-2019 09:31-0400 BP Diastolic 82 mm[Hg] Eber Enriquez LPN [facility] Internal Medicine Work Phone: Comment on above: Patient Position: Sitting; Cuff Location : Left Arm; Cuff Size: Standard 12-12-2019 09:31-0400 BP Systolic 110 mm[Hg] Eber Enriquez LPN [facility] Internal Medicine Work Phone: Comment on above: Patient Position: Sitting; Cuff Location : Left Arm; Cuff Size: Standard 12-12-2019 09:31-0400 BSA (Body Surface Area) 1.56 m2 Eber Enriquez LPN [facility] Internal Medicine Work Phone: 12-12-2019 09:31-0400 Height 153.03 cm Eber Enriquez LPN [facility] Internal Medicine Work Phone: 12-12-2019 09:31-0400 Pulse (Heart Rate) 99 /min Eber Enriquez LPN [facility] Work Phone: Comment on above: Pattern: Regular 12-12-2019 09:31-0400 Pulse Oximetry 98 % Claire Jeffries [facility] Internal Medicine Work Phone: [...] Date Encounter Type Care Provider Facility Start: 06-04-2025 End: 06-04-2025 ambulatory Casi Ruffin Facility:[facility] Start: 03-25-2025 ambulatory Casi Ruffin Facilit y:[facility] Start: 01-24-2025 End: 01-24-2025 Emergency department patient visit DR LEE VERGARA MD [facility] Start: 01-24-2025 End: 01-24-2025 Subsequent hospital visit by physician Xr [facility] Work Phone: Radiology Comment on above: Chest pain, unspecif ied type [R07.9] Start: 01-24-2025 End: 01-24-2025 Follow-up encounter Minh Durand APRN.CNP Work Phone: [facility] Start: 01-24-2025 End: 01-24-2025 Office outpatient visit 15 minutes Minh Durand APRN.CNP Work Phone: [facility] Comment on above: Dysuria (Primary Dx) ; Chest pain, unspecified type Start: 01-24-2025 End: 01-24-2025 ambulatory MINH DURAND Facility:[facility] Start: 10-15-2024 End: 10-15-2024 ambulatory Casi Ruffin Facility:[facility] Start: 11-29-2023 End: 11-29-2023 ambulatory ACADEMIC AFFAIRS SPECIALIST-C Claire Jeffries ACADEMIC AFFAIRS SPECIALIST Work Phone: [facility] Work Phone: Start: 11-29-2023 End: 11-29-2023 Patient encounter procedure ACADEMIC AFFAIRS SPECIALIST-C Claire Ciesa ACADEMIC AFFAIRS SPECIALIST Work Phone: [facility] Work Phone: Start: 10-24-2023 End: 10-24-2023 Patient encounter procedure ACADEMIC AFFAIRS SPECIALIST-C Claire Jeffries ACADEMIC AFFAIRS SPECIALIST Work Phone: [facility] Work Phone: Start: 12-21-2022 End: 12-21-2022 Patient encounter procedure Joe Heck PA Work Phone: [facility] Comment on above: Acute conjunctivitis of both eyes, unspecified acute conjunctivitis type (Primary Dx) Start: 11-01-2022 ambulatory Radha Stoddard CNP [facility] Start: 11-01-2022 End: 11-08-2022 Office outpatient visit 15 minutes Radha Stoddard CNP Work Phone: [facility] Start: 11-01-2022 Review Radha Stoddard CNP Work Phone: [facility] Start: 10-19-2022 End: 10-19-2022 ambulatory CHRIS BRADY [facility] Start: 10-19-2022 End: 10-19-2022 Office outpatient visit 10 minutes Chris Brady MD Work Phone: [facility] Comment on above: Foreign body in skin of forehead (Primary Dx) Start: 10-12-2022 End: 10-12-2022 Annotation/Addendum Radha Stoddard CNP Work Phone: [facility] Start: 10-04-2022 Telephone encounter Chris oquendo MD Work Phone: [facility] Comment on above: Missed Appointment ( R/s 09/21) Start: 09-28-2022 End: 09-28-2022 Office outpatient visit 15 minutes Radha Stoddard CNP Work Phone: [facility] Start: 09-28-2022 Review Radha Stoddard CNP Work Phone: [facility] Start: 06-15-2022 End: 06-15-2022 [facility] Start: 06-09-2022 End: 06-09-2022 ambulatory LAUREL PIERCE [facility] Start: 06-04-2022 End: 06-04-2022 ambulatory [facility] Start: 05-31-2022 End: 06-01-2022 ambulatory [facility] Start: 01-27-2022 End: 01-27-2022 Office outpatient visit 10 minutes Claire Espinoza Internal [facility] Start: 01-29-2021 End: 01-29-2021 Office outpatient visit 25 minutes Claire Jeffries HEALTH INSPECTOR FOOD Work Phone: [facility] Start: 03-18-2020 Review Claire pascual [facility] Start: 03-14-2020 End: 03-14-2020 Phone Encounter Claire Espinoza Programming Development Project Manager al Medicine Start: 03-14-2020 End: 03-14-2020 Office outpatient visit 15 minutes Claire Espinoza [facility] Start: 12-18-2019 End: 12-18-2019 Office outpatient visit 25 minutes Claire Espinoza [facility] Start: 12-12-2019 End: 12-12-2019 Office outpatient new 45 minutes Claire Espinoza [facility] Start: 11-21-2018 End: 11-21-2018 Patient encounter procedure KARLI YOUSSEF [facility] Start: 09-15-2018 End: 09-15-2018 Patient encounter procedure [facility] Start: 08-31-2018 End: 08-31-2018 Patient encounter procedure [facility] Procedures Date Procedure Procedure Detail Performing Clinician Start: 01-24-2025 Radiologic exam chest 2 views Minh Durand APRN.HEALTH INSPECTOR FOOD Work Phone: Start: 01-24-2025 UA DIP,URINE HCG (POC) [facility] Provider Start: 10-19-2022 Follow-up visit Follow-up CHRIS BRADY Start: 10-19-2021 End: 10-19-2021 Processing Lead Office Visit Report Comments: See Note; NOTES: [facility] [address] [place] [address] OFFICE VISIT Date of Service: 10/19/21 MR#: [id number] Acct: [id number] Name: ANYI SALOMON Rep #: [id number] : 2000 Provider: MELVA rain Age/Sex: 21/F Location: [facility] Status: Signed Intake Vital Signs 10/19/21 13:21 [...] abdominal/back pain earlier this month. [facility] to [facility], testing showed no concerns PFSH PFSH Medical History (Updated 10/19/21 @ 13:41 by Roma Sullivan NP, MARYC) Depression with [...] living children HPI IUD REMOVAL Details: ANYI SALOMON is a 21 year old who presents [...] Today Z30.432 Plan - Roma Sullivan NP, ACADEMIC AFFAIRS SPECIALIST-C: Discussed use, benefits, risks and side effects [...] ea 7RF 10/19/21 1343 <Electronically signed by Rmoa Sullivan NP ACADEMIC AFFAIRS SPECIALIST-C> Date Roma Sullivan NP ACADEMIC AFFAIRS SPECIALIST-C Cosigner Signature: Date (if applicable) CC: Claire Jeffries Start: 05-19-2021 End: 05-27-2021 Processing Lead Office Visit Report Comments: See Note; NOTES: [facility] [address] [place] [address] OFFICE VISIT Date of Service: 05/19/21 MR#: [id number] Acct: [id number] Name: ANYI SALOMON Rep #: [id number] : 2000 Provider: MELVA rain Age/Sex: 21/F Location: [facility] Status: Signed Intake Vital Signs 05/19/21 13:18 [...] and lightheaded. wants to check mirena placement [facility] Medical History (Updated 05/19/21 @ 13:31 by [...] Single HPI discuss heavy/painful periods Details: ANYI SALOMON is a 21 year old who presents [...] check up: Plan - Roma Sullivan NP, ACADEMIC AFFAIRS SPECIALIST-C: Ultrasound to check IUD placement Considering change in contraception. 05/19/21 1332 <Electronically signed by Roma Sullivan NP ACADEMIC AFFAIRS SPECIALIST-C> Date Roma Sullivan NP ACADEMIC AFFAIRS SPECIALIST-C Cosigner Signature: Date (if applicable) CC: Claire Jeffries HEALTH INSPECTOR FOOD Work Phone: Start: 01-29-2021 End: 01-29-2021 CTA Chest W/WO Contrast Comments: See Note; NOTES: [facility] [address] [place] [address] CTA Chest W/WO Contrast MR#: [id number] Acct: [id number] Name: ANYI SALOMON Rep #: [id number] : 2000 F 20 From: Tom Cherry MD PCP: MELVA Cole Status: REG CLI Study: CTA Chest W/WO Contrast Date of Exam: 01/29/21 Exam# [id number] Ordering Dr: Claire Jeffries NP ACADEMIC AFFAIRS SPECIALISTIvan STUDY: CTA CHEST REASON FOR EXAM: Female, [...] EDT Tel , Service support , CC: MELVA Jeffries Medical Staff Physician: Signed Claire Jeffries CNP Work Phone: Start: 02-13-2020 End: 02-13-2020 Processing Lead Office Visit Report Comments: See Note; NOTES: [facility] 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 Accompanied by: Self Is patient [...] HPI Lump on left breast : Details: AYNI SALOMON is a 19 year old who presents [...] Detail Author Start: 2048 Zoster Vaccines (1 o f 2) Zoster Vaccines (1 of 2) [facility] Start: 04-01-2025 Influenza vaccination Influenz a Vaccine (Season Ended) [facility] Start: 01-23-2025 DTaP/Tdap/Td Vaccine s (2 - Td or Tdap) DTaP/Tdap/Td Vaccines (2 - Td or Tdap) [facility] Start: 01-23-2025 Urine microalbumin profile DTaP,Tdap,Td Vaccine (2 - Td or Tdap) [facility] Start: 04-01-2024 Covid-19 Vaccine ( season) Covid-19 Vaccine ( season) [facility] Start: 04-01-2023 Influenza vaccination [facility] Start: 11-01-2022 Procedure Education Eprescribe d prescriptions (G8553) [facility] Work Phone: Start: 11-01-2022 Provider Instruction s for Treatment Follow up in 6 weeks [facility]; [facility] Work Phone: Start: 09-28-2022 Patient Education Compr [facility] Internal Medicine; [facility] Work Phone: Start: 09-28-2022 Procedure Education Eprescribe d prescriptions (G8553) [facility]; [facility] Work Phone: Start: 09-28-2022 Provider Instruction s for Treatment Follow up in 4-6 weeks [facility]; [facility] Work Phone: Start: 08-01-2022 DEPRESSION ASSESSMENT DEPRESSION ASS ESSMENT [facility] Start: 04-01-2022 Influenza vaccination Influenza Vacc ine (#1) [facility] Start: 01-27-2022 Procedure Education Eprescribe d prescriptions (G8553) [facility]; [facility] Work Phone: Start: 01-29-2021 Procedure Education Eprescribe d prescriptions (G8553) [facility]; [facility] Work Phone: Start: 03-18-2020 Procedure Education Eprescribe d prescriptions (G8553) [facility] Work Phone: Start: 03-14-2020 Procedure Education Eprescribe d prescriptions (G8553) [facility] Work Phone: Start: 12-18-2019 Procedure Education Eprescribe d prescriptions (G8553) [facility] Work Phone: Start: 12-18-2019 Provider Instruction s for Treatment [facility] Work Phone: Start: 12-12-2019 Procedure Education Eprescribe d prescriptions (G8553) [facility] Work Phone: Start: 12-12-2019 Provider Instruction s for Treatment Follow up in 2 weeks [facility] Work Phone: Start: 2019 PAP TESTING PAP TESTING [facility] Start: 2019 Screening for malign ant neoplasm of cervix [facility] Start: 2017 Hepatitis B Vaccine (1 of 3 - 19+ 3-dose series) Hepatitis B Vaccine (1 of 3 - 19+ 3-dose series) [facility] Start: 2017 Urine microalbumin profile DTAP,TDAP,TD (1 - Tdap) [facility] Start: 2016 Anxiety Screening Anxiety Screening [facility] Start: 2016 Depression Screening Depression Scre ening [facility] Start: 2016 Hepatitis C screening Hepatitis C [facility] Start: 2016 HEPATITIS C SCREENING HEPATITIS C [facility] Start: 2016 HIV SCREENING HIV SCREENING [facility] Start: 2016 HIV screening HIV Screening [facility] Start: 07-25-2015 Hepatitis A Vaccines (2 of 2 - 2-dose series) Hepatitis A Vaccines (2 of 2 - 2-dose series) [facility] Start: 02-20-2015 Varicella vaccination Varicell a Vaccines (1 of 2 - 2-dose childhood series) [facility] Start: 2013 HPV Vaccine (1 - 3-d ose series) HPV Vaccine (1 - 3-dose series) [facility] Start: 2012 PEDS TO ADULT TRANSITION ANNUAL ASSESSMENT PEDS TO ADULT TRANSITION ANNUAL ASSESSMENT [facility] Start: 2010 PEDS TO ADULT TRANSITION INITIAL DISCUSSION PEDS TO ADULT TRANSITION INITIAL DISCUSSION [facility] Start: 2009 HPV Vaccines (1 - 2-dose series) HPV Vaccines (1 - 2-dose series) [facility] Start: 2008 MENINGOCOCCAL B: Consider based on risk (1 of 2 - Risk Bexsero 2-dose series) MENINGOCOCCAL B: Consider based on risk (1 of 2 - Risk Bexsero 2-dose series) [facility] Start: 2007 HPV VACCINE (1 - 2-d ose series) HPV VACCINE (1 - 2-dose series) [facility] Start: 1998 COVID-19 Vaccine (#1) COVID-19 Vacci ne (#1) [facility] Start: 1998 HEPATITIS B (1 of 3 - 3-dose series) HEPATITIS B (1 of 3 - 3-dose series) [facility] Start: 1998 Hepatitis B Vaccines (1 of 3 - 3-dose series) Hepatitis B Vaccines (1 of 3 - 3-dose series) [facility] Start: 1998 HIV screening HIV Screening [facility] Urine test visual color cmprsn meths HCG QUAL UR B/O Lab Routine Dysuria Ordered: 01/24/2025 [facility] Work Phone: Comment on above: Ordered: 01/24/2025 [facility] Work Phone: [facility] Work Phone: Immunizations Immunization Date Immunization Notes Care Provider Avis milner 01-23-2015 hepatitis A and hepa titis B vaccine Chris Brady MD Work Phone: [facility] Payers Date Payer Category Payer Unknown [id number] 2024 Self-pay [id number] 2022 Private Health Insurance [id number] 2022 Unknown [id number] 2022 Unknown [id number] 2022 Unknown 2022 Unknown [id number] 2015 Unknown [id number] 2000 Unknown [id number] 2.16.8 [id number] 1998 Unknown [id number] 2.16.8 [id number] 1998 Unknown [id number] 2.16.8 [id number] 1998 Unknown [id number] 1956 Unknown [id number] 2.16.84 [id number] Unknown [id number] 2.16.8 [id number] Unknown [id number] 2.16.8 [id number] Unknown [id number] 2.16.8 [id number] Social History Date Type Detail Facility Alcohol Use: Alcohol Use: [facility] Work Phone: Start: 07-09-2020 End: 01-24-2025 Caffeine Use Caffeine Use [facility] Project Manager al Medicine Work Phone: Comment on above: none [...] Start: 05-31-2022 Tobacco smoking status NHIS Ex-smoker [facility] History of tobacco use Current smoker [facility] History of tobacco use Cigarette Smoker [facility] Start: 05-31-2022 End: 12-21-2022 Tobacco use and exposure Smokeless tobacco non-user [facility] Start: 06-15-2022 Alcohol intake Current drinke r of alcohol (finding) [facility] Start: 05-31-2022 Alcohol Comment 2-3 drinks a week [facility] Start: 2000 Sex Assigned At Not on file [facility] Start: 10-09-2022 End: 10-19-2022 Exposure to SARS-CoV-2 (event) Not sure [facility] Start: 12-21-2022 Tobacco smoking status NHIS Never smoked tobacco [facility] Start: 12-21-2022 End: 01-24-2025 Alcohol intake Not Asked [facility] Start: 10-24-2023 Tobacco smoking status NHIS Unknown if ever smoked [facility] Start: 2000 Sex Assigned At Female W [facility] Start: 07-09-2020 End: 01-24-2025 Tobacco use panel [facility] National Score (1-100), lower number is lower risk Not on file [facility] Tobacco smoking status [facility] Start: 01-24-2025 Sex Female (finding) [facility] Functional Status Date Assessment Result Facility 10-24-2014 Are you deaf, or do you have serious difficulty hearing No 10/24/2014 10:34 AM Madison Ramirez LPN No [facility] 10-24-2014 Are you blind, or do you have serious difficulty seeing, even when wearing glasses No 10/24/2014 10:34 AM Madison Ramirez LPN No [facility] 10-24-2014 Do you have serious difficulty walking or climbing stairs No 10/24/2014 10:34 AM Madison Ramirez LPN No [facility] 10-24-2014 Do you have difficul ty dressing or bathing No 10/24/2014 10:34 AM Madison Ramirez LPN No [facility] 10-24-2014 Because of a physica l, mental, or emotional condition, do you have difficulty doing errands alone such as visiting a physician's office or shopping No 10/24/2014 10:34 AM Madison Ramirez LPN No [facility] Mental Status Date Assessment Result Facility 10-24-2014 Because of a physica l, mental, or emotional condition, do you have serious difficulty concentrating, remembering, or making decisions No 10/24/2014 10:34 AM Madison Ramirez LPN No [facility] Clinical Notes 10-31-2022 to 01-24-2025 Telephone Encounter - Navya Benitez MA - 01/24/2025 6:30 PM EDTTelephone Encounter - Navya Benitez MA - 01/24/2025 6:30 PM EDHernandoKatheryn, RT(R) - 01/24/2025 2:40 PM EDT Note Date & Type Note Facility 01-24-2025 Hospital Discharg e instructions Patient Education 01/24/2025 16:59:28 Neck Spasm, No Trauma Neck Spasm A spasm of the neck muscles can happen after a sudden awkward neck movement. Sleeping with your neck in a crooked position can also cause spasm. Some people respond to emotional stress by tensing the muscles of their neck, shoulders, and upper back. If neck spasm lasts long enough, it can cause a headache. The treatment described below will usually help the pain to go away in 5 to 7 days. Pain that continues may need further evaluation or other types of treatment such as physical therapy. Home care Rest and relax the muscles. Use a comfortable pillow that supports the head and keeps the spine in a neutral position. The position of the head should not be tilted forward or backward. A rolled up towel may help for a custom fit. Some people find relief with heat. Heat can be applied with either a warm shower or bath or a moist towel heated in the microwave and massage. Others prefer cold packs. You can make an ice pack by filling a plastic bag that seals at the top with ice cubes or crushed ice and then wrapping it with a thin towel. Try both and use the method that feels best for 15 to 20 minutes, several times a day. Whether using ice or heat, be careful that you don't injure your skin. Never put ice directly on the skin. Always wrap the ice in a towel or other type of cloth. This is very important, especially in people with poor skin sensation. Try to reduce your stress level. Emotional stress can lead to neck muscle tension and get in the way of or delay the healing process. You may use luko-qlr-yoplqrv pain medicine to control pain, unless another medicine was prescribed. If you have chronic liver or kidney disease or ever had a stomach ulcer or gastrointestinal bleeding, talk with your healthcare provider before using these medicines. Follow-up care Follow up with your healthcare provider if your symptoms don't show signs of improvement after one week. Physical therapy or further tests may be needed. If X-rays, CT scans, or MRI scans were taken, you will be told of any new findings that may affect your care. Call 911 Call 911 if you have: Sudden weakness or numbness in one or both arms or legs Neck swelling, trouble with or painful swallowing Trouble breathing Chest pain When to seek medical advice Call your healthcare provider right away if any of these occur: Pain becomes worse or spreads into one or both arms or legs Increasing headache with nausea or vomiting Fever of 100.4 F (38 C) or higher, or as directed by your healthcare provider Saurabh [id number] [employer]. [address] [place] [address]. All rights reserved. This information is not intended as a substitute for professional medical care. Always follow your healthcare professional's instructions. Follow Up Care 01/24/2025 15:50:00 With:Call Physician Referral Address:Unknown When:2-4 days [facility] 01-24-2025 Telephone encounter Note Patient notified. Navya Benitez MA [facility] 01-24-2025 Miscellaneous Notes Patient notified. Navya Benitez MA No acute findings on chest x-ray documented in this encounter [facility] 01-24-2025 Note Discharge Instructions Thank you for allowing [facility] to assist you with your healthcare needs. The following is important discharge information regarding your hospital visit. Diagnosis from Today's Visit Cervical radiculopathy What to Do Next Instructions from Your Care Team No qualifying data available. Post Acute Orders No qualifying data available. You Need to Schedule the Following Appointments Follow Up with Call Physician Referral When:Within 2-4 days Allergies amoxicillin hydrOXYzine Medications Please ask your primary doctor or pharmacist before taking any other medication not listed, including over the counter drugs, herbal medications, vitamins and or supplements as they may interact with your home medications. What How Much When Instructions Last Dose New predniSONE (predniSONE 50 mg oral tablet) 1 tab(s) by mouth Every day Duration: 7 Days Printed Prescription New tiZANidine (tiZANidine 2 mg oral tablet) 1 tab(s) by mouth Every 8 hours Printed Prescription Please take this list to your next doctor s visit. Bring all medications you take, including over the counter medications, herbals and other supplements with you to your doctor s visit. Patients and families are reminded to discard old lists and to update any records with all medication providers or retail pharmacies. Education Materials Neck Spasm A spasm of the neck muscles can happen after a sudden awkward neck movement. Sleeping with your neck in a crooked position can also cause spasm. Some people respond to emotional stress by tensing the muscles of their neck, shoulders, and upper back. If neck spasm lasts long enough, it can cause a headache. The treatment described below will usually help the pain to go away in 5 to 7 days. Pain that continues may need further evaluation or other types of treatment such as physical therapy. Home care Rest and relax the muscles. Use a comfortable pillow that supports the head and keeps the spine in a neutral position. The position of the head should not be tilted forward or backward. A rolled up towel may help for a custom fit. Some people find relief with heat. Heat can be applied with either a warm shower or bath or a moist towel heated in the microwave and massage. Others prefer cold packs. You can make an ice pack by filling a plastic bag that seals at the top with ice cubes or crushed ice and then wrapping it with a thin towel. Try both and use the method that feels best for 15 to 20 minutes, several times a day. Whether using ice or heat, be careful that you don't injure your skin. Never put ice directly on the skin. Always wrap the ice in a towel or other type of cloth. This is very important, especially in people with poor skin sensation. Try to reduce your stress level. Emotional stress can lead to neck muscle tension and get in the way of or delay the healing process. You may use qxqc-vtq-grinnbt pain medicine to control pain, unless another medicine was prescribed. If you have chronic liver or kidney disease or ever had a stomach ulcer or gastrointestinal bleeding, talk with your healthcare provider before using these medicines. Follow-up care Follow up with your healthcare provider if your symptoms don't show signs of improvement after one week. Physical therapy or further tests may be needed. If X-rays, CT scans, or MRI scans were taken, you will be told of any new findings that may affect your care. Call 911 Call 911 if you have: Sudden weakness or numbness in one or both arms or legs Neck swelling, trouble with or painful swallowing Trouble breathing Chest pain When to seek medical advice Call your healthcare provider right away if any of these occur: Pain becomes worse or spreads into one or both arms or legs Increasing headache with nausea or vomiting Fever of 100.4 F (38 C) or higher, or as directed by your healthcare provider Saurabh [id number] [employer]. [address] [place] [address]. All rights reserved. This information is not intended as a substitute for professional medical care. Always follow your healthcare professional's instructions. Additional Information VACCINATE! IT SAVES LIVES! Members of the community who have not yet received the COVID-19 vaccine and would like to receive it can visit one of [facility] vaccine clinics. There are many vaccine clinic locations within the [facility]. For locations and available times, please visit [email or web address] [email or web address] It is important to note that some COVID mobile vaccine clinics are held outdoors and may be canceled in rainy or stormy conditions. To learn more about pediatric vaccinations (ages 5-11), we invite you to visit the [facility] webpage. https://www.[email or web address].org/p [email or web address]-Rviei-Rxskzwjukcf-Freq epsuzj-Iwykn-Htqjpfgjp.html To learn more about the COVID-19 vaccine, we invite you to visit the CDC website for a list of frequently asked questions. https://www.cdc.gov/coronavirus/ 2019-ncov/vaccines/faq.html [facility] [employer] Patient Portal Access Instructions: Stay connected with your healthcare team and access your personal medical information anytime with the [facility] Patient Portal. If you would like a full copy of your medical records please contact the [facility] Medical Records Department Tuesday through Tuesday between 8a.m. and 4:30p.m. Please follow the directions below to access the portal: 1.Access the email account you provided upon registration to the [facility].2.Look for an invitation email from [facility].3.Open the email and access the invitation link: Accept Invitation to [facility]4.Fill in the required busby to create your account. Sign into www.[employer] with your username and password that you created in the above steps to stay up to date. You can then view a summary of results, a summary of your visits, and the ability to download your summaries to your computer or send the information securely to a physician. Remember that your healthcare information is confidential, so carefully consider who you will allow to register on the [facility] [employer] Patient Portal for access to your information. You can also access the [facility] Patient Portal on the [employer] sonal. Simply click on Health Records under Health Data and then click on the [employer] logo. HOW TO SAFELY DISPOSE OF PRESCRIPTION MEDICATIONS Please use one of the following methods to safely dispose of your unused medications. 1.Use a drug disposal kit: the drug disposal pouch allows you to safely discard your old and unused drugs. Ask your nurse to give you one when you are discharged.2.Visit a local take-back location: Many local pharmacies and police departments have programs that collect old and unwanted prescription drugs. Call your local pharmacy or go to http://bit.[employer]Bio/3I2Ro5d to find one close to you.3.Make use of household items: Use cat litter or old coffee grounds to dispose medications if other options are not available. Mix your drugs with these household products, seal them in an airtight container and throw it into the garbage. Call [facility]: [phone] to be sure your drugs can be disposed of in this way. Some medicines may require a different approach.4.Never flush your medications down the toilet. IF YOU HAVE BEEN PRESCRIBED AN OPIOIDS FOR PAIN If you have been prescribed an opioid (such as hydrocodone, oxycodone or morphine), it is critical to understand the possible side effects and risks of opioid pain medications. Even when taken as directed, opioids can have several side effects including: Tolerance, meaning you might need to take more of a medication for the same pain relief. Nausea, vomiting and/or constipation. Sleepiness, dizziness, dry mouth, confusion, depression or itching. Physical dependence, meaning you have withdrawal symptoms when a medication is stopped ? this can develop within a few days. KNOW YOUR RESPONSIBILITIES It is important to know exactly how much and how often to take the opioid pain medications you are prescribed. Never take opioids in higher amounts or more often than prescribed. Do not combine opioids with alcohol or other drugs that cause drowsiness, such as benzodiazepines, also known as benzos, including diazepam and alprazolam, muscle relaxants or sleep aids. Never sell or share prescription opioids. This is illegal. Store opioids in a secure place and out of reach of others (including children, family, friends and visitors). The last page(s) of this document has been signed and retained as a CHART COPY Signatures Patient Education Materials Neck Spasm, No Trauma Medication Leaflets My discharge plan and instructions have been reviewed and explained to me and I,ANYI LOPEZ understand my current condition and have read and understand these discharge instructions. I have received a written copy of the plan/instructions. If I have questions, I am aware that I should contact my doctor. 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 FALL SCREENING: Has the patient had 2 falls in the last year or 1 fall with injury or currently using an Ambulatory Assistive Device (Walker, Cane, Wheelchair, Crutches, etc.)? No PATIENT GENDER DATA: Assigned female at . status: : No status: NO. PATIENT RELEVANT IMPLANT DATA REVIEWED: Yes PATIENT PRESENTS WITH AN IMPLANTABLE OR ATTACHED LEACH TANK TENDER: No RADIOLOGY DEPARTMENT: General X-ray: Exam(s) Completed: Chest X-Ray PERIPHERAL IV DATA: Not applicable SIGNED BY: RT Darline(Karis) January 24, 2025 2:47 PM documented in this encounter [facility] 01-24-2025 Note HNO ID: [id number] Author: KATHERYN BLAIR RT(R) Service: ? Author Type: Technologist Type: Progress Notes Filed: 01/24/2025 15:08 Note Text: Radiology Service Progress Note PATIENT NAME: Anyi Salomon DATE OF SERVICE: January 24, 2025 TIME: 2:47 PM PATIENT IDENTITY VERIFICATION COMPLETED USING TWO (2) IDENTIFIERS: Name and Date of confirmed by patient verbally. FALL SCREENING: Has the patient had 2 falls in the last year or 1 fall with injury or currently using an Ambulatory Assistive Device (Walker, Cane, Wheelchair, Crutches, etc.)? No PATIENT GENDER DATA: Assigned female at . status: : No status: NO. PATIENT RELEVANT IMPLANT DATA REVIEWED: Yes PATIENT PRESENTS WITH AN IMPLANTABLE OR ATTACHED LEACH TANK TENDER: No RADIOLOGY DEPARTMENT: General X-ray: Exam(s) Completed: Chest X-Ray PERIPHERAL IV DATA: Not applicable SIGNED BY: RT Darline(R) January 24, 2025 2:47 PM [facility] 01-24-2025 Note HNO ID: [id number] Author: MINH DURAND APRN.HEALTH INSPECTOR FOOD Service: ? Author Type: Nurse Practitioner Type: Progress Notes Filed: 01/24/2025 18:23 Note Text: Subjective HPI Nontoxic-appearing 24-year-old female presents urgent care chief complaint left shoulder pain. Duration of symptoms today. Associated symptoms worsening left back shoulder and chest pain. Unknown of injury. Rates pain 7 out of 10. Nonreproducible with movements. Analgesics with no relief today. No fevers. Does have some abdominal pain that is more severe than baseline. No change in bowel or bladder habits. Past medical history prescription medications allergies reviewed .Patient presents with: Pain: Left shoulder, side down into ribs, x this am unsure of issue No past medical history on file. No past surgical history on file. ALLERGIES Amoxicillin MEDICATIONS benzonatate (TESSALON PERLE) 100 mg capsule Take 2 capsules by mouth three times daily as needed. (Patient not taking: Reported on 06/22/2019) ondansetron orally disintegrating (ZOFRAN ODT) 4 mg disintegrating tablet Take 1 tablet by mouth every 6 hours as needed for Nausea/Vomiting. (Patient not taking: Reported on 06/22/2019) albuterol HFA (PROVENTIL HFA, VENTOLIN HFA) 90 mcg/actuation inhaler Inhale 2 Puffs as instructed every 4 hours as needed. (Patient not taking: Reported on 01/24/2025) No family history on file. Social History Tobacco Use Smoking status: Never Smokeless tobacco: Never BP 132/84 Pulse (!) 56 Temp 36.7 ?C (98 ?F) Resp 20 LMP 01/14/2025 (Exact Date) SpO2 100% Review of Systems Constitutional: Negative for chills, fever and malaise/fatigue. HENT: Negative for congestion, ear discharge, ear pain, sinus pain and sore throat. Eyes: Negative for blurred vision, pain, discharge and redness. Respiratory: Negative for cough, hemoptysis, sputum production, shortness of breath, wheezing and stridor. Cardiovascular: Positive for chest pain. Gastrointestinal: Positive for nausea. Negative for abdominal pain, diarrhea and vomiting. Musculoskeletal: Positive for back pain. Negative for myalgias. Skin: Negative for itching and rash. Neurological: Negative for dizziness and headaches. Objective Physical Exam Constitutional: General: She is not in acute distress. Appearance: She is not toxic-appearing. HENT: Head: Normocephalic. Nose: Nose normal. Eyes: Pupils: Pupils are equal, round, and reactive to light. Cardiovascular: Rate and Rhythm: Normal rate. Pulmonary: Effort: Pulmonary effort is normal. No respiratory distress. Musculoskeletal: Cervical back: Normal range of motion. Skin: General: Skin is warm and dry. Comments: Pain to highlighted area. Pain is not reproducible. No erythema edema. No rashes. Neurological: General: No focal deficit present. Mental Status: She is alert. ASSESSMENT/PLAN: 1. Dysuria - ICD9: 788.1, ICD10: R30.0 (primary diagnosis) - HCG QUAL UR B/O 2. Chest pain, unspecified type - ICD9: 786.50, ICD10: R07.9 - XR CHEST 2V FRONTAL/LAT hCG negative. No acute findings on chest x-ray. Referred to ED for further evaluation at this time there is no clear etiology for back/chest discomfort. Minh Durand APRN.[facility] 01-24-2025 History of Presen t illness Narrative Images from the original note were not included. Subjective HPI Nontoxic-appearing 24-year-old female presents urgent care chief complaint left shoulder pain. Duration of symptoms today. Associated symptoms worsening left back shoulder and chest pain. Unknown of injury. Rates pain 7 out of 10. Nonreproducible with movements. Analgesics with no relief today. No fevers. Does have some abdominal pain that is more severe than baseline. No change in bowel or bladder habits. Past medical history prescription medications allergies reviewed .Patient presents with: Pain: Left shoulder, side down into ribs, x this am unsure of issue No past medical history on file. No past surgical history on file. ALLERGIES Amoxicillin MEDICATIONS benzonatate (TESSALON PERLE) 100 mg capsule Take 2 capsules by mouth three times daily as needed. (Patient not taking: Reported on 06/22/2019) ondansetron orally disintegrating (ZOFRAN ODT) 4 mg disintegrating tablet Take 1 tablet by mouth every 6 hours as needed for Nausea/Vomiting. (Patient not taking: Reported on 06/22/2019) albuterol HFA (PROVENTIL HFA, VENTOLIN HFA) 90 mcg/actuation inhaler Inhale 2 Puffs as instructed every 4 hours as needed. (Patient not taking: Reported on 01/24/2025) No family history on file. Social History Tobacco Use Smoking status: Never Smokeless tobacco: Never BP 132/84 Pulse (!) 56 Temp 36.7 C (98 F) Resp 20 LMP 01/14/2025 (Exact Date) SpO2 100% Review of Systems Constitutional: Negative for chills, fever and malaise/fatigue. HENT: Negative for congestion, ear discharge, ear pain, sinus pain and sore throat. Eyes: Negative for blurred vision, pain, discharge and redness. Respiratory: Negative for cough, hemoptysis, sputum production, shortness of breath, wheezing and stridor. Cardiovascular: Positive for chest pain. Gastrointestinal: Positive for nausea. Negative for abdominal pain, diarrhea and vomiting. Musculoskeletal: Positive for back pain. Negative for myalgias. Skin: Negative for itching and rash. Neurological: Negative for dizziness and headaches. Objective Physical Exam Constitutional: General: She is not in acute distress. Appearance: She is not toxic-appearing. HENT: Head: Normocephalic. Nose: Nose normal. Eyes: Pupils: Pupils are equal, round, and reactive to light. Cardiovascular: Rate and Rhythm: Normal rate. Pulmonary: Effort: Pulmonary effort is normal. No respiratory distress. Musculoskeletal: Cervical back: Normal range of motion. Skin: General: Skin is warm and dry. Comments: Pain to highlighted area. Pain is not reproducible. No erythema edema. No rashes. Neurological: General: No focal deficit present. Mental Status: She is alert. ASSESSMENT/PLAN: 1. Dysuria - ICD9: 788.1, ICD10: R30.0 (primary diagnosis) - HCG QUAL UR B/O 2. Chest pain, unspecified type - ICD9: 786.50, ICD10: R07.9 - XR CHEST 2V FRONTAL/LAT hCG negative. No acute findings on chest x-ray. Referred to ED for further evaluation at this time there is no clear etiology for back/chest discomfort. Minh Durand APRN.HEALTH INSPECTOR FOOD documented in this encounter [facility] 12-21-2022 History of Presen t illness Narrative This note was created using [employer]. Subjective Anyi Salomon is a 22 year old female. HPI 22-year-old female presents for bilateral eye redness and crusting that started this morning. Patient states she got up today and her eyes were crusted shut. She had redness of both eyes, right worse than left. She has had a sore throat and congestion for the past few days. 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 EM Heaton documented in this encounter [facility] 10-19-2022 Note Plastic Surgery Prog ress Note PATIENT NAME: Anyi Salomon TODAY'S DATE: 10/20/2022 SUBJECTIVE: Patient doing well. Complains of redness. Improved contour. No additional foreign body palpated. OBJECTIVE: VITALS: There were no vitals taken for this visit. CONSTITUTIONAL: NAD RESPIRATORY: Nonlabored, No wheezing CV: HR/BP Stable ABDOMEN: Soft, NT, ND INCISION: c/d/I. Mildly erythematous. No contour deformity EXTREMITIES: ROM intact ASSESSMENT AND PLAN: Anyi Salomon is a 22 y.o. female s/p excision of foreign body from previous trauma -Discussed scar care extensively -I spent over 10 minutes counseling, coordinating, reviewing, documenting, and discussing care. -Follow up PRN Chris Brady MD, #[id number] [facility] 10-19-2022 History of Presen t illness Narrative Plastic Surgery Progress Note PATIENT NAME: Anyi Salomon TODAY'S DATE: 10/20/2022 SUBJECTIVE: Patient doing well. Complains of redness. Improved contour. No additional foreign body palpated. OBJECTIVE: VITALS: There were no vitals taken for this visit. CONSTITUTIONAL: NAD RESPIRATORY: Nonlabored, No wheezing CV: HR/BP Stable ABDOMEN: Soft, NT, ND INCISION: c/d/I. Mildly erythematous. No contour deformity EXTREMITIES: ROM intact ASSESSMENT AND PLAN: Ayni Salomon is a 22 y.o. female s/p excision of foreign body from previous trauma -Discussed scar care extensively -I spent over 10 minutes counseling, coordinating, reviewing, documenting, and discussing care. -Follow up PRN Chris Brady MD, #[id number] documented in this encounter [facility] 10-05-2022 Telephone encounter Note Appt rescheduled [facility] 10-05-2022 Miscellaneous Notes Appt rescheduled Name of Caller: Anyi Contact Reason for Appointment: Pt would like to r/s missed appt [facility] Name[facility] Medication Refills need, if any: n/a Medication Name: n/a documented in this encounter [facility] 10-04-2022 Telephone encounter Note Name of Caller: Anyi Contact Reason for Appointment: Pt would like to r/s missed appt Office Name: [facility] Plastic Surgery Medication Refills need, if any: n/a Medication Name: n/a [facility] 06-09-2022 Note Plastic Surgery Prog ress Note PATIENT NAME: Anyi Salomon TODAY'S DATE: 06/09/2022 SUBJECTIVE: Anyi Salomon is 5 days s/p excision of foreign [...] EXTREMITIES: ROM intact ASSESSMENT AND PLAN: Anyi Salomon is a 22 y.o. female s/p excision of foreign body of forehead and excision of multiple lesions of the face. - Sutures removed - Photos obtained - Follow up in 1 week for removal of steri-strips and to discuss scar therapy The physician was present, and has seen and examined the patient at the bedside with me. [facility] 05-31-2022 Note Comprehensive PreSur gical History and Physical ? Name: Anyi Salomon : 2000 (Age-22 y.o.) Date of Service: Pt seen/examined on 05/31/2022 Chief Complaint: Residual foreign body in soft tissue History Of Present Illness: Case: [id number] Date/Time: 06/04/22 0800 Procedures: EXCISION OF FOREIGN BODY OF FOREHEAD WITH COMPLEX CLOSURE [09112 CPT(R)] EXCISION BENIGN LESION FACE EARS EYELIDS NOSE LIPS MUCOUS MEMBRANES 0.5 CM OR LESS (Face) [46459 CPT(R)] EXCISION BENIGN LESION FACE EARS EYELIDS NOSE LIPS MUCOUS MEMBRANES 0.6 TO 1.0 CM (Face) [25419 CPT(R)] Anesthesia type: General Diagnosis: Residual foreign body in soft tissue [M79.5] Pre-op diagnosis: Residual foreign body in soft tissue [M79.5] Location: [address] Operating Room Surgeons: Chris Brady MD From Dr. Brady's 04-08-22 office note: Anyi Salomon is a 22 y.o. female who presents [...] for plastic surgery evaluation. Denies history of MO, CAD, CHF, TIA, CVA Past Medical History: [...] ear normal. Nose: Nose normal. Mouth/Throat: Lips: [place]. Mouth: Mucous membranes are moist. Pharynx: Oropharynx [...] low risk procedur (more content not included)... [facility] Evaluation + Plan note No data available for this section [facility] Evaluation note Diagnosis Acute conjunctivitis of both eyes, unspecified acute conjunctivitis type- Primary [facility] in this [facility] noteNo assessment information availableWTriHealth [facility] Work Phone: Evaluation note* Diagnosis Foreign body in skin of forehead- Primary documented in this encounter [facility] note* Diagnosis Dysuria- Primary Chest pain, unspecified type Chest pain, unspecified type documented in this encounter [facility] note* Diagnosis Chest pain, unspecified type documented in this encounter [facility]* Name Dates Details Patient Instructions Indication:BMI 23.0-23.9, adult Start:29-Jan-2021 Instruction Type:Provider Instructions for Treatment How to Access Health Informa tion Online using Patient Portal and 3rd Republican Apps Indication:BMI 23.0-23.9, adult Start:29-Jan-2021 Instruction Type:Patient [...] tion Online using Patient Portal and 3rd Republican Apps Indication:Smoker Start:27-Jan-2022 Instruction Type:Patient Education Patient Instructions Indication:Smoker Start:27-Jan-2022 Instruction Type:Provider Instructions for Treatment Patient Instructions Indication:BMI 23.0-23.9, adult Start:29-Jan-2021 Instruction Type:Provider Instructions for Treatment How to Access Health Informa tion Online using Patient Portal and 3rd Republican Apps Indication:BMI 23.0-23.9, adult Start:29-Jan-2021 Instruction Type:Patient [...] tion Online using Patient Portal and 3rd Republican Apps Indication:Smoker Start:28-Sep-2022 Instruction Type:Patient Education How to Access Health Informa tion Online using Patient Portal and 3rd Republican Apps Indication:Smoker Start:27-Jan-2022 Instruction Type:Patient Education Patient Instructions Indication:Smoker Start:27-Jan-2022 Instruction Type:Provider Instructions for Treatment Patient Instructions Indication:BMI 23.0-23.9, adult Start:29-Jan-2021 Instruction Type:Provider Instructions for Treatment How to Access Health Informa tion Online using Patient Portal and 3rd Republican Apps Indication:BMI 23.0-23.9, adult Start:29-Jan-2021 Instruction Type:Patient [...] tion Online using Patient Portal and 3rd Republican Apps Indication:Smoker Start:28-Sep-2022 Instruction Type:Patient Education How to Access Health Informa tion Online using Patient Portal and 3rd Republican Apps Indication:Smoker Start:27-Jan-2022 Instruction Type:Patient Education Patient Instructions Indication:Smoker Start:27-Jan-2022 Instruction Type:Provider Instructions for Treatment Patient Instructions Indication:BMI 23.0-23.9, adult Start:29-Jan-2021 Instruction Type:Provider Instructions for Treatment How to Access Health Informa tion Online using Patient Portal and 3rd Republican Apps Indication:BMI 23.0-23.9, adult Start:29-Jan-2021 Instruction Type:Patient [...] tion Online using Patient Portal and 3rd Republican Apps Indication:Smoker Start:28-Sep-2022 Instruction Type:Patient Education How to Access Health Informa tion Online using Patient Portal and 3rd Republican Apps Indication:Smoker Start:27-Jan-2022 Instruction Type:Patient Education Patient Instructions Indication:Smoker Start:27-Jan-2022 Instruction Type:Provider Instructions for Treatment Patient Instructions Indication:BMI 23.0-23.9, adult Start:29-Jan-2021 Instruction Type:Provider Instructions for Treatment How to Access Health Informa tion Online using Patient Portal and 3rd Republican Apps Indication:BMI 23.0-23.9, adult Start:29-Jan-2021 Instruction Type:Patient [...] tion Online using Patient Portal and 3rd Republican Apps Indication:Anxiety and depression Start:01-Nov-2022 Instruction Type:Patient Education Patient Instructions Indication:Smoker Start:28-Sep-2022 Instruction Type:Provider Instructions for Treatment How to Access Health Informa tion Online using Patient Portal and 3rd Republican Apps Indication:Smoker Start:28-Sep-2022 Instruction Type:Patient Education How to Access Health Informa tion Online using Patient Portal and 3rd Republican Apps Indication:Smoker Start:27-Jan-2022 Instruction Type:Patient Education Patient Instructions Indication:Smoker Start:27-Jan-2022 Instruction Type:Provider Instructions for Treatment Patient Instructions Indication:BMI 23.0-23.9, adult Start:29-Jan-2021 Instruction Type:Provider Instructions for Treatment How to Access Health Informa tion Online using Patient Portal and 3rd Republican Apps Indication:BMI 23.0-23.9, adult Start:29-Jan-2021 Instruction Type:Patient [...] tion Online using Patient Portal and 3rd Republican Apps Indication:Anxiety and depression Start:01-Nov-2022 Instruction Type:Patient Education Patient Instructions Indication:Smoker Start:28-Sep-2022 Instruction Type:Provider Instructions for Treatment How to Access Health Informa tion Online using Patient Portal and 3rd Republican Apps Indication:Smoker Start:28-Sep-2022 Instruction Type:Patient Education How to Access Health Informa tion Online using Patient Portal and 3rd Republican Apps Indication:Smoker Start:27-Jan-2022 Instruction Type:Patient Education Patient Instructions Indication:Smoker Start:27-Jan-2022 Instruction Type:Provider Instructions for Treatment Patient Instructions Indication:BMI 23.0-23.9, adult Start:29-Jan-2021 Instruction Type:Provider Instructions for Treatment How to Access Health Informa tion Online using Patient Portal and 3rd Republican Apps Indication:BMI 23.0-23.9, adult Start:29-Jan-2021 Instruction Type:Patient [...] tion Online using Patient Portal and 3rd Republican Apps Indication:Anxiety and depression Start:01-Nov-2022 Instruction Type:Patient Education Patient Instructions Indication:Smoker Start:28-Sep-2022 Instruction Type:Provider Instructions for Treatment How to Access Health Informa tion Online using Patient Portal and 3rd Republican Apps Indication:Smoker Start:28-Sep-2022 Instruction Type:Patient Education How to Access Health Informa tion Online using Patient Portal and 3rd Republican Apps Indication:Smoker Start:27-Jan-2022 Instruction Type:Patient Education Patient Instructions Indication:Smoker Start:27-Jan-2022 Instruction Type:Provider Instructions for Treatment Patient Instructions Indication:BMI 23.0-23.9, adult Start:29-Jan-2021 Instruction Type:Provider Instructions for Treatment How to Access Health Informa tion Online using Patient Portal and 3rd Republican Apps Indication:BMI 23.0-23.9, adult Start:29-Jan-2021 Instruction Type:Patient [...] Medicine Work Phone: Summary Purpose Family History No Family History Records FoundUnknown Family Member Name Dates Details Father Comments:MS [...] thinks lung Status:Active Maternal Grandmother Comments:HTN Status:Active Relationship Condition Age at Onset Recorded Date/T kamaljit Not Specified Malignant neoplasm Unknown grandfather Malignant neoplasm of lung Unknown Hypertension Unknown Cardiac disease Unknown father Multiple sclerosis Unknown Malignant neoplasm of prostate Unknown grandfather Parkinson's disease Unknown Advance Directives No Advanced Directives Records FoundLatest Code Status on File Code Status Date Activated Date Inactivated Comments Full Code 06/04/2022 6:06 AM 06/04/2022 3:05 PM Advance Directive Response Recorded Date/ Time Living Will No June 13 1:02pm Power of Market Investigator No June 13, 2023 1:02pm Instructions Name Dates Details How to access [...] EMERGENCY DEPARTMENT DISCHAR GE SUMMARY PATIENT NAME:ANYI SALOMON MRN: [id number] AGE: 19 Years SEX: Female PHONE:[phone] DOS: 03/05/2020 14:16:00 : 2000 ATTENDING PHYSICIAN:Josue [...] more content not included)... Note Patient: ANYI SALOMON MRN : [id number] Age: 19 years Sex: Female : 2000 [...] scarring, soft, nontender, nondistended, no guarding, no [place] sign, no [place] sign. PELVIS: Stable [...] content not included)... Assessments Note Patient: ANYI SALOMON MRN : [id number] Age: 19 years Sex: Female : 2000 [...] Level: 107 mMo (more content not included)... Chief Complaint and Reason for Visit Chief Complaint SORE THROAT Additional Source Comments INFORMATION SOURCE (unrecogn ized section and content) DATE CREATED AUTHOR 11/24/2018 [facility] DATE CREATED AUTHOR AUTHOR'S ORGANIZ ATION 03/21/2020 [facility] DATE CREATED AUTHOR AUTHOR'S ORGANIZ ATION 10/08/2021 [facility] ([place]) DATE CREATED AUTHOR AUTHOR'S ORGANIZ ATION 10/20/2022 [facility] DATE CREATED AUTHOR AUTHOR'S ORGANIZ ATION 11/04/2022 [facility] DATE CREATED AUTHOR AUTHOR'S ORGANIZ ATION 01/25/2025 [facility] DATE CREATED AUTHOR AUTHOR'S ORGANIZ ATION 01/27/2025 [facility] DATE CREATED AUTHOR AUTHOR'S ORGANIZ ATION 06/09/2025 [facility] Reason for Visit (unrecogniz ed section and content) Reason Onset Date Comments Missed Appointment 10/04/2022 R/s 09/21 Reason Comments Eye Problem Bilateral irritated eyes - woke up with symptoms Reason Comments Follow-up Reason Comments Pain Left shoulder, side down into ribs, x this am unsure of issue Care Teams (unrecognized sec tion and content) Clinical Liaison Relationship Specialty Start Date End Date [facility] [address] [place] [id number] PCP - General 05/29/22 Team Status: Active Member Role Status Dates Dr. Ewelina Jarvis MD Family Provider Active Dr. Casi Ruffin DO Primary Care Provider Active Team Status: Inactive Member Role Status Dates Claire Jeffries ACADEMIC AFFAIRS SPECIALIST, ACADEMIC AFFAIRS SPECIALIST-C Primary Care Provider, Referring P marcela Active Nate STRICKLAND, PA Attending Provider Active Team Status: Inactive Member Role Status Dates Dr. Casi Ruffin , Primary Care Provider Active Radha Stoddard NP-C Attending Provider, Referring Saida parham Active Clinical Liaison Relationship Specialty Start Date End Date No, Pcp [address] [place] [address] PCP - General 05/29/22 Source Comments (unrecognize d section and content) In the event this informatio n is protected by the Federal Confidentiality of Alcohol and Drug Abuse Patient Records regulations: The Federal rules restrict any use of the information to criminally investigate or prosecute any alcohol or drug abuse patient.[facility] the event this information is protected by the Federal Confidentiality of Alcohol and Drug Abuse Patient Records regulations: The Federal rules restrict any use of the information to criminally investigate or prosecute any alcohol or drug abuse patient.[facility] the event this information is protected by the Federal Confidentiality of Alcohol and Drug Abuse Patient Records regulations: The Federal rules restrict any use of the information to criminally investigate or prosecute any alcohol or drug abuse patient.[facility] the event this information is protected by the Federal Confidentiality of Alcohol and Drug Abuse Patient Records regulations: The Federal rules restrict any use of the information to criminally investigate or prosecute any alcohol or drug abuse patient.[facility] Goals (unrecognized section and content) Goals may be documented in a n alternate section No data available for this section FOR RECORDS PERTAINING TO PATIENTS WHO ARE [...] BE BASED ON THE PRIMARY CLINICAL RECORDS. [facility]. provides no warranty or guarantee of the accuracy or completeness of information in this document.
[2025-06-19 13:50] LABS: Barbiturate Urine NEGATIVE (< 200 ng/mL); Benzodiazepine Urine NEGATIVE (< 200 ng/mL); PCP Urine NEGATIVE (< 25 ng/mL); THC Urine PRESUMPTIVE POSITIVE (< 50 ng/mL)
[2025-06-21 21:07] LABS: Chlamydia By Nucleic Acid AMP Negative (Negative); Gonococcus By Nucleic Acid AMP Negative (Negative)
== END | disposition home or self-care (01) ==
LOC: LABSPEC 10:39
PROVIDERS: PCP Internal Medicine; Visit Provider Advanced Practice Midwife
DX: O09.90 Supervision of high risk pregnancy, unspecified, unspecified trimester (principal); O99.320 Drug use complicating pregnancy, unspecified trimester; F12.90 Cannabis use, unspecified, uncomplicated; Z3A.00 Weeks of gestation of pregnancy not specified
CPT/HCPCS: 80307; 87086; 87491; 87591

== ENCOUNTER 2025-07-04 09:55 | Emergency (ER) | payer OTHER, SELFPAY ==
[2025-07-04 09:56] VITALS: BP 135/75; PULSE 60; RESP 16; TEMP 36.6; O2SAT 99
--- NOTE | 2025-07-04 10:03 | ED.VIS.DYS ---
HPI History of Present Illness Chief Complaint: Nausea/Vomiting/Diarrhea Informant: patient and parent Onset/Context/Timing Onset: Days Context: gradual Timing: Continuous Current Severity: Mild Maximum Severity: Mild Worsened by: Nothing Relieved by: Nothing Narrative Narrative: 25-year-old female currently 11 weeks Ab0. History of irritable bowel. She has had diarrhea for the last 5 days and recently nausea vomiting. had similar symptoms. She denies any vaginal bleeding. No dysuria. No significant fever. No recent hospitalization and she has been on no antibiotics. PE Risk Factors: Negative for Cancer, OCP + Smoking + > 35, Prior DVT or PE, Recent immobilization, Recent surgery or Recent travel Prior similar symptoms: No Recent Illness/Hospitalization: No PFSH PFSH Medical History Normal EEG Exercise-induced asthma History of trauma IBS (irritable bowel syndrome) Depression with anxiety Anxiety disorder, unspecified ADHD Vasovagal syncope Home Medications ?Medication ?Instructions ?Recorded ?Last Taken ?Type docosahexaenoic acid 200 mg mg PO 06/04/25 Unknown History capsule ( DHA) doxylamine succinate 25 mg tablet 12.5 mg (1/2 x 25 mg) PO QHS #30 06/19/25 Unknown Rx (Unisom (doxylamine)) tabs pyridoxine (vitamin B6) 25 mg 25 mg PO TID #90 tabs 06/19/25 Unknown Rx tablet ondansetron 4 mg disintegrating 4 mg PO Q6H PRN nausea and 07/04/25 Unknown Rx tablet vomiting #10 tabs Allergy/AdvReac Type Severity Reaction Status Date / Time hydroxyzine Allergy Mild Hives Verified 07/04/25 09:59 amoxicillin (Amoxicillin) Allergy Unknown Verified 07/04/25 09:59 Family History Father Multiple sclerosis Prostate cancer Diverticulitis Grandfather Parkinsons disease Macular degeneration Lung cancer Hypertension Grandmother Lung cancer Grandmother Dementia Other Cancer Surgical History H/O plastic surgery Social History adopted: No household members: spouse number of children: 0 current occupational status: employed 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 current occupational exposures/hazards: No pets and animals: Yes pets and animals: dog(s) history of recent travel: No sexually active: Yes Smoking Status: Current every day smoker tobacco type: e-cigarettes second hand exposure: No quit status: quit date established alcohol intake: current alcohol intake frequency: holidays/special occasions only details: Not while substance use type: marijuana well-balanced diet: rarely or never caffeine: Yes Type: tea eating out: 1-3 times/week during the past year weight has: remained stable what type of physical activity do you participate in: walking and running frequency: 1-2 times per week duration: 15-30 minutes/day stevenson/restorationism: Religion seatbelt use: always do you feel safe at home: Yes additional social history: : [employer] - [employer] making ROS ROS ED Constitutional Constitutional ED: Denies chills or fever(s) Eyes Eyes: Denies blurry vision ENT ENT ED: Denies ear pain Cardiovascular Cardiovascular: Denies chest pain Respiratory/Chest Respiratory/Chest: Denies cough or dyspnea Gastrointestinal Gastrointestinal: Reports diarrhea, nausea and vomiting; Denies abdominal pain or melena Genitourinary Genitourinary ED: Denies dysuria or hematuria Musculoskeletal Musculoskeletal: Denies arthralgias or back pain Integumentary Denies abscess or Abrasions Neurologic Neurologic: Denies headache(s) Psychiatric Psychiatric: Denies anxiety or depression Endocrine Endocrinology: Denies cold intolerance Hematologic/Lymphatic Hematologic/Lymphatic: Denies easy bleeding, easy bruising or lymphadenopathy Allergic/Immunologic Allergic/Immunologic ED: Denies mouth swelling, tongue swelling or urticaria EXAM Physical Exam Narrative Exam Narrative: 25-year-old female sitting upright in bed vital signs stable afebrile. Companied by her mom. Initial blood pressure 135/75. Pulse ox 99% on room air no signs hypoxia. She does not look septic or toxic. She does not look significantly dehydrated. H EENT exam moist mucous membranes. Neck nontender no JVD. Lungs clear to auscultation bilaterally. Heart regular rhythm rate about 60 no murmur. Chest wall ribs nontender. Back nontender. Abdomen soft, nontender, nondistended, normal bowel sounds without peritoneal signs. She is moving all 4 extremities. Calves are nontender without edema or cords. Normal masonry inspector strength. Normal dorsi plantarflexion. Neurologically she is awake alert. Answering questions and following commands. Const Vital Signs: 07/04/25 09:56 Temperature 97.9 F Temperature Source Oral Pulse Rate 60 Respiratory Rate 16 Blood Pressure 135/75 H Blood Pressure Mean 95 Pulse Ox 99 Oxygen Delivery Method Room Air MDM MDM MDM Narrative Medical decision making narrative: 25-year-old female nausea, vomiting diarrhea. had similar symptoms. Was likely viral gastroenteritis. She will be treated with a liter normal saline. Zofran for nausea. P.o. fluid challenge. Due to her I will check a chemistry panel and a urinalysis. She has been on no recent antibiotics no recent hospitalization nor recent travel outside the country I do not think she needs stool studies. Repeat exam patient is improved 11:14 AM. She has received IV fluids. She is able to hold down some fluids. Patient doing well. Abdomen is benign. She is having no urinary symptoms she has not been able to give us a urine sample yet I am and I canceled that. She will be discharged home with prescription of Zofran. She will follow-up as needed. She knows to return if worse. History & Record Review Discussion w/independent historian: Patient and Family Lab Data Attestation: I reviewed the patient's lab results. Lab results narrative: Chemistries show a gap of 12. Normal BUN and creatinine of 6 and 0.4. Glucose of 91. No significant signs of significant dehydration. Labs: Laboratory Results - last 24 hr 07/04/25 10:25 Sodium 136 Potassium 3.6 Chloride 102 Carbon Dioxide 23.0 Anion Gap 12 BUN 6 Creatinine 0.48 L Estim Creat Clear Calc 141.35 Est GFR (MDRD) Non-Af 133 BUN/Creatinine Ratio 12.7 Glucose 91 Calcium 8.3 Discharge Plan Triage Chief Complaint: Nausea/Vomiting/Diarrhea ED Provider: Jacques Woodall Dx/Rx/DC Orders Clinical Impression: Viral gastroenteritis, Dehydration, mild, First trimester , History of IBS Instructions: ED Gastroenteritis, Viral (Adult) Prescriptions: New ondansetron 4 mg tablet,disintegrating 4 mg PO Q6H PRN (Reason: nausea and vomiting) Qty: 10 0RF No Action Unisom (doxylamine) 25 mg tablet 12.5 mg PO QHS Qty: 30 3RF DHA 200 mg capsule PO pyridoxine (vitamin B6) 25 mg tablet 25 mg PO TID Qty: 90 3RF Primary Care Provider: Casi Ruffin Referrals: Jessi Raines DO [Med Staff - Active Staff, Obstetrics-Gynecology (OBGYN)] - 3-5 Days if not improving Casi Ruffin DO [Primary Care Provider, Internal Medicine] Activity Restrictions/Additional Instructions: Plenty of fluids and rest. Water, 7-Up, Gatorade, Pedialyte. Zofran as needed for nausea. You can swallow or let dissolve under your tongue. You should progressively improve if not follow-up with your PUBLIC IMPROVEMENT INSPECTOR or your primary care physician. Print Language: Mohawk Disposition Disposition: Home, Self Care
[2025-07-04 10:20] VITALS: BMI 25.4
[2025-07-04] MEDS: 0.9% Normal Saline (1000mL) 1,000 ML 1000 ML IV (10:23)
[2025-07-04 11:03] LABS: Anion Gap 12 (5-15); BUN 6 mg/dL (4-19); BUN/Creat Ratio 12.7 RATIO (10-20); Calcium,Total 8.3 mg/dL (7.6-11.0); Carbon Dioxide 23.0 mmol/L (21.0-32.0); Chloride 102 mmol/L (98-108); Estimated Creatinine Clearance 141.35 ml/min (50-250); Glucose 91 mg/dL (70-99); Potassium 3.6 mmol/L (3.3-5.1)
[2025-07-04 11:24] VITALS: BP 113/74; PULSE 64; RESP 16; TEMP 36.6; O2SAT 99
[2025-07-04 13:23] LABS: Mucous, Urine 0 SEEN /hpf (<or=2+)
[2025-07-04 13:26] LABS: Color, Urine Amber (Yellow); Glucose, Dipstick Normal (Normal); Ketone-Dipstick Negative (Negative); Leukocyte Esterase-Dipstick 500 /ul (Negative); Nitrite-Dipstick Positive (Negative); Occult Blood-Urine 250 /ul (Negative); Protein-Dipstick 100 mg/dl (Negative); Specific Gravity, Urine 1.025 (1.002-1.030)
[2025-07-04 13:27] LABS: Urine Bilirubin Dipstick 6 mg/dL (Negative)
[2025-07-04 13:35] LABS: Red Blood Cells-Urine > 100 SEEN /hpf (0-5); Squamous Epithelial Cells - UA 0-5 SEEN /hpf (5-10)
== END 2025-07-04 11:29 | disposition home or self-care (01) ==
PROVIDERS: Emergency Provider Emergency Medicine; PCP Internal Medicine; Visit Provider Emergency Medicine
DX: O98.811 Other maternal infectious and parasitic diseases complicating pregnancy, first trimester (principal); A08.4 Viral intestinal infection, unspecified; O99.281 Endocrine, nutritional and metabolic diseases complicating pregnancy, first trimester; E86.0 Dehydration; O99.611 Diseases of the digestive system complicating pregnancy, first trimester; K58.9 Irritable bowel syndrome, unspecified; O99.331 Smoking (tobacco) complicating pregnancy, first trimester; F17.290 Nicotine dependence, other tobacco product, uncomplicated; Z3A.11 11 weeks gestation of pregnancy
CPT/HCPCS: 80048; 81001; 96361; 96374; 96376; 99283; A4216; J2405

== ENCOUNTER → 2025-07-17 | Outpatient (CLI) | payer OTHER, SELFPAY ==
[2025-07-17 16:38] LABS: Hematocrit 32.4 % (37-47); Hemoglobin 11.0 g/dL (12.0-15.0); Immature Granulocytes Count 0.030 X10^3/uL (0.0-0.0); Mean Corp Hgb Conc 34.0 g/dL (32-36); Mean Corpuscular Volume 95.3 fL (81-99); Mean Platelet Vol. 10.0 fl (6.2-12.0); NRBC Flagged by Analyzer 0 % (0-5); Platelet Count 333 K/mm3 (150-450); RBC Distribution Width CV 11.6 % (11.6-14.6); RBC Distribution Width SD 40.0 fl (35.1-43.9); Red Blood Count 3.40 M/mm3 (4.2-5.4); White Blood Count 9.4 K/mm3 (4.4-11.0)
[2025-07-17 17:51] LABS: HIV Nonreactive (Nonreactive); Hepatitis B Surface Antigen Nonreactive (Nonreactive); Hepatitis C Antibody Nonreactive (Nonreactive); Syphilis Antibodies Nonreactive (Nonreactive)
== END | disposition home or self-care (01) ==
LOC: BWCLAB 14:49
PROVIDERS: Advanced Practice Midwife; Student in an Organized Health Care Education/Training Program; PCP Internal Medicine; Visit Provider Obstetrics & Gynecology
DX: O09.91 Supervision of high risk pregnancy, unspecified, first trimester (principal); Z3A.00 Weeks of gestation of pregnancy not specified
CPT/HCPCS: 36415; 85025; 86703; 86762; 86780; 86803; 86850; 86900; 86901; 87340